=== PATIENT | female | born 1945 | race Caucasian/White ===

== ENCOUNTER → 2019-07-27 | Emergency (ER) | payer OTHER, MEDICAID ==
[~2019-07-27] VITALS: Ht 170.2 cm; Wt 88.0 kg
[2019-07-27 15:57] LABS: Basophils # (auto) 0 10 ^3/uL (0-0.2); Basophils % (auto) 0.4 % (0.0-2.0); Eosinophils # (auto) 0.2 10 ^3/uL (0-0.8); Eosinophils % (auto) 1.9 % (0.0-7.0); Hematocrit 47.3 % (36.0-46.0); Hemoglobin 15.6 g/dL (12.2-16.2); Lymphocytes # (auto) 1.8 10 ^3/uL (0.4-5.4); Lymphocytes % (auto) 19.8 % (10.0-50.0); Mean Corpuscular Hemoglobin 28.9 pg (28.0-32.0); Mean Corpuscular Hgb Conc. 33.1 g/dL (32.0-36.0); Mean Corpuscular Volume 87.3 fL (80.0-100.0); Monocytes # (auto) 0.7 10 ^3/uL (0-1.3); Monocytes % (auto) 7.3 % (0.0-12.0); Neutrophils # (auto) 6.5 10 ^3/uL (1.6-8.6); Neutrophils % (auto) 70.6 % (37.0-80.0); Platelet Count (auto) 250 10^3/uL (140-450); Red Blood Cells 5.42 10^6/uL (4.0-5.20); Red Cell Distribution Width 15.4 % (11.8-14.3); White Blood Cell 9.2 10^3/uL (4.4-10.8)
[2019-07-27 16:10] LABS: Albumin 3.9 g/dL (3.4-5.0); Anion Gap 6 (5-15); Blood Urea Nitrogen 21 mg/dL (7-18); Calcium 9.1 mg/dL (8.5-10.1); Carbon Dioxide 27 mmol/L (21-32); Chloride 109 mmol/L (98-107); Glucose 110 mg/dL (74-106); Sodium 142 mmol/L (136-145)
[2019-07-27 16:16] LABS: Alanine Aminotransferase 41 U/L (13-56); Alkaline Phosphatase 122 U/L (45-117); Aspartate Aminotransferase 30 U/L (15-37); BUN/Creatinine Ratio 23.3; Bilirubin, Total 0.6 mg/dL (0.2-1.0); GFR African American 79 mL/min; GFR Non-African American 65 mL/min; Total Protein 7.5 g/dL (6.4-8.2)
[2019-07-27 16:55] VITALS: BP 151/79
== END | disposition home or self-care (01) ==
LOC: ER 13:19
DX: R06.00 Dyspnea, unspecified (principal); J44.9 Chronic obstructive pulmonary disease, unspecified; I10 Essential (primary) hypertension; Z90.89 Acquired absence of other organs
CPT/HCPCS: 36415; 71045; 80053; 83880; 84484; 85025; 85379; 93005

== ENCOUNTER → 2020-03-01 | Outpatient (CLI) | payer OTHER, MEDICAID | END | disposition home or self-care (01) | LOC: XYW 09:21 | PROVIDERS: ATTEND Internal Medicine | DX: I11.9 Hypertensive heart disease without heart failure (principal) | CPT/HCPCS: 93306 ==

== ENCOUNTER → 2020-08-15 | Outpatient (CLI) | payer OTHER, MEDICAID ==
[~2020-08-15] VITALS: Ht 170.2 cm; Wt 95.3 kg
[~2020-08-15] MED LIST: ADENOSINE 80 MG in GIVE UN-DILUTED 0 ML IV STA
[2020-08-15 10:01] VITALS: BP 167/93
== END | disposition home or self-care (01) ==
LOC: XY 07:57
PROVIDERS: ATTEND Internal Medicine
DX: I10 Essential (primary) hypertension (principal)
CPT/HCPCS: 78452; 93017; A9500; J0153

== ENCOUNTER → 2020-08-16 | Outpatient (CLI) | payer OTHER, MEDICAID | END | disposition home or self-care (01) | LOC: XY 08:39 | PROVIDERS: ATTEND Internal Medicine | DX: I10 Essential (primary) hypertension (principal) | CPT/HCPCS: 93975 ==

== ENCOUNTER 2020-11-08 11:35 | Emergency (ER) | payer OTHER, MEDICAID ==
[~2020-11-08] VITALS: Ht 170.2 cm; Wt 86.2 kg
[~2020-11-08 11:35] MED LIST changes: -ADENOSINE 80 MG in GIVE UN-DILUTED 0 ML IV STA; +ATOR20TA50 PO; +CHOL20007 PO; +IRBE300T79 PO; +LEVO25TA49 PO; +METO-289 PO; +PANT40TA2 PO
[2020-11-08 12:08] LABS: Basophils # (auto) 0.1 10 ^3/uL (0-0.2); Basophils % (auto) 1.5 % (0.0-2.0); Eosinophils # (auto) 0.1 10 ^3/uL (0-0.8); Eosinophils % (auto) 1.4 % (0.0-7.0); Hematocrit 44.9 % (36.0-46.0); Hemoglobin 15.3 g/dL (12.2-16.2); Lymphocytes # (auto) 1.2 10 ^3/uL (0.4-5.4); Lymphocytes % (auto) 18.3 % (10.0-50.0); Mean Corpuscular Hemoglobin 29.7 pg (28.0-32.0); Mean Corpuscular Hgb Conc. 34.1 g/dL (32.0-36.0); Mean Corpuscular Volume 87.2 fL (80.0-100.0); Monocytes # (auto) 0.5 10 ^3/uL (0-1.3); Monocytes % (auto) 7.2 % (0.0-12.0); Neutrophils # (auto) 4.8 10 ^3/uL (1.6-8.6); Neutrophils % (auto) 71.6 % (37.0-80.0); Platelet Count (auto) 208 10^3/uL (140-450); Red Blood Cells 5.16 10^6/uL (4.0-5.20); Red Cell Distribution Width 14.7 % (11.8-14.3); White Blood Cell 6.6 10^3/uL (4.4-10.8)
[2020-11-08 12:27] LABS: Albumin 4.2 g/dL (3.4-5.0); Calcium 9.5 mg/dL (8.5-10.1); Magnesium 1.9 mg/dL (1.6-2.6); Potassium 4.1 mmol/L (3.5-5.1)
[2020-11-08 12:33] LABS: BUN/Creatinine Ratio 14.2; Bilirubin, Total 0.8 mg/dL (0.2-1.0); Total Protein 7.2 g/dL (6.4-8.2)
[2020-11-08] MEDS ORDERED: ONDANSETRON HCL 4 MG/2 ML VIAL IV ONE (13:00)
[2020-11-08] MEDS ORDERED: SODIUM CHLORIDE 0.9% 1,000 ML IVB ONE (13:00)
[2020-11-08 13:28] LABS: Magnesium 1.7 mg/dL (1.6-2.6)
[2020-11-08 14:40] LABS: Urine Bacteria NONE SEEN /hpf (None Seen); Urine Blood Negative /uL (Negative); Urine Hyaline Cast MOD /lpf (0 - 2); Urine Mucus FEW (None Seen); Urine Specific Gravity 1.028 (1.001-1.035); Urine WBC 35 /hpf (0 - 5); Urine WBC Clumps PRESENT /hpf (None Seen)
[2020-11-08] MEDS ORDERED: cefTRIAXone 1GM/50ML D5W 50 ML IV ONE (15:30)
[2020-11-08 16:32] VITALS: BP 126/106
== END 2020-11-08 16:38 | disposition home or self-care (01) ==
LOC: ER 11:35
DX: N39.0 Urinary tract infection, site not specified (principal); R11.0 Nausea; D13.5 Benign neoplasm of extrahepatic bile ducts; J44.9 Chronic obstructive pulmonary disease, unspecified; K21.9 Gastro-esophageal reflux disease without esophagitis; I10 Essential (primary) hypertension; Z90.89 Acquired absence of other organs; Z88.8 Allergy status to other drugs, medicaments and biological substances; Z79.899 Other long term (current) drug therapy
CPT/HCPCS: 36415; 71045; 74176; 76705; 80053; 81001; 82962; 83690; 83735; 84484; 85025; 96361; 96365; 96375; 99285; J0696; J2405; J7030

== ENCOUNTER 2020-11-10 23:24 | Emergency (ER) | payer OTHER, MEDICAID ==
[~2020-11-10] VITALS: Ht 170.2 cm; Wt 85.3 kg
[2020-11-11 01:27] LABS: Urine Bacteria NONE SEEN /hpf (None Seen); Urine Blood Negative /uL (Negative); Urine Mucus FEW (None Seen); Urine Specific Gravity 1.018 (1.001-1.035); Urine WBC 8 /hpf (0 - 5)
[2020-11-11 02:05] LABS: Basophils # (auto) 0 10 ^3/uL (0-0.2); Basophils % (auto) 0.4 % (0.0-2.0); Eosinophils # (auto) 0.1 10 ^3/uL (0-0.8); Eosinophils % (auto) 1.2 % (0.0-7.0); Hematocrit 45.8 % (36.0-46.0); Lymphocytes # (auto) 1.4 10 ^3/uL (0.4-5.4); Lymphocytes % (auto) 15.3 % (10.0-50.0); Mean Corpuscular Hgb Conc. 32.7 g/dL (32.0-36.0); Mean Corpuscular Volume 88.8 fL (80.0-100.0); Monocytes # (auto) 0.6 10 ^3/uL (0-1.3); Monocytes % (auto) 6.6 % (0.0-12.0); Neutrophils # (auto) 6.8 10 ^3/uL (1.6-8.6); Neutrophils % (auto) 76.5 % (37.0-80.0); Nucleated Red Blood Cells % 0.1 %; Platelet Count (auto) 187 10^3/uL (140-450); Red Blood Cells 5.15 10^6/uL (4.0-5.20); Red Cell Distribution Width 14.8 % (11.8-14.3); White Blood Cell 8.9 10^3/uL (4.4-10.8)
[2020-11-11 02:23] LABS: Albumin 3.7 g/dL (3.4-5.0); BUN/Creatinine Ratio 14.5; Calcium 8.7 mg/dL (8.5-10.1); Potassium 3.8 mmol/L (3.5-5.1)
[2020-11-11 02:26] LABS: Bilirubin, Total 1.4 mg/dL (0.2-1.0); Total Protein 6.9 g/dL (6.4-8.2)
[2020-11-11] MEDS ORDERED: cefTRIAXone 1GM/50ML D5W 50 ML IV ONE (11:00)
[2020-11-11 12:21] VITALS: BP 128/68
== END 2020-11-11 12:55 | disposition home or self-care (01) ==
LOC: ER 23:24
DX: E86.0 Dehydration (principal); N39.0 Urinary tract infection, site not specified; C34.11 Malignant neoplasm of upper lobe, right bronchus or lung; J44.9 Chronic obstructive pulmonary disease, unspecified; K21.9 Gastro-esophageal reflux disease without esophagitis; E78.5 Hyperlipidemia, unspecified; I10 Essential (primary) hypertension; Z86.73 Personal history of transient ischemic attack (TIA), and cerebral infarction without residual deficits
CPT/HCPCS: 36415; 71045; 80053; 81001; 85025; 96365; 99284; J0696

== ENCOUNTER 2020-11-17 14:24 | Emergency (ER) | payer OTHER, MEDICAID ==
[~2020-11-17] VITALS: Ht 170.2 cm; Wt 85.3 kg
[2020-11-17 15:22] LABS: Basophils # (auto) 0.1 10 ^3/uL (0-0.2); Basophils % (auto) 1.7 % (0.0-2.0); Eosinophils # (auto) 0.3 10 ^3/uL (0-0.8); Hematocrit 44.5 % (36.0-46.0); Hemoglobin 15.4 g/dL (12.2-16.2); Lymphocytes # (auto) 1.3 10 ^3/uL (0.4-5.4); Lymphocytes % (auto) 20.6 % (10.0-50.0); Mean Corpuscular Hemoglobin 29.5 pg (28.0-32.0); Mean Corpuscular Hgb Conc. 34.6 g/dL (32.0-36.0); Mean Corpuscular Volume 85.5 fL (80.0-100.0); Monocytes # (auto) 0.6 10 ^3/uL (0-1.3); Monocytes % (auto) 8.7 % (0.0-12.0); Neutrophils # (auto) 4.1 10 ^3/uL (1.6-8.6); Nucleated Red Blood Cells % 0.1 %; Red Cell Distribution Width 15.3 % (11.8-14.3); White Blood Cell 6.3 10^3/uL (4.4-10.8)
[2020-11-17 15:38] LABS: Albumin 3.9 g/dL (3.4-5.0); Potassium 3.2 mmol/L (3.5-5.1)
[2020-11-17 15:42] LABS: BUN/Creatinine Ratio 23.1; Bilirubin, Total 0.8 mg/dL (0.2-1.0); Total Protein 7.1 g/dL (6.4-8.2)
[2020-11-17] MEDS ORDERED: POTASSIUM EFFERVESENT TAB 25 MEQ PO ONE (16:30)
[2020-11-17 16:52] LABS: Urine Bacteria NONE SEEN /hpf (None Seen); Urine Blood 1+ /uL (Negative); Urine Hyaline Cast MANY /lpf (0 - 2); Urine Mucus MANY (None Seen); Urine Specific Gravity 1.031 (1.001-1.035); Urine WBC 5 /hpf (0 - 5)
[2020-11-17 18:22] VITALS: BP 142/69
== END 2020-11-17 18:29 | disposition home or self-care (01) ==
LOC: ER 14:24
DX: N39.0 Urinary tract infection, site not specified (principal); I10 Essential (primary) hypertension; J44.9 Chronic obstructive pulmonary disease, unspecified; K21.9 Gastro-esophageal reflux disease without esophagitis; E78.5 Hyperlipidemia, unspecified; Z90.89 Acquired absence of other organs; Z85.118 Personal history of other malignant neoplasm of bronchus and lung; Z86.73 Personal history of transient ischemic attack (TIA), and cerebral infarction without residual deficits; Z88.8 Allergy status to other drugs, medicaments and biological substances; Z79.899 Other long term (current) drug therapy
CPT/HCPCS: 36415; 71045; 74176; 80053; 81001; 85025; 85049

== ENCOUNTER 2020-11-27 16:14 | Emergency (ER) | payer OTHER, MEDICAID ==
[~2020-11-27] VITALS: Ht 170.2 cm; Wt 81.6 kg
[2020-11-27 18:20] LABS: Urine WBC None Seen /hpf (0 - 5)
[2020-11-27 18:28] LABS: Basophils # (auto) 0.1 10 ^3/uL (0-0.2); Basophils % (auto) 1.2 % (0.0-2.0); Eosinophils # (auto) 0.2 10 ^3/uL (0-0.8); Eosinophils % (auto) 2.7 % (0.0-7.0); Hematocrit 43.7 % (36.0-46.0); Hemoglobin 15.2 g/dL (12.2-16.2); Lymphocytes # (auto) 1.6 10 ^3/uL (0.4-5.4); Lymphocytes % (auto) 21.7 % (10.0-50.0); Mean Corpuscular Hgb Conc. 34.8 g/dL (32.0-36.0); Mean Corpuscular Volume 86.2 fL (80.0-100.0); Monocytes # (auto) 0.5 10 ^3/uL (0-1.3); Monocytes % (auto) 7.4 % (0.0-12.0); Neutrophils # (auto) 4.8 10 ^3/uL (1.6-8.6); Nucleated Red Blood Cells % 0.1 %; Platelet Count (auto) 236 10^3/uL (140-450); Red Blood Cells 5.07 10^6/uL (4.0-5.20); Red Cell Distribution Width 15.8 % (11.8-14.3); White Blood Cell 7.1 10^3/uL (4.4-10.8)
[2020-11-27] MEDS ORDERED: ONDANSETRON ODT 4 MG TAB PO ONE (18:30)
[2020-11-27 18:44] LABS: Albumin 4.4 g/dL (3.4-5.0); Calcium 9.2 mg/dL (8.5-10.1); Potassium 3.3 mmol/L (3.5-5.1)
[2020-11-27 18:47] LABS: Bilirubin, Total 0.7 mg/dL (0.2-1.0); Total Protein 7.5 g/dL (6.4-8.2)
[2020-11-27 18:51] LABS: Urine Bacteria NONE SEEN /hpf (None Seen); Urine Blood Negative /uL (Negative); Urine Mucus FEW (None Seen); Urine Specific Gravity 1.017 (1.001-1.035)
[2020-11-27] MEDS ORDERED: SODIUM CHLORIDE 0.9% 500 ML IV ONE (20:15)
[2020-11-27] MEDS ORDERED: ONDANSETRON HCL 4 MG/2 ML VIAL IV ONE (20:15)
[2020-11-27 20:55] VITALS: BP 110/63
== END 2020-11-27 22:00 | disposition home or self-care (01) ==
LOC: ER 16:14
DX: K29.70 Gastritis, unspecified, without bleeding (principal); J44.9 Chronic obstructive pulmonary disease, unspecified; K21.9 Gastro-esophageal reflux disease without esophagitis; E78.5 Hyperlipidemia, unspecified; I10 Essential (primary) hypertension; Z86.73 Personal history of transient ischemic attack (TIA), and cerebral infarction without residual deficits
CPT/HCPCS: 36415; 80053; 81001; 83605; 85025; 85049; 93005; 99284; J7040; Q0162

== ENCOUNTER 2020-12-18 16:27 | Emergency (ER) | payer OTHER, MEDICAID ==
[~2020-12-18] VITALS: Ht 170.2 cm; Wt 79.4 kg
[2020-12-18 19:08] LABS: Urine Bacteria FEW /hpf (None Seen); Urine Blood Negative /uL (Negative); Urine Hyaline Cast FEW /lpf (0 - 2); Urine Mucus FEW (None Seen); Urine Specific Gravity 1.022 (1.001-1.035); Urine WBC 7 /hpf (0 - 5)
[2020-12-18 19:31] LABS: Basophils # (auto) 0 10 ^3/uL (0-0.2); Basophils % (auto) 0.7 % (0.0-2.0); Eosinophils # (auto) 0.2 10 ^3/uL (0-0.8); Eosinophils % (auto) 2.6 % (0.0-7.0); Hematocrit 45.4 % (36.0-46.0); Hemoglobin 15.4 g/dL (12.2-16.2); Lymphocytes # (auto) 1.4 10 ^3/uL (0.4-5.4); Lymphocytes % (auto) 21.8 % (10.0-50.0); Mean Corpuscular Hemoglobin 29.6 pg (28.0-32.0); Mean Corpuscular Hgb Conc. 33.8 g/dL (32.0-36.0); Mean Corpuscular Volume 87.4 fL (80.0-100.0); Monocytes # (auto) 0.5 10 ^3/uL (0-1.3); Monocytes % (auto) 7.5 % (0.0-12.0); Neutrophils # (auto) 4.4 10 ^3/uL (1.6-8.6); Neutrophils % (auto) 67.4 % (37.0-80.0); Red Cell Distribution Width 16.3 % (11.8-14.3); White Blood Cell 6.5 10^3/uL (4.4-10.8)
[2020-12-18 19:44] LABS: Calcium 9.7 mg/dL (8.5-10.1); Potassium 3.4 mmol/L (3.5-5.1)
[2020-12-18 19:50] LABS: Albumin 4.3 g/dL (3.4-5.0); BUN/Creatinine Ratio 21.1; Bilirubin, Total 0.9 mg/dL (0.2-1.0); Magnesium 2.4 mg/dL (1.6-2.6); Total Protein 7.7 g/dL (6.4-8.2)
[2020-12-18 21:10] VITALS: BP 165/81
== END 2020-12-18 21:12 | disposition home or self-care (01) ==
LOC: ER 16:27
DX: N39.0 Urinary tract infection, site not specified (principal); R53.1 Weakness; J44.9 Chronic obstructive pulmonary disease, unspecified; K21.9 Gastro-esophageal reflux disease without esophagitis; E78.5 Hyperlipidemia, unspecified; I10 Essential (primary) hypertension; Z86.73 Personal history of transient ischemic attack (TIA), and cerebral infarction without residual deficits
CPT/HCPCS: 36415; 80053; 81001; 83735; 85025; 93005

== ENCOUNTER 2021-01-11 12:51 | Inpatient (IN) | payer OTHER, MEDICAID ==
[~2021-01-11] VITALS: Ht 170.2 cm; Wt 81.4 kg
[2021-01-11] MEDS ORDERED: SODIUM CHLORIDE 0.9% 1,000 ML IVB ONE (14:45)
[2021-01-11] MEDS ORDERED: ONDANSETRON HCL 4 MG/2 ML VIAL IV ONE (14:45)
[2021-01-11 14:53] LABS: Basophils # (auto) 0 10 ^3/uL (0-0.2); Basophils % (auto) 0.7 % (0.0-2.0); Eosinophils # (auto) 0.1 10 ^3/uL (0-0.8); Hematocrit 43.2 % (36.0-46.0); Hemoglobin 14.3 g/dL (12.2-16.2); Lymphocytes # (auto) 1.5 10 ^3/uL (0.4-5.4); Lymphocytes % (auto) 20.8 % (10.0-50.0); Mean Corpuscular Hemoglobin 29.5 pg (28.0-32.0); Mean Corpuscular Hgb Conc. 33.1 g/dL (32.0-36.0); Mean Corpuscular Volume 89.2 fL (80.0-100.0); Monocytes # (auto) 0.6 10 ^3/uL (0-1.3); Monocytes % (auto) 8.1 % (0.0-12.0); Neutrophils # (auto) 4.8 10 ^3/uL (1.6-8.6); Neutrophils % (auto) 68.4 % (37.0-80.0); Nucleated Red Blood Cells % 0.1 %; Red Blood Cells 4.85 10^6/uL (4.0-5.20); Red Cell Distribution Width 16.5 % (11.8-14.3)
[2021-01-11 15:09] LABS: Albumin 3.8 g/dL (3.4-5.0); Anion Gap 5 (5-15); Blood Urea Nitrogen 16 mg/dL (7-18); Calcium 9.4 mg/dL (8.5-10.1); Carbon Dioxide 28 mmol/L (21-32); Chloride 107 mmol/L (98-107); Glucose 118 mg/dL (74-106); Lipase 61 U/L (73-393); Magnesium 2.3 mg/dL (1.6-2.6); Potassium 3.9 mmol/L (3.5-5.1); Sodium 140 mmol/L (136-145)
[2021-01-11 15:19] LABS: Alanine Aminotransferase 107 U/L (13-56); Alkaline Phosphatase 75 U/L (45-117); Aspartate Aminotransferase 50 U/L (15-37); BUN/Creatinine Ratio 24.2; Bilirubin, Total 0.8 mg/dL (0.2-1.0); GFR African American 112 mL/min; GFR Non-African American 93 mL/min; Total Protein 6.9 g/dL (6.4-8.2)
[2021-01-11 16:09] LABS: Urine Bacteria NONE SEEN /hpf (None Seen); Urine Blood Negative /uL (Negative); Urine Hyaline Cast MOD /lpf (0 - 2); Urine Mucus MODERATE (None Seen); Urine WBC 11 /hpf (0 - 5)
[2021-01-11] MEDS ORDERED: cefTRIAXone 1GM/50ML D5W 50 ML IV ONE (16:30)
[2021-01-11] MEDS ORDERED: ALBUTEROL SULF 2.5 MG/0.5ML(0.5%) NEB SOLN NEB PRN (18:15)
[2021-01-11] MEDS ORDERED: MORPHINE SULFATE INJECTION 2 MG/ML SYRG IV PRN ×2 (18:15)
[2021-01-11] MEDS ORDERED: ACETAMINOPHEN 500 MG TAB PO PRN (18:15)
[2021-01-11] MEDS ORDERED: LORazepam 0.5 MG TAB PO PRN (18:15)
[2021-01-11] MEDS ORDERED: ONDANSETRON HCL 4 MG/2 ML VIAL IV PRN (18:15)
[2021-01-11] MEDS ORDERED: IPRATROPIUM BROM 0.5 MG/2.5ML INH SOL NEB PRN (18:15)
[2021-01-11] MEDS ORDERED: DOCUSATE CALCIUM 240 MG CAP PO PRN (18:15)
[2021-01-11] MEDS ORDERED: NITROGLYCERIN 0.4 MG SL TAB SL PRN (18:15)
[2021-01-12] MEDS: SODIUM CHLORIDE 0.9% 1,000 ML IV SCH ×3 (03:24→21:10)
[2021-01-12 05:06] LABS: Basophils # (auto) 0 10 ^3/uL (0-0.2); Basophils % (auto) 0.6 % (0.0-2.0); Eosinophils # (auto) 0.2 10 ^3/uL (0-0.8); Eosinophils % (auto) 3.6 % (0.0-7.0); Hematocrit 43.9 % (36.0-46.0); Hemoglobin 14.6 g/dL (12.2-16.2); Lymphocytes # (auto) 1.5 10 ^3/uL (0.4-5.4); Lymphocytes % (auto) 26.1 % (10.0-50.0); Mean Corpuscular Hemoglobin 29.8 pg (28.0-32.0); Mean Corpuscular Hgb Conc. 33.2 g/dL (32.0-36.0); Mean Corpuscular Volume 89.6 fL (80.0-100.0); Monocytes # (auto) 0.5 10 ^3/uL (0-1.3); Monocytes % (auto) 8.5 % (0.0-12.0); Neutrophils # (auto) 3.4 10 ^3/uL (1.6-8.6); Neutrophils % (auto) 61.2 % (37.0-80.0); Nucleated Red Blood Cells % 0.3 %; Red Cell Distribution Width 16.2 % (11.8-14.3); White Blood Cell 5.6 10^3/uL (4.4-10.8)
[2021-01-12 05:20] LABS: INR 1.09 (0.9-1.15)
[2021-01-12 05:30] LABS: Potassium 3.5 mmol/L (3.5-5.1)
[2021-01-12 05:33] LABS: Albumin 3.8 g/dL (3.4-5.0); Bilirubin, Total 0.7 mg/dL (0.2-1.0); Calcium 9.1 mg/dL (8.5-10.1); Total Protein 7.1 g/dL (6.4-8.2)
[2021-01-12] MEDS: cefTRIAXone 1GM/50ML D5W 50 ML IV SCH (08:33)
[2021-01-12] MEDS: PANTOPRAZOLE 40 MG TAB PO SCH (08:33)
[2021-01-12] MEDS: ENOXAPARIN SOD 40 MG/0.4 ML SYRINGE SC SCH (08:50)
[2021-01-12 16:00] VITALS: BP 144/77
[2021-01-12 22:00] VITALS: BP 112/59
[2021-01-13] MEDS: SODIUM CHLORIDE 0.9% 1,000 ML IV SCH ×2 (00:46→10:30)
[2021-01-13 05:00] VITALS: BP 122/65
[2021-01-13 09:00] VITALS: BP 135/77
[2021-01-13] MEDS: cefTRIAXone 1GM/50ML D5W 50 ML IV SCH (09:00)
[2021-01-13] MEDS: PANTOPRAZOLE 40 MG TAB PO SCH (10:00)
[2021-01-13] MEDS: ENOXAPARIN SOD 40 MG/0.4 ML SYRINGE SC SCH (10:00)
[2021-01-13 13:00] VITALS: BP 151/81
[2021-01-13 16:50] VITALS: BP 148/97
[2021-01-13] MEDS: SUCRALFATE 1 GM/10 ML ORAL SUSP PO SCH ×2 (17:00→22:15)
[2021-01-13 20:00] VITALS: BP 141/77
[2021-01-13 22:00] VITALS: BP 141/72
[2021-01-14] VITALS (7 sets, daily range): BP systolic 127–166; BP diastolic 46–90
[2021-01-14] MEDS: LABETALOL HCL 5 MG/ML 4ML SYRINGE IV PRN (04:59)
[2021-01-14] MEDS: SUCRALFATE 1 GM/10 ML ORAL SUSP PO SCH ×4 (06:35→21:53)
[2021-01-14] MEDS: cefTRIAXone 1GM/50ML D5W 50 ML IV SCH (09:00)
[2021-01-14] MEDS: PANTOPRAZOLE 40 MG TAB PO SCH (10:00)
[2021-01-14] MEDS: ENOXAPARIN SOD 40 MG/0.4 ML SYRINGE SC SCH (10:00)
[2021-01-14] MEDS ORDERED: LACTULOSE 20Gm/30ML SOLN PO ONE (10:30)
[2021-01-14] MEDS: SODIUM CHLORIDE 0.9% 1,000 ML IV SCH (13:10)
[2021-01-15] MEDS: SODIUM CHLORIDE 0.9% 1,000 ML IV SCH (02:43)
[2021-01-15] MEDS: LABETALOL HCL 5 MG/ML 4ML SYRINGE IV PRN (03:46)
[2021-01-15 05:30] VITALS: BP 158/76
[2021-01-15] MEDS: SUCRALFATE 1 GM/10 ML ORAL SUSP PO SCH ×4 (06:30→22:26)
[2021-01-15 09:00] VITALS: BP_SYST 145; BP_SYST 147; BP_DIAS 77
[2021-01-15] MEDS: ENOXAPARIN SOD 40 MG/0.4 ML SYRINGE SC SCH (09:32)
[2021-01-15] MEDS: PANTOPRAZOLE 40 MG TAB PO SCH (09:32)
[2021-01-15] MEDS: cefTRIAXone 1GM/50ML D5W 50 ML IV SCH (09:33)
[2021-01-15 22:00] VITALS: BP 137/80
[2021-01-15] MEDS: VANCOMYCIN HCL 125MG/5ML ORAL SOL PO SCH ×2 (22:26→22:46)
[2021-01-15] MEDS: metroNIDAZOLE 500MG/100ML 100 ML IV SCH (22:26)
[2021-01-16 05:00] VITALS: BP 130/71
[2021-01-16] MEDS: SODIUM CHLORIDE 0.9% 1,000 ML IV SCH (05:10)
[2021-01-16] MEDS: VANCOMYCIN HCL 125MG/5ML ORAL SOL PO SCH ×3 (05:44→12:00)
[2021-01-16] MEDS: metroNIDAZOLE 500MG/100ML 100 ML IV SCH (05:57)
[2021-01-16] MEDS: SUCRALFATE 1 GM/10 ML ORAL SUSP PO SCH ×2 (05:59→11:30)
[2021-01-16 08:45] VITALS: BP 152/85
[2021-01-16] MEDS: ENOXAPARIN SOD 40 MG/0.4 ML SYRINGE SC SCH (09:00)
[2021-01-16] MEDS: cefTRIAXone 1GM/50ML D5W 50 ML IV SCH (09:00)
[2021-01-16] MEDS: PANTOPRAZOLE 40 MG TAB PO SCH (09:00)
[2021-01-16 12:04] VITALS: BP 138/74
== END 2021-01-16 12:40 | disposition home or self-care (01) | DRG 372 ==
LOC: ER 12:51 → TELE 18:06 → TELE-CENTR 01-12 15:34
PROVIDERS: ADMIT Family Medicine; ATTEND Family Medicine
DX: A04.72 Enterocolitis due to Clostridium difficile, not specified as recurrent (principal); N39.0 Urinary tract infection, site not specified; R64 Cachexia; K80.20 Calculus of gallbladder without cholecystitis without obstruction; Z20.822 Contact with and (suspected) exposure to COVID-19; E86.0 Dehydration; R73.9 Hyperglycemia, unspecified; E03.9 Hypothyroidism, unspecified; I10 Essential (primary) hypertension; I70.8 Atherosclerosis of other arteries; J44.9 Chronic obstructive pulmonary disease, unspecified; K44.9 Diaphragmatic hernia without obstruction or gangrene; K21.9 Gastro-esophageal reflux disease without esophagitis; R13.10 Dysphagia, unspecified; E78.5 Hyperlipidemia, unspecified; Z85.118 Personal history of other malignant neoplasm of bronchus and lung; Z88.8 Allergy status to other drugs, medicaments and biological substances; Z68.26 Body mass index [BMI] 26.0-26.9, adult; Z86.73 Personal history of transient ischemic attack (TIA), and cerebral infarction without residual deficits; Z87.440 Personal history of urinary (tract) infections; Z90.2 Acquired absence of lung [part of]; Z90.89 Acquired absence of other organs; Z87.891 Personal history of nicotine dependence; Z79.899 Other long term (current) drug therapy
CPT/HCPCS: 36415; 70450; 71045; 74176; 76705; 78226; 80053; 81001; 83036; 83690; 83735; 84443; 84484; 85025; 85610; 87086; 87426; 87493; 93005; 96374; G0378; J0696; J2405; J3490

== ENCOUNTER 2021-01-20 15:01 | Emergency (ER) | payer OTHER, MEDICAID ==
[~2021-01-20] VITALS: Ht 170.2 cm; Wt 74.8 kg
[2021-01-20] MEDS ORDERED: SODIUM CHLORIDE 0.9% 1,000 ML IV ONE (16:15)
[2021-01-20 16:56] LABS: Basophils # (auto) 0.1 10 ^3/uL (0-0.2); Basophils % (auto) 1.4 % (0.0-2.0); Eosinophils # (auto) 0.1 10 ^3/uL (0-0.8); Hematocrit 43.6 % (36.0-46.0); Hemoglobin 14.6 g/dL (12.2-16.2); Lymphocytes # (auto) 1.3 10 ^3/uL (0.4-5.4); Lymphocytes % (auto) 21.4 % (10.0-50.0); Mean Corpuscular Hemoglobin 29.9 pg (28.0-32.0); Mean Corpuscular Hgb Conc. 33.4 g/dL (32.0-36.0); Mean Corpuscular Volume 89.6 fL (80.0-100.0); Monocytes # (auto) 0.5 10 ^3/uL (0-1.3); Monocytes % (auto) 9.2 % (0.0-12.0); Neutrophils # (auto) 3.9 10 ^3/uL (1.6-8.6); Nucleated Red Blood Cells % 0.1 %; Red Blood Cells 4.87 10^6/uL (4.0-5.20); Red Cell Distribution Width 16.3 % (11.8-14.3); White Blood Cell 5.9 10^3/uL (4.4-10.8)
[2021-01-20 17:12] LABS: Albumin 3.6 g/dL (3.4-5.0); Anion Gap 8 (5-15); Blood Urea Nitrogen 11 mg/dL (7-18); Calcium 9.4 mg/dL (8.5-10.1); Carbon Dioxide 26 mmol/L (21-32); Chloride 110 mmol/L (98-107); Glucose 94 mg/dL (74-106); Potassium 3.4 mmol/L (3.5-5.1); Sodium 144 mmol/L (136-145)
[2021-01-20 17:21] LABS: Alanine Aminotransferase 181 U/L (13-56); Alkaline Phosphatase 84 U/L (45-117); Aspartate Aminotransferase 119 U/L (15-37); BUN/Creatinine Ratio 15.9; Bilirubin, Total 0.9 mg/dL (0.2-1.0); GFR African American 107 mL/min; GFR Non-African American 88 mL/min; Total Protein 6.4 g/dL (6.4-8.2)
[2021-01-20 18:16] VITALS: BP 141/69
== END 2021-01-20 18:30 | disposition home or self-care (01) ==
LOC: ER 15:01
DX: A04.72 Enterocolitis due to Clostridium difficile, not specified as recurrent (principal); E87.6 Hypokalemia; K80.80 Other cholelithiasis without obstruction; J44.9 Chronic obstructive pulmonary disease, unspecified; E78.5 Hyperlipidemia, unspecified; I10 Essential (primary) hypertension; Z90.89 Acquired absence of other organs; Z88.8 Allergy status to other drugs, medicaments and biological substances; Z86.73 Personal history of transient ischemic attack (TIA), and cerebral infarction without residual deficits
CPT/HCPCS: 36415; 71045; 74176; 80053; 84484; 85025; 96360; 99285; J7030

== ENCOUNTER 2021-01-23 13:35 | Emergency (ER) | payer OTHER, MEDICAID ==
[~2021-01-23] VITALS: Ht 170.2 cm; Wt 72.6 kg
[2021-01-23 13:40] VITALS: BP 133/90
[2021-01-23] MEDS ORDERED: SODIUM CHLORIDE 0.9% 1,000 ML IV ONE ×2 (15:15)
[2021-01-23 16:36] LABS: Basophils # (auto) 0 10 ^3/uL (0-0.2); Basophils % (auto) 0.9 % (0.0-2.0); Eosinophils # (auto) 0.1 10 ^3/uL (0-0.8); Eosinophils % (auto) 2.5 % (0.0-7.0); Hematocrit 42.8 % (36.0-46.0); Hemoglobin 14.5 g/dL (12.2-16.2); Lymphocytes # (auto) 1.5 10 ^3/uL (0.4-5.4); Lymphocytes % (auto) 25.8 % (10.0-50.0); Mean Corpuscular Hemoglobin 30.2 pg (28.0-32.0); Mean Corpuscular Hgb Conc. 33.9 g/dL (32.0-36.0); Mean Corpuscular Volume 89.2 fL (80.0-100.0); Monocytes # (auto) 0.5 10 ^3/uL (0-1.3); Monocytes % (auto) 9.5 % (0.0-12.0); Neutrophils # (auto) 3.4 10 ^3/uL (1.6-8.6); Neutrophils % (auto) 61.3 % (37.0-80.0); Nucleated Red Blood Cells % 0.2 %; Red Cell Distribution Width 15.6 % (11.8-14.3); White Blood Cell 5.6 10^3/uL (4.4-10.8)
[2021-01-23 16:55] LABS: Albumin 3.8 g/dL (3.4-5.0)
[2021-01-23 17:01] LABS: BUN/Creatinine Ratio 6.8; Bilirubin, Total 0.8 mg/dL (0.2-1.0); Total Protein 6.7 g/dL (6.4-8.2)
== END 2021-01-23 19:47 | disposition home or self-care (01) ==
LOC: ER 13:37
DX: R53.1 Weakness (principal); R10.84 Generalized abdominal pain; R11.2 Nausea with vomiting, unspecified; R19.7 Diarrhea, unspecified; J44.9 Chronic obstructive pulmonary disease, unspecified; K21.9 Gastro-esophageal reflux disease without esophagitis; E78.5 Hyperlipidemia, unspecified; I10 Essential (primary) hypertension; Z90.89 Acquired absence of other organs; Z79.899 Other long term (current) drug therapy; Z88.8 Allergy status to other drugs, medicaments and biological substances
CPT/HCPCS: 36415; 80053; 84484; 85025; 93005

== ENCOUNTER 2021-02-06 17:19 | Emergency (ER) | payer OTHER, MEDICAID ==
[~2021-02-06] VITALS: Ht 170.2 cm; Wt 71.7 kg
[2021-02-06] MEDS ORDERED: SODIUM CHLORIDE 0.9% 1,000 ML IV ONE (17:30)
[2021-02-06 19:13] LABS: Basophils # (auto) 0 10 ^3/uL (0-0.2); Basophils % (auto) 0.7 % (0.0-2.0); Eosinophils # (auto) 0.2 10 ^3/uL (0-0.8); Eosinophils % (auto) 2.7 % (0.0-7.0); Hematocrit 44.2 % (36.0-46.0); Hemoglobin 14.8 g/dL (12.2-16.2); Lymphocytes # (auto) 1.5 10 ^3/uL (0.4-5.4); Lymphocytes % (auto) 21.3 % (10.0-50.0); Mean Corpuscular Hgb Conc. 33.6 g/dL (32.0-36.0); Mean Corpuscular Volume 89.4 fL (80.0-100.0); Monocytes # (auto) 0.4 10 ^3/uL (0-1.3); Monocytes % (auto) 6.1 % (0.0-12.0); Neutrophils % (auto) 69.2 % (37.0-80.0); Red Blood Cells 4.94 10^6/uL (4.0-5.20); Red Cell Distribution Width 15.1 % (11.8-14.3); White Blood Cell 7.2 10^3/uL (4.4-10.8)
[2021-02-06 19:27] LABS: INR 1.03 (0.9-1.15); Partial Thromboplastin Time 24.5 sec (23.6-33.0)
[2021-02-06 19:29] LABS: Alanine Aminotransferase 66 U/L (13-56); Anion Gap 8 (5-15); Aspartate Aminotransferase 36 U/L (15-37); BUN/Creatinine Ratio 34.4; Blood Urea Nitrogen 21 mg/dL (7-18); Calcium 9.5 mg/dL (8.5-10.1); Carbon Dioxide 26 mmol/L (21-32); Chloride 109 mmol/L (98-107); GFR African American 123 mL/min; GFR Non-African American 102 mL/min; Glucose 96 mg/dL (74-106); Potassium 3.3 mmol/L (3.5-5.1); Sodium 143 mmol/L (136-145)
[2021-02-06 19:35] LABS: Alkaline Phosphatase 65 U/L (45-117); Bilirubin, Total 0.7 mg/dL (0.2-1.0); Total Protein 7.2 g/dL (6.4-8.2)
[2021-02-07 04:42] VITALS: BP 154/80
== END 2021-02-07 04:52 | disposition home or self-care (01) ==
LOC: ER 17:19
DX: R62.7 Adult failure to thrive (principal); R53.1 Weakness; I10 Essential (primary) hypertension; J44.9 Chronic obstructive pulmonary disease, unspecified; E78.5 Hyperlipidemia, unspecified; Z86.73 Personal history of transient ischemic attack (TIA), and cerebral infarction without residual deficits; Z88.8 Allergy status to other drugs, medicaments and biological substances; Z20.822 Contact with and (suspected) exposure to COVID-19; Z90.89 Acquired absence of other organs; Z85.118 Personal history of other malignant neoplasm of bronchus and lung
CPT/HCPCS: 36415; 71045; 76705; 80053; 83605; 83690; 84484; 85025; 85610; 85730; 87040; 87426; 93005; 96360; 96361; 99285; J7030

== ENCOUNTER 2021-02-07 15:44 | Inpatient (IN) | payer OTHER, MEDICAID ==
[~2021-02-07] VITALS: Ht 30.5 cm; Wt 93.3 kg
[2021-02-07 17:55] VITALS: BP 144/82
[2021-02-07] MEDS ORDERED: HYDROcodone-ACET 5/325MG TAB PO PRN (18:15)
[2021-02-07] MEDS ORDERED: NITROGLYCERIN 0.4 MG SL TAB SL PRN (18:15)
[2021-02-07] MEDS ORDERED: MORPHINE SULFATE INJECTION 2 MG/ML SYRG IV PRN ×2 (18:15)
[2021-02-07] MEDS ORDERED: ALBUTEROL SULF 2.5 MG/0.5ML(0.5%) NEB SOLN NEB PRN (18:15)
[2021-02-07] MEDS ORDERED: ONDANSETRON HCL 4 MG/2 ML VIAL IV PRN (18:15)
[2021-02-07] MEDS ORDERED: SOD CHL 0.9%/ KCL 40MEQ 1,000 ML IV ONE (18:15)
[2021-02-07] MEDS ORDERED: DOCUSATE SOD 100 MG CAP PO PRN (18:15)
[2021-02-07] MEDS ORDERED: ACETAMINOPHEN 500 MG TAB PO PRN (18:15)
[2021-02-07] MEDS ORDERED: IPRATROPIUM BROM 0.5 MG/2.5ML INH SOL NEB PRN (18:15)
[2021-02-07] MEDS: ATORVASTATIN 20 MG TAB PO SCH (21:07)
[2021-02-07 22:00] VITALS: BP 129/74
[2021-02-08 00:21] LABS: Urine Bacteria NONE SEEN /hpf (None Seen); Urine Blood Negative /uL (Negative); Urine Hyaline Cast FEW /lpf (0 - 2); Urine Mucus FEW (None Seen); Urine WBC 6 /hpf (0 - 5)
[2021-02-08 05:00] VITALS: BP 139/85
[2021-02-08] MEDS: LEVOTHYROXINE SODIUM 50 MCG TAB PO SCH (06:41)
[2021-02-08 09:00] VITALS: BP 108/44
[2021-02-08] MEDS: PANTOPRAZOLE 40 MG TAB PO SCH (10:20)
[2021-02-08] MEDS: METOPROLOL SUCCINATE XL 50 MG TAB PO SCH (10:21)
[2021-02-08 13:00] VITALS: BP 148/75
[2021-02-08 13:31] LABS: Basophils # (auto) 0 10 ^3/uL (0-0.2); Basophils % (auto) 0.6 % (0.0-2.0); Eosinophils # (auto) 0.4 10 ^3/uL (0-0.8); Eosinophils % (auto) 6.6 % (0.0-7.0); Hematocrit 40.1 % (36.0-46.0); Hemoglobin 13.7 g/dL (12.2-16.2); Lymphocytes # (auto) 1.4 10 ^3/uL (0.4-5.4); Lymphocytes % (auto) 20.9 % (10.0-50.0); Mean Corpuscular Hemoglobin 30.5 pg (28.0-32.0); Mean Corpuscular Hgb Conc. 34.3 g/dL (32.0-36.0); Monocytes # (auto) 0.5 10 ^3/uL (0-1.3); Monocytes % (auto) 7.5 % (0.0-12.0); Neutrophils # (auto) 4.2 10 ^3/uL (1.6-8.6); Neutrophils % (auto) 64.4 % (37.0-80.0); Nucleated Red Blood Cells % 0.1 %; Red Blood Cells 4.51 10^6/uL (4.0-5.20); Red Cell Distribution Width 15.1 % (11.8-14.3); White Blood Cell 6.5 10^3/uL (4.4-10.8)
[2021-02-08 13:52] LABS: Albumin 3.4 g/dL (3.4-5.0); BUN/Creatinine Ratio 16.1; Magnesium 1.9 mg/dL (1.6-2.6); Potassium 3.6 mmol/L (3.5-5.1)
[2021-02-08 13:55] LABS: Bilirubin, Total 0.8 mg/dL (0.2-1.0); Phosphorus 3.6 mg/dL (2.5-4.90); Total Protein 6.3 g/dL (6.4-8.2)
[2021-02-08] MEDS ORDERED: OMNIPAQUE ORAL SOLN 500ml 12mg/ml PO ONE (14:54)
[2021-02-08] MEDS ORDERED: IOHEXOL 300 MG/ML 100ML BOTTLE IJ ONE (16:20)
[2021-02-08] MEDS ORDERED: IOHEXOL 350 MG/ML 100ML IJ ONE (16:44)
[2021-02-08 16:58] VITALS: BP 154/81
[2021-02-08] MEDS: ATORVASTATIN 20 MG TAB PO SCH (21:05)
[2021-02-08 22:00] VITALS: BP 119/78
[2021-02-08] MEDS: AMPICILLIN SOD 2GM INJ 2 GM in SODIUM CHL 0.9% 100 ML IV SCH ×2 (22:54→22:55)
[2021-02-09 05:00] VITALS: BP 137/74
[2021-02-09] MEDS: AMPICILLIN SOD 2GM INJ 2 GM in SODIUM CHL 0.9% 100 ML IV SCH ×2 (05:02→12:58)
[2021-02-09] MEDS: LEVOTHYROXINE SODIUM 50 MCG TAB PO SCH (05:43)
[2021-02-09 06:01] LABS: BUN/Creatinine Ratio 15.4; Calcium 8.8 mg/dL (8.5-10.1); Magnesium 1.6 mg/dL (1.6-2.6); Potassium 3.1 mmol/L (3.5-5.1)
[2021-02-09] MEDS ORDERED: POTASSIUM CHL 20 Meq TABLET PO ONE (08:45)
[2021-02-09] MEDS ORDERED: MAGNESIUM OXIDE 400 MG TAB PO ONE (08:45)
[2021-02-09 09:00] VITALS: BP 112/58
[2021-02-09] MEDS: PANTOPRAZOLE 40 MG TAB PO SCH (10:49)
[2021-02-09] MEDS: METOPROLOL SUCCINATE XL 50 MG TAB PO SCH (10:50)
[2021-02-09 13:00] VITALS: BP 125/70
== END 2021-02-09 18:56 | disposition home or self-care (01) | DRG 690 ==
LOC: WEST WING 15:59 → TELE-WESTW 19:37
PROVIDERS: ADMIT Internal Medicine; ATTEND Internal Medicine
PROC: 05HA33Z Insertion of Infusion Device into Left Brachial Vein, Percutaneous Approach (ICD-10-PCS; principal; 2021-02-08)
PROC: B54NZZA Ultrasonography of Left Upper Extremity Veins, Guidance (ICD-10-PCS; 2021-02-08)
DX: N39.0 Urinary tract infection, site not specified (principal); E87.6 Hypokalemia; I10 Essential (primary) hypertension; E03.9 Hypothyroidism, unspecified; B95.2 Enterococcus as the cause of diseases classified elsewhere; Z85.118 Personal history of other malignant neoplasm of bronchus and lung; Z79.899 Other long term (current) drug therapy
CPT/HCPCS: 36415; 71260; 74177; 80048; 80053; 81001; 82306; 82378; 83735; 84100; 84443; 85025; 86300; 86301; 86304; 87081; 87086; 93971; G0378

== ENCOUNTER 2021-02-25 20:52 | Emergency (ER) | payer OTHER, MEDICAID ==
[~2021-02-25] VITALS: Ht 154.9 cm; Wt 72.6 kg
[2021-02-26] MEDS ORDERED: LIDOCAINE 1% HCL (LOCAL ANESTH.) INJ 20ML MDV ID ONE (02:30)
[2021-02-26 03:20] VITALS: BP 153/90
== END 2021-02-26 03:22 | disposition home or self-care (01) ==
LOC: EDBD 20:52 → ER 20:55
DX: S01.01XA Laceration without foreign body of scalp, initial encounter (principal); J44.9 Chronic obstructive pulmonary disease, unspecified; K21.9 Gastro-esophageal reflux disease without esophagitis; I10 Essential (primary) hypertension; E78.5 Hyperlipidemia, unspecified; E03.9 Hypothyroidism, unspecified; Z86.73 Personal history of transient ischemic attack (TIA), and cerebral infarction without residual deficits; Z90.89 Acquired absence of other organs; Z79.899 Other long term (current) drug therapy; Z88.8 Allergy status to other drugs, medicaments and biological substances; W01.198A Fall on same level from slipping, tripping and stumbling with subsequent striking against other object, initial encounter; Y93.89 Activity, other specified; Y92.89 Other specified places as the place of occurrence of the external cause; Y99.8 Other external cause status
CPT/HCPCS: 12002; 70450; 72125; 72192; 99285; J2001

== ENCOUNTER → 2021-11-22 | Emergency (ER) | payer OTHER, MEDICAID ==
[~2021-11-22] VITALS: Ht 170.2 cm; Wt 77.1 kg
[2021-11-22 00:51] VITALS: BP 163/98
== END | disposition left against medical advice (07) ==
LOC: ER 00:51
DX: R06.02 Shortness of breath (principal); I10 Essential (primary) hypertension
CPT/HCPCS: 93005

== ENCOUNTER → 2022-07-22 | Outpatient (CLI) | payer OTHER, MEDICAID ==
[2022-07-22 10:42] LABS: Potassium 4.1 mmol/L (3.5-5.1)
[2022-07-22 10:45] LABS: BUN/Creatinine Ratio 20.5
== END | disposition home or self-care (01) ==
LOC: LAB 09:07
PROVIDERS: ATTEND Internal Medicine
DX: I10 Essential (primary) hypertension (principal); E03.9 Hypothyroidism, unspecified; E78.5 Hyperlipidemia, unspecified; Z79.899 Other long term (current) drug therapy
CPT/HCPCS: 36415; 80048; 80061; 82306; 83036; 84439; 84443

== ENCOUNTER 2022-08-10 08:02 | Emergency (ER) | payer OTHER, MEDICAID ==
[~2022-08-10] VITALS: Ht 170.2 cm; Wt 91.0 kg
[2022-08-10 09:33] VITALS: BP 150/86
[2022-08-10] MEDS ORDERED: ACET-1080 PO (09:59)
[2022-08-10] MEDS ORDERED: METH500T22 PO (09:59)
[2022-08-10] MEDS ORDERED: ACETAMINOPHEN 500 MG TAB PO ONE (10:00)
== END 2022-08-10 10:23 | disposition home or self-care (01) ==
LOC: ER 08:02
DX: S76.011A Strain of muscle, fascia and tendon of right hip, initial encounter (principal); J44.9 Chronic obstructive pulmonary disease, unspecified; K21.9 Gastro-esophageal reflux disease without esophagitis; E78.5 Hyperlipidemia, unspecified; I10 Essential (primary) hypertension; Z88.6 Allergy status to analgesic agent; Z86.73 Personal history of transient ischemic attack (TIA), and cerebral infarction without residual deficits; X58.XXXA Exposure to other specified factors, initial encounter; Y93.89 Activity, other specified; Y92.89 Other specified places as the place of occurrence of the external cause; Y99.8 Other external cause status
CPT/HCPCS: 73502; 93005; 93971

== ENCOUNTER → 2022-08-22 | Outpatient (CLI) | payer OTHER, MEDICAID ==
[~2022-08-22] MED LIST changes: +ACET-1080 PO; +METH500T22 PO
== END | disposition home or self-care (01) ==
LOC: LAB 09:09
PROVIDERS: ATTEND Internal Medicine
DX: I10 Essential (primary) hypertension (principal); E03.9 Hypothyroidism, unspecified; E78.5 Hyperlipidemia, unspecified; E55.9 Vitamin D deficiency, unspecified
CPT/HCPCS: 82274

== ENCOUNTER → 2023-04-08 | Outpatient (CLI) | payer OTHER, MEDICAID ==
[~2023-04-08] MED LIST changes: +METH-1181 PO; -METH500T22 PO; +TRAM50TA2 PO
== END | disposition home or self-care (01) ==
LOC: XYW 07:56
PROVIDERS: ATTEND Internal Medicine
DX: I51.7 Cardiomegaly (principal); I49.9 Cardiac arrhythmia, unspecified
CPT/HCPCS: 93306

== ENCOUNTER → 2023-05-02 | Day surgery (SDC) | payer OTHER, MEDICAID ==
[2023-04-30 11:03] LABS: Basophils # (auto) 0.1 10 ^3/uL (0-0.2); Basophils % (auto) 0.9 % (0.0-2.0); Eosinophils # (auto) 0.2 10 ^3/uL (0-0.8); Eosinophils % (auto) 3.2 % (0.0-7.0); Hematocrit 45.7 % (36.0-46.0); Lymphocytes # (auto) 2.2 10 ^3/uL (0.4-5.4); Lymphocytes % (auto) 31.4 % (10.0-50.0); Mean Corpuscular Hemoglobin 28.8 pg (28.0-32.0); Mean Corpuscular Hgb Conc. 32.9 g/dL (32.0-36.0); Mean Corpuscular Volume 87.7 fL (80.0-100.0); Monocytes # (auto) 0.5 10 ^3/uL (0-1.3); Monocytes % (auto) 7.7 % (0.0-12.0); Neutrophils % (auto) 56.8 % (37.0-80.0); Nucleated Red Blood Cells % 0.1 %; Red Blood Cells 5.22 10^6/uL (4.0-5.20); Red Cell Distribution Width 14.9 % (11.8-14.3); White Blood Cell 7.1 10^3/uL (4.4-10.8)
[2023-04-30 11:22] LABS: INR 0.98 (0.9-1.15); Partial Thromboplastin Time 25.8 SEC (24.5-34.5); Prothrombin Time 10.3 sec (9.3-11.8)
[2023-04-30 12:15] LABS: Alanine Aminotransferase 19 U/L (7-40); Albumin 4.7 g/dL (3.2-4.8); Alkaline Phosphatase 128 U/L (46-116); Anion Gap 6 (5-15); Aspartate Aminotransferase 18 U/L (13-40); BUN/Creatinine Ratio 11.5 (10.0-20.0); Blood Urea Nitrogen 9 mg/dL (9-23); Calcium 9.3 mg/dL (8.7-10.4); Carbon Dioxide 27 mmol/L (20-30); Chloride 107 mmol/L (98-107); Glucose 103 mg/dL (74-106); Potassium 4.4 mmol/L (3.5-5.1); Sodium 140 mmol/L (136-145)
[2023-04-30 12:16] LABS: Bilirubin, Total 0.6 mg/dL (0.2-1.0)
[~2023-05-02] VITALS: Ht 170.2 cm; Wt 85.3 kg
[~2023-05-02] MED LIST changes: +AML5T PO; +ASPI81CH59 PO; -ATOR20TA50 PO; +ATOR40TA52 PO; +BENA-30 PO; -IRBE300T79 PO; -METO-289 PO; +SODIUM CHLORIDE LOCK 10 ML ONE
[2023-05-02 15:28] VITALS: PULSE 90; RESP 14; O2SAT 99
[2023-05-02] MEDS: MIDAZOLAM HCL 5 MG/ML-1ML VIAL ONE ×2 (15:47→15:53)
[2023-05-02] MEDS: fentaNYL CITRATE 100 MCG/2 ML VL ONE ×3 (15:48→15:56)
[2023-05-02] MEDS: diphenhdrAMINE HCL 50 MG/1 ML VL ONE ×2 (15:49→15:51)
[2023-05-02 16:09] VITALS: PULSE 83; RESP 16; TEMP 98.1
[2023-05-02 16:15] VITALS: PULSE 78; RESP 15
[2023-05-02 16:20] VITALS: PULSE 79; RESP 15
[2023-05-02 16:25] VITALS: BP 122/70; PULSE 72; PULSE 78; RESP 16; O2SAT 96
== END | disposition home or self-care (01) ==
LOC: GI 13:05
PROVIDERS: ATTEND Internal Medicine Gastroenterology
DX: R19.5 Other fecal abnormalities (principal); K63.89 Other specified diseases of intestine; K62.1 Rectal polyp; K64.8 Other hemorrhoids; J44.9 Chronic obstructive pulmonary disease, unspecified; I49.9 Cardiac arrhythmia, unspecified; I10 Essential (primary) hypertension; E03.9 Hypothyroidism, unspecified; E78.5 Hyperlipidemia, unspecified; F41.9 Anxiety disorder, unspecified; Z88.8 Allergy status to other drugs, medicaments and biological substances; Z80.9 Family history of malignant neoplasm, unspecified; Z85.118 Personal history of other malignant neoplasm of bronchus and lung; Z87.891 Personal history of nicotine dependence; Z79.82 Long term (current) use of aspirin; Z98.890 Other specified postprocedural states; Z79.899 Other long term (current) drug therapy; Z79.890 Hormone replacement therapy
CPT/HCPCS: 36415; 45380; 80053; 85025; 85610; 85730; 88305; J1200; J2250; J3010; J7030; 99152

== ENCOUNTER → 2023-09-04 | Outpatient (CLI) | payer OTHER, MEDICAID ==
[~2023-09-04] MED LIST changes: +LEVO25TA2 PO; -LEVO25TA49 PO; -SODIUM CHLORIDE LOCK 10 ML ONE
[2023-09-04 09:22] LABS: Urine Bacteria None Seen /hpf (None Seen)
[2023-09-04 09:37] LABS: Basophils # (auto) 0 10 ^3/uL (0-0.2); Basophils % (auto) 0.1 % (0.0-2.0); Eosinophils # (auto) 0 10 ^3/uL (0-0.8); Hematocrit 44.2 % (36.0-46.0); Hemoglobin 14.9 g/dL (12.2-16.2); Lymphocytes # (auto) 1.2 10 ^3/uL (0.4-5.4); Lymphocytes % (auto) 9.7 % (10.0-50.0); Mean Corpuscular Hemoglobin 29.2 pg (28.0-32.0); Mean Corpuscular Hgb Conc. 33.7 g/dL (32.0-36.0); Mean Corpuscular Volume 86.8 fL (80.0-100.0); Monocytes # (auto) 0.4 10 ^3/uL (0-1.3); Monocytes % (auto) 2.8 % (0.0-12.0); Neutrophils % (auto) 87.4 % (37.0-80.0); Red Blood Cells 5.09 10^6/uL (4.0-5.20); Red Cell Distribution Width 14.4 % (11.8-14.3); White Blood Cell 12.6 10^3/uL (4.4-10.8)
[2023-09-04 10:29] LABS: Alanine Aminotransferase 27 U/L (7-40); Albumin 4.7 g/dL (3.2-4.8); Alkaline Phosphatase 102 U/L (46-116); Anion Gap 11 (5-15); Aspartate Aminotransferase 23 U/L (13-40); BUN/Creatinine Ratio 17.6 (10.0-20.0); Bilirubin, Total 0.7 mg/dL (0.2-1.0); Blood Urea Nitrogen 13 mg/dL (9-23); Carbon Dioxide 23 mmol/L (20-30); Chloride 107 mmol/L (98-107); Glucose 132 mg/dL (74-106); Potassium 3.9 mmol/L (3.5-5.1); Sodium 141 mmol/L (136-145); Total Protein 6.8 g/dL (5.7-8.2)
[2023-09-04 15:12] LABS: Urine Amorphous Crystal FEW /hpf (None Seen); Urine Blood Negative /uL (Negative); Urine Clarity Turbid (Clear); Urine Color Yellow (Yellow); Urine Mucus FEW (None Seen); Urine Protein, UAD 1+ (Negative); Urine Specific Gravity 1.024 (1.001-1.035); Urine Urobilinogen Normal (Negative); Urine WBC 2 /hpf (0 - 5); Urine pH 5.5 (5.0-9.0)
== END | disposition home or self-care (01) ==
LOC: LAB 09:11
PROVIDERS: ATTEND Internal Medicine
DX: I10 Essential (primary) hypertension (principal); E03.9 Hypothyroidism, unspecified; Z79.899 Other long term (current) drug therapy
CPT/HCPCS: 36415; 80053; 81001; 82306; 85025

== ENCOUNTER 2023-09-19 19:30 | Emergency (ER) | payer OTHER, MEDICAID | END 2023-09-19 21:17 | disposition left against medical advice (07) | LOC: ER 19:30 | DX: R68.89 Other general symptoms and signs (principal); Z53.21 Procedure and treatment not carried out due to patient leaving prior to being seen by health care provider ==

== ENCOUNTER 2023-09-21 08:48 | Inpatient (IN) | payer OTHER, MEDICAID ==
[~2023-09-21] VITALS: Ht 170.2 cm; Wt 88.9 kg
[2023-09-21 09:50] LABS: Basophils # (auto) 0 10 ^3/uL (0-0.2); Basophils % (auto) 0.5 % (0.0-2.0); Eosinophils # (auto) 0.2 10 ^3/uL (0-0.8); Eosinophils % (auto) 4.9 % (0.0-7.0); Hematocrit 44.4 % (36.0-46.0); Hemoglobin 14.9 g/dL (12.2-16.2); Lymphocytes # (auto) 1.9 10 ^3/uL (0.4-5.4); Lymphocytes % (auto) 37.4 % (10.0-50.0); Mean Corpuscular Hemoglobin 29.3 pg (28.0-32.0); Mean Corpuscular Hgb Conc. 33.6 g/dL (32.0-36.0); Mean Corpuscular Volume 87.3 fL (80.0-100.0); Monocytes # (auto) 0.5 10 ^3/uL (0-1.3); Monocytes % (auto) 9.9 % (0.0-12.0); Neutrophils # (auto) 2.3 10 ^3/uL (1.6-8.6); Neutrophils % (auto) 47.3 % (37.0-80.0); Nucleated Red Blood Cells % 0.1 %; Red Blood Cells 5.09 10^6/uL (4.0-5.20)
[2023-09-21 10:01] LABS: Alanine Aminotransferase 27 U/L (7-40); Albumin 4.5 g/dL (3.2-4.8); Alkaline Phosphatase 105 U/L (46-116); Anion Gap 8 (5-15); Aspartate Aminotransferase 29 U/L (13-40); BUN/Creatinine Ratio 11.7 (10.0-20.0); Bilirubin, Total 1.2 mg/dL (0.2-1.0); Blood Urea Nitrogen 9 mg/dL (9-23); Calcium 9.4 mg/dL (8.5-10.1); Carbon Dioxide 25 mmol/L (20-30); Chloride 108 mmol/L (98-107); Glucose 105 mg/dL (74-106); Potassium 3.8 mmol/L (3.5-5.1); Sodium 141 mmol/L (136-145); Total Protein 6.9 g/dL (5.7-8.2)
[2023-09-21] MEDS ORDERED: HYDROcodone-ACET 5/325MG TAB PO PRN (12:15)
[2023-09-21] MEDS ORDERED: NITROGLYCERIN 0.4 MG SL TAB SL PRN (12:15)
[2023-09-21] MEDS ORDERED: ACETAMINOPHEN 325 MG TAB PO PRN (12:15)
[2023-09-21] MEDS ORDERED: MORPHINE SULFATE INJ 2 MG/ml SYRG IV PRN ×2 (12:15)
[2023-09-21] MEDS ORDERED: ONDANSETRON HCL 4 MG/2 ML VIAL IV PRN (12:15)
[2023-09-21] MEDS ORDERED: DOCUSATE SOD 100 MG CAP PO PRN (12:15)
[2023-09-21 13:26] VITALS: BP 150/62; PULSE 100; RESP 16; TEMP 98.3; O2SAT 96
[2023-09-21] MEDS ORDERED: PANT40T PO (13:59)
[2023-09-21] MEDS ORDERED: BENZ100C97 PO (13:59)
[2023-09-21] MEDS ORDERED: AMLO1TAB22 PO (13:59)
[2023-09-21] MEDS ORDERED: BENA-36 PO (13:59)
[2023-09-21] MEDS ORDERED: DOXY100C4 PO (13:59)
[2023-09-21] MEDS ORDERED: POTA-211 PO (13:59)
[2023-09-21] MEDS ORDERED: LEVO50TA7 PO (13:59)
[2023-09-21] MEDS ORDERED: Benzonatate 100 MG CAPSULES PO PRN (14:00)
[2023-09-21] MEDS: ALBUTEROL SULF 2.5 MG/0.5ML(0.5%) NEB SOLN NEB SCH (19:27)
[2023-09-21 19:28] VITALS: PULSE 98; RESP 18; O2SAT 96
[2023-09-21] MEDS: IPRATROPIUM BROM 0.5 MG/2.5ML INH SOL NEB SCH (19:28)
[2023-09-21 19:38] VITALS: PULSE 97; RESP 18; O2SAT 100
[2023-09-21 22:29] VITALS: PULSE 83; RESP 18; O2SAT 97
[2023-09-21] MEDS: ATORVASTATIN 20 MG TAB PO SCH (23:09)
[2023-09-21] MEDS: POTASSIUM CHL 10 Meq TABLET PO SCH (23:09)
[2023-09-22] VITALS (20 sets, daily range): BP systolic 106–144; BP diastolic 54–80; PULSE 53–100; RESP 16–20; TEMP 97.4–98.8; O2SAT 94–100
[2023-09-22 05:02] LABS: Basophils # (auto) 0 10 ^3/uL (0-0.2); Basophils % (auto) 0.7 % (0.0-2.0); Eosinophils # (auto) 0.3 10 ^3/uL (0-0.8); Eosinophils % (auto) 5.5 % (0.0-7.0); Hematocrit 41.3 % (36.0-46.0); Hemoglobin 13.5 g/dL (12.2-16.2); Lymphocytes # (auto) 2.2 10 ^3/uL (0.4-5.4); Lymphocytes % (auto) 35.6 % (10.0-50.0); Mean Corpuscular Hemoglobin 28.8 pg (28.0-32.0); Mean Corpuscular Hgb Conc. 32.7 g/dL (32.0-36.0); Mean Corpuscular Volume 88.2 fL (80.0-100.0); Monocytes # (auto) 0.6 10 ^3/uL (0-1.3); Monocytes % (auto) 10.7 % (0.0-12.0); Neutrophils # (auto) 2.9 10 ^3/uL (1.6-8.6); Neutrophils % (auto) 47.5 % (37.0-80.0); Nucleated Red Blood Cells % 0.3 %; Red Blood Cells 4.68 10^6/uL (4.0-5.20); Red Cell Distribution Width 14.8 % (11.8-14.3); White Blood Cell 6.1 10^3/uL (4.4-10.8)
[2023-09-22 05:15] LABS: Alanine Aminotransferase 25 U/L (7-40); Albumin 3.7 g/dL (3.2-4.8); Alkaline Phosphatase 86 U/L (46-116); Anion Gap 8 (5-15); Aspartate Aminotransferase 23 U/L (13-40); BUN/Creatinine Ratio 11.5 (10.0-20.0); Bilirubin, Total 1.1 mg/dL (0.2-1.0); Blood Urea Nitrogen 7 mg/dL (9-23); Calcium 9.1 mg/dL (8.7-10.4); Carbon Dioxide 22 mmol/L (20-30); Chloride 110 mmol/L (98-107); Glucose 95 mg/dL (74-106); Potassium 3.6 mmol/L (3.5-5.1); Sodium 140 mmol/L (136-145); Total Protein 5.8 g/dL (5.7-8.2)
[2023-09-22] MEDS: LEVOTHYROXINE SODIUM 50 MCG TAB PO SCH (06:48)
[2023-09-22] MEDS: AZITHROMYCIN 500MG/ 250ML 250 ML IV SCH (09:54)
[2023-09-22] MEDS: BENAZEPRIL HCL 10 MG TAB PO SCH (09:55)
[2023-09-22] MEDS: cefTRIAXone 1GM/50ML D5W 50 ML IV SCH (09:55)
[2023-09-22] MEDS: PANTOPRAZOLE 40 MG TAB PO SCH (09:55)
[2023-09-22] MEDS: amLODIPine BESYLATE 5 MG TAB PO SCH ×2 (09:56→21:36)
[2023-09-22 10:51] LABS: Urine Bacteria None Seen /hpf (None Seen)
[2023-09-22 11:17] LABS: Amphetamine Screen, Urine Neg (NEGATIVE); Barbiturate Scree,Urine Neg (NEGATIVE)
[2023-09-22 11:18] LABS: Benzodiazephine Screen, Urine Neg (NEGATIVE); Cannabinoid Screen, Urine Neg (NEGATIVE); Cocaine Screen, Urine Neg (NEGATIVE); Opiate Scree,Urine Neg (NEGATIVE); Phencyclidine Screen, Urine Neg (NEGATIVE)
[2023-09-22 12:39] LABS: Urine Blood Negative /uL (Negative); Urine Clarity Turbid (Clear); Urine Color Yellow (Yellow); Urine Hyaline Cast FEW /lpf (0 - 2); Urine Mucus FEW (None Seen); Urine Protein, UAD TRACE (Negative); Urine Specific Gravity 1.022 (1.001-1.035); Urine Urobilinogen Normal (Negative); Urine WBC 2 /hpf (0 - 5)
[2023-09-22 13:23] LABS: Rapid Influenza A Negative (Negative); Rapid Influenza B Negative (Negative)
[2023-09-22 13:24] LABS: COVID19 ANTIGEN SOFIA FIA NEGATIVE (NEGATIVE)
[2023-09-22 14:59] LABS: LDL Cholesterol 75 mg/dL (< 100); Triglycerides 129 mg/dL (< 150)
[2023-09-22 15:01] LABS: Cholesterol 141 mg/dL (< 200); HDL Cholesterol 43 mg/dL (40-59)
[2023-09-22] MEDS: methylPREDNISolone SOD SUCC 40 MG/ML VL IV SCH (21:35)
[2023-09-23] VITALS (17 sets, daily range): BP systolic 103–140; BP diastolic 50–74; PULSE 46–126; RESP 15–20; TEMP 97.6–98.7; O2SAT 93–100
[2023-09-23 08:18] LABS: Basophils # (auto) 0 10 ^3/uL (0-0.2); Basophils % (auto) 0.2 % (0.0-2.0); Eosinophils # (auto) 0 10 ^3/uL (0-0.8); Eosinophils % (auto) 0.1 % (0.0-7.0); Hematocrit 44.7 % (36.0-46.0); Hemoglobin 14.9 g/dL (12.2-16.2); Lymphocytes % (auto) 15.6 % (10.0-50.0); Mean Corpuscular Hemoglobin 29.1 pg (28.0-32.0); Mean Corpuscular Hgb Conc. 33.4 g/dL (32.0-36.0); Mean Corpuscular Volume 87.3 fL (80.0-100.0); Monocytes # (auto) 0.1 10 ^3/uL (0-1.3); Monocytes % (auto) 1.2 % (0.0-12.0); Neutrophils # (auto) 5.3 10 ^3/uL (1.6-8.6); Neutrophils % (auto) 82.9 % (37.0-80.0); Red Blood Cells 5.12 10^6/uL (4.0-5.20); Red Cell Distribution Width 15.1 % (11.8-14.3); White Blood Cell 6.4 10^3/uL (4.4-10.8)
[2023-09-23 08:45] LABS: Alanine Aminotransferase 26 U/L (7-40); Albumin 4.6 g/dL (3.2-4.8); Alkaline Phosphatase 106 U/L (46-116); Anion Gap 12 (5-15); Aspartate Aminotransferase 24 U/L (13-40); BUN/Creatinine Ratio 13.6 (10.0-20.0); Blood Urea Nitrogen 12 mg/dL (9-23); Calcium 9.9 mg/dL (8.5-10.1); Carbon Dioxide 21 mmol/L (20-30); Chloride 107 mmol/L (98-107); Glucose 192 mg/dL (74-106); Potassium 4.2 mmol/L (3.5-5.1); Sodium 140 mmol/L (136-145)
[2023-09-23 08:46] LABS: Bilirubin, Total 0.8 mg/dL (0.2-1.0); Total Protein 7.1 g/dL (5.7-8.2)
[2023-09-23] MEDS: AZITHROMYCIN 250 MG TAB PO SCH (12:15)
[2023-09-23] MEDS: ASPirin 81 mg TAB PO SCH (12:16)
[2023-09-23] MEDS: METOPROLOL TARTRATE 25 MG TAB PO ONE (15:43)
[2023-09-23] MEDS: MAGNESIUM OXIDE 400 MG TAB PO ONE (17:12)
[2023-09-23] MEDS ORDERED: METOPROLOL TARTRATE 25 MG TAB PO SCH (22:00)
[2023-09-24] VITALS (11 sets, daily range): BP systolic 100–128; BP diastolic 39–59; PULSE 67–110; RESP 15–20; TEMP 98.1–98.6; O2SAT 94–100
[2023-09-24 06:56] LABS: Chloride 108 mmol/L (98-107); Potassium 4.6 mmol/L (3.5-5.1); Sodium 138 mmol/L (136-145)
[2023-09-24 06:57] LABS: Anion Gap 8 (5-15); Calcium 9.6 mg/dL (8.7-10.4); Carbon Dioxide 22 mmol/L (20-30)
[2023-09-24 07:02] LABS: BUN/Creatinine Ratio 21.8 (10.0-20.0); Blood Urea Nitrogen 17 mg/dL (9-23); Glucose 151 mg/dL (74-106); Magnesium 1.8 mg/dL (1.6-2.6)
[2023-09-24 07:25] LABS: Basophils # (auto) 0 10 ^3/uL (0-0.2); Eosinophils # (auto) 0 10 ^3/uL (0-0.8); Hematocrit 40.3 % (36.0-46.0); Hemoglobin 13.3 g/dL (12.2-16.2); Lymphocytes # (auto) 1.1 10 ^3/uL (0.4-5.4); Lymphocytes % (auto) 7.5 % (10.0-50.0); Mean Corpuscular Hemoglobin 28.8 pg (28.0-32.0); Mean Corpuscular Hgb Conc. 32.9 g/dL (32.0-36.0); Mean Corpuscular Volume 87.6 fL (80.0-100.0); Monocytes # (auto) 0.3 10 ^3/uL (0-1.3); Monocytes % (auto) 1.8 % (0.0-12.0); Neutrophils # (auto) 13.4 10 ^3/uL (1.6-8.6); Neutrophils % (auto) 90.7 % (37.0-80.0); Nucleated Red Blood Cells % 0.1 %; Red Blood Cells 4.61 10^6/uL (4.0-5.20); Red Cell Distribution Width 14.8 % (11.8-14.3); White Blood Cell 14.8 10^3/uL (4.4-10.8)
[2023-09-24] MEDS ORDERED: METO25TA5 PO (08:53)
[2023-09-24] MEDS ORDERED: PRED20TA2 PO (08:53)
[2023-09-24] MEDS: METOPROLOL TARTRATE 25 MG TAB PO SCH (09:49)
== END 2023-09-24 13:30 | disposition home or self-care (01) | DRG 192 ==
LOC: ER 08:48 → TELE 12:07 → TELE-WESTW 22:25
PROVIDERS: ADMIT Internal Medicine; ATTEND Internal Medicine
DX: J44.1 Chronic obstructive pulmonary disease with (acute) exacerbation (principal); I10 Essential (primary) hypertension; E78.5 Hyperlipidemia, unspecified; Z20.822 Contact with and (suspected) exposure to COVID-19; I89.0 Lymphedema, not elsewhere classified; K21.9 Gastro-esophageal reflux disease without esophagitis; E03.9 Hypothyroidism, unspecified; I49.3 Ventricular premature depolarization; Z86.73 Personal history of transient ischemic attack (TIA), and cerebral infarction without residual deficits; Z88.8 Allergy status to other drugs, medicaments and biological substances; Z85.118 Personal history of other malignant neoplasm of bronchus and lung
CPT/HCPCS: 36415; 71045; 71250; 80048; 80053; 80061; 80307; 81001; 83735; 83880; 84439; 84443; 84484; 85025; 87070; 87077; 87086; 87205; 87426; 87804; 93005; 93971; 94640; G0378

== ENCOUNTER → 2024-01-29 | Outpatient (CLI) | payer OTHER, MEDICAID ==
[~2024-01-29] MED LIST changes: -ACET-1080 PO; -AML5T PO; +AMLO1TAB22 PO; -ASPI81CH59 PO; -BENA-30 PO; +BENA-36 PO; -CHOL20007 PO; -LEVO25TA2 PO; +LEVO50TA7 PO; -METH-1181 PO; +METO25TA5 PO; +PANT40T PO; -PANT40TA2 PO; +POTA-211 PO; +PRED20TA2 PO; -TRAM50TA2 PO
[2024-01-29 07:59] LABS: Basophils # (auto) 0.1 10 ^3/uL (0-0.2); Basophils % (auto) 1.2 % (0.0-2.0); Eosinophils # (auto) 0.6 10 ^3/uL (0-0.8); Eosinophils % (auto) 9.6 % (0.0-7.0); Hematocrit 42.6 % (36.0-46.0); Hemoglobin 14.6 g/dL (12.2-16.2); Lymphocytes # (auto) 1.9 10 ^3/uL (0.4-5.4); Lymphocytes % (auto) 28.5 % (10.0-50.0); Mean Corpuscular Hemoglobin 30.2 pg (28.0-32.0); Mean Corpuscular Hgb Conc. 34.2 g/dL (32.0-36.0); Mean Corpuscular Volume 88.4 fL (80.0-100.0); Monocytes # (auto) 0.6 10 ^3/uL (0-1.3); Monocytes % (auto) 9.5 % (0.0-12.0); Neutrophils # (auto) 3.4 10 ^3/uL (1.6-8.6); Neutrophils % (auto) 51.2 % (37.0-80.0); Nucleated Red Blood Cells % 0.1 %; Platelet Count (auto) 201 10^3/uL (140-450); Red Blood Cells 4.82 10^6/uL (4.0-5.20); Red Cell Distribution Width 13.7 % (11.8-14.3); White Blood Cell 6.6 10^3/uL (4.4-10.8)
[2024-01-29 09:00] LABS: Chloride 110 mmol/L (98-107); Potassium 4.1 mmol/L (3.5-5.1); Sodium 142 mmol/L (136-145)
[2024-01-29 09:01] LABS: Anion Gap 6 (5-15); Calcium 9.5 mg/dL (8.7-10.4); Carbon Dioxide 26 mmol/L (20-30)
[2024-01-29 09:07] LABS: BUN/Creatinine Ratio 13.9 (10.0-20.0); Blood Urea Nitrogen 11 mg/dL (9-23); Glucose 98 mg/dL (74-106)
== END | disposition home or self-care (01) ==
LOC: LAB 07:48
PROVIDERS: ATTEND Internal Medicine
DX: I10 Essential (primary) hypertension (principal); R06.02 Shortness of breath
CPT/HCPCS: 36415; 80048; 83880; 85025

== ENCOUNTER → 2024-02-24 | Outpatient (CLI) | payer OTHER, MEDICAID | END | disposition home or self-care (01) | LOC: XYW 12:51 | PROVIDERS: ATTEND Internal Medicine | DX: I51.89 Other ill-defined heart diseases (principal); R06.02 Shortness of breath; R06.09 Other forms of dyspnea | CPT/HCPCS: 93306 ==

== ENCOUNTER → 2024-04-20 | Outpatient (CLI) | payer OTHER, MEDICAID ==
[2024-04-20 10:07] LABS: Basophils # (auto) 0.1 10 ^3/uL (0-0.2); Basophils % (auto) 0.9 % (0.0-2.0); Eosinophils # (auto) 0.4 10 ^3/uL (0-0.8); Eosinophils % (auto) 5.6 % (0.0-7.0); Hemoglobin 15.7 g/dL (12.2-16.2); Lymphocytes # (auto) 1.6 10 ^3/uL (0.4-5.4); Lymphocytes % (auto) 24.9 % (10.0-50.0); Mean Corpuscular Hemoglobin 29.5 pg (28.0-32.0); Mean Corpuscular Hgb Conc. 33.5 g/dL (32.0-36.0); Mean Corpuscular Volume 88.2 fL (80.0-100.0); Monocytes # (auto) 0.5 10 ^3/uL (0-1.3); Monocytes % (auto) 6.9 % (0.0-12.0); Neutrophils # (auto) 4.1 10 ^3/uL (1.6-8.6); Neutrophils % (auto) 61.7 % (37.0-80.0); Nucleated Red Blood Cells % 0.2 %; Platelet Count (auto) 216 10^3/uL (140-450); Red Blood Cells 5.33 10^6/uL (4.0-5.20); Red Cell Distribution Width 14.9 % (11.8-14.3); White Blood Cell 6.6 10^3/uL (4.4-10.8)
[2024-04-20 11:11] LABS: Alanine Aminotransferase 20 U/L (7-40); Albumin 4.2 g/dL (3.2-4.8); Alkaline Phosphatase 117 U/L (46-116); Anion Gap 7 (5-15); Aspartate Aminotransferase 19 U/L (13-40); BUN/Creatinine Ratio 9.2 (10.0-20.0); Blood Urea Nitrogen 7 mg/dL (9-23); Carbon Dioxide 27 mmol/L (20-31); Chloride 109 mmol/L (98-107); Glucose 94 mg/dL (74-106); Potassium 4.4 mmol/L (3.5-5.1); Sodium 143 mmol/L (136-145)
[2024-04-20 11:12] LABS: Bilirubin, Total 0.8 mg/dL (0.2-1.0); Total Protein 6.3 g/dL (5.7-8.2)
== END | disposition home or self-care (01) ==
LOC: LAB 09:25
DX: C34.91 Malignant neoplasm of unspecified part of right bronchus or lung (principal)
CPT/HCPCS: 36415; 80053; 85025

== ENCOUNTER → 2024-07-05 | Outpatient (CLI) | payer MEDICAID ==
[2024-07-05 07:40] LABS: Basophils # (auto) 0.1 10 ^3/uL (0-0.2); Basophils % (auto) 0.9 % (0.0-2.0); Eosinophils # (auto) 0.4 10 ^3/uL (0-0.8); Eosinophils % (auto) 5.4 % (0.0-7.0); Hematocrit 47.2 % (36.0-46.0); Lymphocytes # (auto) 1.5 10 ^3/uL (0.4-5.4); Mean Corpuscular Hemoglobin 29.4 pg (28.0-32.0); Mean Corpuscular Hgb Conc. 33.9 g/dL (32.0-36.0); Mean Corpuscular Volume 86.6 fL (80.0-100.0); Monocytes # (auto) 0.5 10 ^3/uL (0-1.3); Monocytes % (auto) 7.5 % (0.0-12.0); Neutrophils # (auto) 4.3 10 ^3/uL (1.6-8.6); Neutrophils % (auto) 64.2 % (37.0-80.0); Platelet Count (auto) 223 10^3/uL (140-450); Red Blood Cells 5.45 10^6/uL (4.0-5.20); Red Cell Distribution Width 15.1 % (11.8-14.3); White Blood Cell 6.7 10^3/uL (4.4-10.8)
[2024-07-05 07:41] LABS: Alanine Aminotransferase 19 U/L (7-40); Albumin 4.5 g/dL (3.2-4.8); Anion Gap 8 (5-15); Aspartate Aminotransferase 17 U/L (13-40); BUN/Creatinine Ratio 12.4 (10.0-20.0); Blood Urea Nitrogen 11 mg/dL (9-23); Carbon Dioxide 29 mmol/L (20-31); Chloride 104 mmol/L (98-107); Cholesterol 195 mg/dL (< 200); HDL Cholesterol 57 mg/dL (40-59); Potassium 4.2 mmol/L (3.5-5.1); Sodium 141 mmol/L (136-145)
[2024-07-05 07:42] LABS: Alkaline Phosphatase 120 U/L (46-116); Bilirubin, Total 0.8 mg/dL (0.2-1.0); Glucose 128 mg/dL (74-106); LDL Cholesterol 120 mg/dL (< 100); Total Protein 6.5 g/dL (5.7-8.2); Triglycerides 156 mg/dL (< 150)
[2024-07-05 13:12] LABS: Urine Bacteria FEW /hpf (None Seen); Urine Blood Negative /uL (Negative); Urine Mucus FEW (None Seen); Urine Protein, UAD Negative (Negative); Urine Specific Gravity 1.017 (1.001-1.035); Urine Squamous Epithelial Cell MOD /hpf (<5); Urine Urobilinogen Normal (Negative); Urine WBC 13 /HPF (0-5)
[2024-07-05 13:13] LABS: Urine Clarity Hazy (Clear); Urine Color Yellow (Yellow)
== END | disposition home or self-care (01) ==
LOC: LAB 06:47
PROVIDERS: ATTEND Internal Medicine
DX: I10 Essential (primary) hypertension (principal)
CPT/HCPCS: 36415; 80053; 80061; 81001; 83036; 84443; 85025

== ENCOUNTER → 2024-07-19 | Outpatient (CLI) | payer MEDICAID ==
[2024-07-19 13:18] LABS: Anion Gap 8 (5-15); Carbon Dioxide 28 mmol/L (20-31); Chloride 105 mmol/L (98-107); Sodium 141 mmol/L (136-145)
[2024-07-19 13:20] LABS: Calcium 9.8 mg/dL (8.7-10.4)
[2024-07-19 13:24] LABS: BUN/Creatinine Ratio 12.8 (10.0-20.0); Blood Urea Nitrogen 11 mg/dL (9-23); Glucose 96 mg/dL (74-106)
== END | disposition home or self-care (01) ==
LOC: LAB 12:33
PROVIDERS: ATTEND Internal Medicine
DX: I10 Essential (primary) hypertension (principal)
CPT/HCPCS: 36415; 80048

== ENCOUNTER 2024-08-08 15:45 | Emergency (ER) | payer MEDICARE, MEDICAID ==
[~2024-08-08] VITALS: Ht 170.2 cm; Wt 94.8 kg
[2024-08-08 16:55] LABS: Basophils # (auto) 0.1 10 ^3/uL (0-0.2); Eosinophils # (auto) 0.4 10 ^3/uL (0-0.8); Eosinophils % (auto) 6.2 % (0.0-7.0); Hematocrit 45.5 % (36.0-46.0); Hemoglobin 15.3 g/dL (12.2-16.2); Lymphocytes # (auto) 1.6 10 ^3/uL (0.4-5.4); Mean Corpuscular Hemoglobin 29.3 pg (28.0-32.0); Mean Corpuscular Hgb Conc. 33.6 g/dL (32.0-36.0); Mean Corpuscular Volume 87.2 fL (80.0-100.0); Monocytes # (auto) 0.5 10 ^3/uL (0-1.3); Monocytes % (auto) 7.6 % (0.0-12.0); Neutrophils # (auto) 4.6 10 ^3/uL (1.6-8.6); Neutrophils % (auto) 63.2 % (37.0-80.0); Nucleated Red Blood Cells % 0.1 %; Platelet Count (auto) 223 10^3/uL (140-450); Red Blood Cells 5.22 10^6/uL (4.0-5.20); Red Cell Distribution Width 15.4 % (11.8-14.3); White Blood Cell 7.2 10^3/uL (4.4-10.8)
[2024-08-08] MEDS: ALBUTEROL SULF 2.5 MG/0.5ML(0.5%) NEB SOLN NEB ONE (17:00)
[2024-08-08 17:05] LABS: Sodium 144 mmol/L (136-145)
[2024-08-08] MEDS: ALBUTEROL SULF 2.5 MG/0.5ML(0.5%) NEB SOLN ONE (17:05)
[2024-08-08] MEDS: IPRATROPIUM BROM 0.5 MG/2.5ML INH SOL ONE (17:05)
[2024-08-08 17:06] LABS: Anion Gap 8 (5-15); Carbon Dioxide 27 mmol/L (20-31)
[2024-08-08 17:07] LABS: Calcium 10.1 mg/dL (8.7-10.4)
[2024-08-08 17:11] LABS: BUN/Creatinine Ratio 17.7 (10.0-20.0); Blood Urea Nitrogen 14 mg/dL (9-23)
[2024-08-08 17:49] LABS: Chloride 109 mmol/L (98-107); Glucose 113 mg/dL (74-106)
[2024-08-08 18:10] LABS: COVID19 ANTIGEN SOFIA FIA NEGATIVE (NEGATIVE)
[2024-08-08] MEDS: methylPREDNISolone SOD SUCC 125 MG/2 ML VL IV ONE (18:32)
[2024-08-08] MEDS: FUROSEMIDE 40 MG/4 ML VIAL IV ONE (18:32)
--- NOTE | 2024-08-08 18:34 | DVH ---
EXAM: CT CHEST WITHOUT CONTRAST History: PNA Comparison Study: CT CHEST WITHOUT CONTRAST on DOS: 09/22/23 TECHNIQUE: Multidetector CT of the chest was performed. Imaging was performed without IV contrast. Ax ial, coronal, and sagittal multiplanar reformats were obtained from the axial data set by the technol gustavo. Radiation Dose : CTDI vol 11.54 mGy, DLP 437.16 mGy*cm. Findings: Lungs: The lungs are clear. Pleura: Small right pleural effusion. Heart/Great vessels: No cardiomegaly or pericardial effusion. Moderate to severe coronary atheroscler osis. Mediastinum: Unremarkable Soft tissues/Bones: Mild multilevel degenerative changes of the thoracic spine. Cholelithiasis. The partially visualized upper abdomen is within normal limits. Impression: 1. Small right pleural effusion.
[2024-08-08 18:59] VITALS: PULSE 78; RESP 26; O2SAT 95; O2SAT 98
[2024-08-08 19:23] VITALS: BP 158/90; PULSE 90; RESP 12; TEMP 98.6; O2SAT 94
[2024-08-08 20:48] VITALS: PULSE 88
--- NOTE | 2024-08-08 20:48 | ED.PDOC ---
History of Present Illness HPI Comments This is a 79-year-old female who comes in with chief complaint of shortness for breath for the past two weeks. The patient denies any cough or fever. She ended up going to the urgent care and had an oxygen saturation of 95%. The patient has been somewhat dizzy with episodes of sweating. She denies any chest pain, nausea or vomiting. Upon arrival to the emergency department's, the patient does not seem to be in any significant distress. Chief Complaint: Shortness of Breath Time Seen by MD: 15:55 Primary Care Provider: j carlos Reviewed Notes: Nurses Notes, Medications, Allergies (Allergies to gemfibrozil) Allergies: Coded Allergies: Gemfibrozil (Verified Allergy, Unknown, diarrhea/wt loss, 11/27/20) Home Meds Active Scripts Prednisone (Prednisone) 20 Mg Tab, 40 MG PO DAILY for 5 Days, MG Prov:SAKSHI DELGADILLO RESIDENT 09/24/23 Metoprolol Tartrate (Metoprolol Tartrate) 25 Mg Tab, 1 TAB PO BID for 30 Days, #60 TAB 1 Refill Prov:SAKSHI DELGADILLO RESIDENT 09/24/23 Reported Medications Benazepril Hcl (Benazepril Hcl) 20 Mg Tab, 1 TAB PO DAILY 09/21/23 Potassium Chloride (Klor-Con 10) 10 Meq Tab, 1 TAB PO BID 09/21/23 Amlodipine Besylate (Amlodipine Besylate) 5 Mg Tab, 1 TAB PO DAILY 09/21/23 Levothyroxine Sodium (Levothyroxine Sodium) 50 Mcg Tab, 1 TAB PO DAILY 09/21/23 Pantoprazole Sodium Sesquihydr (Pantoprazole Sodium) 40 Mg Tab, 1 TAB PO DAILY 09/21/23 Atorvastatin Calcium (ATORVASTATIN CALCIUM) 40 Mg Tab, 40 MG PO DAILY, TAB 04/30/23 Information Source: Patient Mode of Arrival: Wheelchair Severity: Moderate Timing: Weeks Duration: Since onset Prehospital treatment: None Associated signs and symptoms Associated dizziness with sweating Past Medical History PAST MEDICAL HISTORY: Cancer (History of lung cancer), COPD, CVA, Gallstones, GERD, High Lipids, HTN, Thyroid, UTI'S Surgical History: Tonsillectomy Surgical History (Other): Lung surgery procedure PROTECTION ANALYST History: No Pertinent PROTECTION ANALYST History Family History Family History: Family hx of Cancer, Family hx of heart jordin Social History Smoker: Cigarettes Alcohol: Denies ETOH Use Drugs: Denies Drug Use Lives In: Home Physical Exam General Appearance: Moderate Distress HEENT: Normal ENT Inspection, Pharynx Normal, TMs Normal Neck: Full Range of Motion, Non-Tender, Normal, Normal Inspection Respiratory: Chest Non-Tender, Decreased Breath Sounds, No Accessory Muscle Use, Rales Cardiovascular: No Edema, No JVD, No Murmur, No Gallop, Normal Peripheral Pulses, Regular Rate/Rhythm Breast Exam: Deferred Gastrointestinal: No Organomegaly, Non Tender, No Pulsatile Mass, Normal Bowel Sounds, Soft Genitalia: Deferred Pelvic: Deferred Rectal: Deferred Extremities: No calf tenderness, Normal capillary refill, No pedal edema Musculoskeletal : Apperance: Normal Neurologic: Alert, director of radio services II-XII nml as Tested, No Motor Deficits, Normal Affect, Normal Mood, No Sensory Deficits Cerebellar Function: Normal Reflexes: Normal Skin: Dry, Normal Color, Warm Lymphatic: No Adenopathy Was a procedure done? Was a procedure done?: No EKG EKG : Pulse Rate (adult): 88 [place]: Normal Cardiac Rhythm: NSR Block: None ST: Nonsp Differential Dx Considerations may include: COPD, CHF, pneumonia, PE X-Ray, Labs, Meds, VS Vital Signs Date Time Temp Pulse Resp B/P (MAP) Pulse Ox O2 Delivery O2 Flow Rate FiO2 08/08/24 20:48 88 08/08/24 19:23 90 12 94 Room Air* 0 21 08/08/24 19:23 98.6 90 12 158/90 (112) 94 98.6 08/08/24 18:59 78 26 98 Room Air* 0 08/08/24 18:32 171/81 08/08/24 18:06 79 08/08/24 18:00 98.0 78 26 171/87 (115) 95 98.0 08/08/24 17:06 18 95 Room Air* 0 21 08/08/24 16:05 18 94 Room Air* 0 21 08/08/24 16:02 99.3 91 18 180/84 (116) 95 99.3 08/08/24 15:58 88 Lab Test 08/08/24 17:41 08/08/24 16:41 08/08/24 16:33 Range/Units Troponin I High Sensitivity 75 *H 5 </=34 ng/L SARS-CoV-2 Antigen (Rapid) Negative NEGATIVE White Blood Count 7.2 4.4-10.8 10^3/uL Red Blood Count 5.22 H 4.0-5.20 10^6/uL Hemoglobin 15.3 12.2-16.2 g/dL Hematocrit 45.5 36.0-46.0 % Mean Corpuscular Volume 87.2 80.0-100.0 fL Mean Corpuscular Hemoglobin 29.3 28.0-32.0 pg Mean Corpuscular Hemoglobin Concent 33.6 32.0-36.0 g/dL Red Cell Distribution Width 15.4 H 11.8-14.3 % Platelet Count 223 140-450 10^3/uL Mean Platelet Volume 8.4 6.9-10.8 fL Neutrophils (%) (Auto) 63.2 37.0-80.0 % Lymphocytes (%) (Auto) 22.0 10.0-50.0 % Monocytes (%) (Auto) 7.6 0.0-12.0 % Eosinophils (%) (Auto) 6.2 0.0-7.0 % Basophils (%) (Auto) 1.0 0.0-2.0 % Neutrophils # (Auto) 4.6 1.6-8.6 10 ^3/uL Lymphocytes # (Auto) 1.6 0.4-5.4 10 ^3/uL Monocytes # (Auto) 0.5 0-1.3 10 ^3/uL Eosinophils # (Auto) 0.4 0-0.8 10 ^3/uL Basophils # (Auto) 0.1 0-0.2 10 ^3/uL Nucleated Red Blood Cells 0.1 % Sodium Level 144 136-145 mmol/L Potassium Level 4.0 3.5-5.1 mmol/L Chloride Level 109 H 98-107 mmol/L Carbon Dioxide Level 27 20-31 mmol/L Anion Gap 8 5-15 Blood Urea Nitrogen 14 9-23 mg/dL Creatinine 0.79 0.550-1.02 mg/dL Glomerular Filtration Rate Calc 76 >90 mL/min BUN/Creatinine Ratio 17.7 10.0-20.0 Serum Glucose 113 H 74-106 mg/dL Calcium Level 10.1 8.7-10.4 mg/dL B-Type Natriuretic Peptide 67.61 0-100 pg/mL Current Medications Medications (Trade) Dose Ordered Sig/Jordan Route Start Time Stop Time Status Last Admin Methylprednisolone Sodium Succinate (Solu Medrol) 125 mg ONCE ONCE IV 08/08/24 17:00 08/08/24 18:04 DC 08/08/24 18:32 Furosemide (Lasix Injection) 40 mg ONCE ONCE IV 08/08/24 17:00 08/08/24 18:04 DC 08/08/24 18:32 The patient's CBC is within normal limits The chemistry panel is within normal limits. The BNP is within normal limits The patient was given Solu-Medrol 125 mg IV push The patient was also given furosemide 40 mg IV push The 1st troponin level came back elevated at 75 The COVID test is negative The chest x-ray shows a small pleural effusion Impression: 1. Small right pleural effusion. Patient was being admitted to the hospitalist at this time Images Reviewed?: Images reviewed and evaluated by me Time of 1ST Reevaluation: 20:47 Reevaluation 1ST: Unchanged Patient Education/Counseling: Diagnosis, Treatment, Prognosis Family Education/Counseling: No Family Present Departure 1 Departure Time of Disposition: 20:59 Impression: Primary Impression: COPD exacerbation Additional Impression: Elevated troponin Disposition: ADMITTED INPATIENT Admit to: [facility] Condition: Fair Critical Care Note Critical Care Time?: No Stability Stability form required: Yes Unstable for transfer: Telemetry monitoring (Telemetry monitoring required), ED Physician Assesment (Clinical assesment) Heart Score Heart Score: Heart Score Response (Comments) Value History Moderate Suspicious 1 EKG Repolarization Disturb 1 Age >65 2 Risk Factors >3 or Hx ASHD 2 Troponin 1-2 x's Normal limit 1 Total 7 GLO SOOD MD Aug 08, 2024 20:48
[2024-08-08] MEDS: IPRATROPIUM BROM 0.5 MG/2.5ML INH SOL NEB ONE (22:21)
--- NOTE | 2024-08-09 08:33 | ECG ---
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
== END 2024-08-08 20:46 | disposition left against medical advice (07) ==
LOC: ER 15:45
DX: J44.1 Chronic obstructive pulmonary disease with (acute) exacerbation (principal); R79.89 Other specified abnormal findings of blood chemistry; I10 Essential (primary) hypertension; K21.9 Gastro-esophageal reflux disease without esophagitis; E78.5 Hyperlipidemia, unspecified; E03.9 Hypothyroidism, unspecified; F17.210 Nicotine dependence, cigarettes, uncomplicated; Z86.73 Personal history of transient ischemic attack (TIA), and cerebral infarction without residual deficits; Z90.89 Acquired absence of other organs; Z85.118 Personal history of other malignant neoplasm of bronchus and lung; Z79.899 Other long term (current) drug therapy; Z79.890 Hormone replacement therapy; Z79.52 Long term (current) use of systemic steroids; Z88.8 Allergy status to other drugs, medicaments and biological substances; Z20.822 Contact with and (suspected) exposure to COVID-19
CPT/HCPCS: 36415; 71250; 80048; 83880; 84484; 85025; 87426; 93005; 94640; 96374; 96375; 99285; J1940; J2919

== ENCOUNTER → 2024-09-15 | Outpatient (CLI) | payer OTHER, MEDICAID ==
[2024-09-15 07:27] LABS: Basophils # (auto) 0.1 10 ^3/uL (0-0.2); Eosinophils # (auto) 0.4 10 ^3/uL (0-0.8); Eosinophils % (auto) 6.5 % (0.0-7.0); Hematocrit 45.1 % (36.0-46.0); Hemoglobin 15.4 g/dL (12.2-16.2); Lymphocytes # (auto) 1.4 10 ^3/uL (0.4-5.4); Lymphocytes % (auto) 22.8 % (10.0-50.0); Mean Corpuscular Hemoglobin 29.7 pg (28.0-32.0); Mean Corpuscular Hgb Conc. 34.1 g/dL (32.0-36.0); Mean Corpuscular Volume 87.2 fL (80.0-100.0); Monocytes # (auto) 0.5 10 ^3/uL (0-1.3); Monocytes % (auto) 8.2 % (0.0-12.0); Neutrophils # (auto) 3.8 10 ^3/uL (1.6-8.6); Neutrophils % (auto) 61.5 % (37.0-80.0); Nucleated Red Blood Cells % 0.1 %; Platelet Count (auto) 198 10^3/uL (140-450); Red Blood Cells 5.17 10^6/uL (4.0-5.20); White Blood Cell 6.2 10^3/uL (4.4-10.8)
[2024-09-15 07:43] LABS: Alanine Aminotransferase 16 U/L (7-40); Albumin 4.4 g/dL (3.2-4.8); Anion Gap 8 (5-15); Aspartate Aminotransferase 15 U/L (13-40); BUN/Creatinine Ratio 12.4 (10.0-20.0); Bilirubin, Total 0.7 mg/dL (0.2-1.0); Blood Urea Nitrogen 11 mg/dL (9-23); Carbon Dioxide 28 mmol/L (20-31); Cholesterol 165 mg/dL (< 200); HDL Cholesterol 53 mg/dL (40-59); LDL Cholesterol 84 mg/dL (< 100); Magnesium 1.6 mg/dL (1.6-2.6); Sodium 143 mmol/L (136-145); Total Protein 6.4 g/dL (5.7-8.2)
[2024-09-15 07:48] LABS: Alkaline Phosphatase 118 U/L (46-116); Chloride 107 mmol/L (98-107); Glucose 108 mg/dL (74-106); Triglycerides 171 mg/dL (< 150)
[2024-09-15 07:56] LABS: Free T4 (Free Thyroxine) 1.25 ng/dL (0.89-1.76)
[2024-09-15 07:57] LABS: Folate (Folic Acid) 10.52 ng/mL (>5.38)
[2024-09-16 10:26] LABS: Urine Bacteria FEW /hpf (None Seen); Urine Blood Negative /uL (Negative); Urine Clarity Turbid (Clear); Urine Color Yellow (Yellow); Urine Mucus FEW (None Seen); Urine Protein, UAD Negative (Negative); Urine Specific Gravity 1.019 (1.001-1.035); Urine Squamous Epithelial Cell MOD /hpf (<5); Urine Urobilinogen Normal (Negative); Urine WBC 13 /HPF (0-5)
== END | disposition home or self-care (01) ==
LOC: LAB 06:27
PROVIDERS: ATTEND Internal Medicine
DX: Z12.11 Encounter for screening for malignant neoplasm of colon (principal); I10 Essential (primary) hypertension; E55.9 Vitamin D deficiency, unspecified; J44.1 Chronic obstructive pulmonary disease with (acute) exacerbation; R73.09 Other abnormal glucose
CPT/HCPCS: 36415; 80053; 80061; 81001; 82270; 82306; 82607; 82746; 83036; 83735; 83880; 84439; 84443; 85025

== ENCOUNTER 2024-12-15 15:22 | Outpatient (CLI) | payer OTHER, MEDICAID ==
[2024-12-15 16:03] LABS: Alanine Aminotransferase 18 U/L (7-40); Albumin 4.7 g/dL (3.2-4.8); Anion Gap 11 (5-15); BUN/Creatinine Ratio 13.6 (10.0-20.0); Blood Urea Nitrogen 12 mg/dL (9-23); Calcium 9.6 mg/dL (8.7-10.4); Carbon Dioxide 26 mmol/L (20-31); Chloride 107 mmol/L (98-107); Potassium 3.6 mmol/L (3.5-5.1); Sodium 144 mmol/L (136-145); Total Protein 6.7 g/dL (5.7-8.2)
[2024-12-15 16:04] LABS: Bilirubin, Total 0.6 mg/dL (0.2-1.0)
[2024-12-15 16:07] LABS: Alkaline Phosphatase 118 U/L (46-116); Glucose 116 mg/dL (74-106)
== END 2024-12-15 17:00 | disposition home or self-care (01) ==
LOC: LAB 15:22
PROVIDERS: ATTEND Internal Medicine
DX: I10 Essential (primary) hypertension (principal)
CPT/HCPCS: 36415; 80053; 84439; 84443; 84484

== ENCOUNTER 2025-01-09 00:21 | Inpatient (IN) | payer OTHER, MEDICAID ==
[~2025-01-09] VITALS: Ht 170.2 cm; Wt 84.0 kg
[2025-01-09 01:08] LABS: Hematocrit 47.9 % (36.0-46.0); Hemoglobin 16.3 g/dL (12.2-16.2); Mean Corpuscular Hemoglobin 29.6 pg (28.0-32.0); Mean Corpuscular Volume 87.1 fL (80.0-100.0); Nucleated Red Blood Cells % 0.0 %
[2025-01-09 01:17] LABS: Chloride 105 mmol/L (98-107); Sodium 141 mmol/L (136-145)
[2025-01-09 01:18] LABS: Anion Gap 11 (5-15); Carbon Dioxide 25 mmol/L (20-31); Potassium 3.3 mmol/L (3.5-5.1)
[2025-01-09 01:19] LABS: Calcium 9.0 mg/dL (8.7-10.4)
[2025-01-09 01:24] LABS: BUN/Creatinine Ratio 10.8 (10.0-20.0)
[2025-01-09 01:25] LABS: Blood Urea Nitrogen 8 mg/dL (9-23); Glucose 111 mg/dL (74-106)
--- NOTE | 2025-01-09 01:59 | ED.PDOC ---
History of Present Illness HPI Comments This patient is a 79-year-old female who was brought to the ED via EMS today due to complaints of hypertension concerns that in turn or causing dizziness events. Patient states that she took her blood pressure reading at home and it was in the 190s. EMS states that arrival, patient maintained a high blood pressure. At time of arrival to our facility, blood pressure was 185/125. Patient does have a history of hypertension and states that she usually takes her medication as directed. Patient denies any fever nausea or vomiting. Patient does confirmed dizziness. Chief Complaint: Dizziness Time Seen by MD: 00:26 Primary Care Provider: j carlos Reviewed Notes: Nurses Notes, [place] Notes Allergies: Coded Allergies: Gemfibrozil (Verified Allergy, Unknown, diarrhea/wt loss, 11/27/20) Home Meds Active Scripts Prednisone (Prednisone) 20 Mg Tab, 40 MG PO DAILY for 5 Days, MG Prov:SAKSHI DELGADILLO RESIDENT 09/24/23 Metoprolol Tartrate (Metoprolol Tartrate) 25 Mg Tab, 1 TAB PO BID for 30 Days, #60 TAB 1 Refill Prov:SAKSHI DELGADILLO RESIDENT 09/24/23 Reported Medications Benazepril Hcl (Benazepril Hcl) 20 Mg Tab, 1 TAB PO DAILY 09/21/23 Potassium Chloride (Klor-Con 10) 10 Meq Tab, 1 TAB PO BID 09/21/23 Amlodipine Besylate (Amlodipine Besylate) 5 Mg Tab, 1 TAB PO DAILY 09/21/23 Levothyroxine Sodium (Levothyroxine Sodium) 50 Mcg Tab, 1 TAB PO DAILY 09/21/23 Pantoprazole Sodium Sesquihydr (Pantoprazole Sodium) 40 Mg Tab, 1 TAB PO DAILY 09/21/23 Atorvastatin Calcium (ATORVASTATIN CALCIUM) 40 Mg Tab, 40 MG PO DAILY, TAB 04/30/23 Information Source: Patient, Emergency Med Personnel Mode of Arrival: EMS Severity: Moderate Timing: Hours Duration: Since onset Prehospital treatment: Cocktail Waitress Past Medical History PAST MEDICAL HISTORY: Cancer, COPD, CVA, Gallstones, GERD, High Lipids, HTN, Thyroid, UTI'S Surgical History: Tonsillectomy HEALTHCARE ASSOCIATE History: No Pertinent HEALTHCARE ASSOCIATE History Family History Family History: Family hx of Cancer, Family hx of heart jordin Social History Smoker: Cigarettes Alcohol: Denies ETOH Use Drugs: Denies Drug Use Lives In: Home Constitutional: denies: chills, diaphoresis, fatigue, fever, malaise, sweats, weakness, others EENTM: denies: blurred vision, double vision, ear bleeding, ear discharge, ear drainage, ear pain, ear ringing, eye pain, eye redness, hearing loss, mouth pain, mouth swelling, nasal discharge, nose bleeding, nose congestion, nose pain, photophobia, tearing, throat pain, throat swelling, voice changes, others Respiratory: denies: cough, hemoptysis, orthopnea, SOB at rest, shortness of breath, SOB with excertion, stridor, wheezing, others Cardiovascular: denies: chest pain, dizzy spells, diaphoresis, Dyspnea on exertion, edema, irregular heart beat, left arm pain, lightheadedness, palpitations, PND, syncope, others Gastrointestinal: denies: abdomen distended, abdominal pain, blood streaked bowels, constipated, diarrhea, dysphagia, difficulty swallowing, hematemesis, melena, nausea, poor appetite, poor fluid intake, rectal bleeding, rectal pain, vomiting, others Genitourinary: denies: abnormal vagina bleeding, burning, dyspareunia, dysuria, flank pain, frequency, hematuria, incontinence, pain, , vagina discharge, urgency, others Neurological: reports: dizziness; denies: fainting, headache, left sided numbness, left sided weakness, numbness, paresthesia, pre-existing deficit, right sided numbness, right sided weakness, seizure, speech problems, tingling, tremors, weakness, others Musculoskeletal: denies: back pain, gout, joint pain, joint swelling, muscle pain, muscle stiffness, neck pain, others Integumetry: denies: bruises, change in color, change in hair/nails, dryness, laceration, lesions, lumps, rash, wounds, others Allergic/Immunocompromised: denies: Difficulty Healing, Frequent Infections, Hives, Itching, others Hematologic/Lymphatic: denies: anemia, blood clots, easy bleeding, easy b ruising, swollen glands, others Endocrine: denies: excessive hunger, excessive sweating, excessive thirst, excessive urination, flushing, intolerance to cold, intolerance to heat, unexplained weight gain, unexplained weight loss, others Psychiatric: denies: anxiety, bipolar disorder, depression, hopeless, panic disorder, schizophrenia, sleepless, suicidal, others Physical Exam General Appearance: Moderate Distress (Patient moderate distress due to dizziness concerns. Patient appeared slow in response at time of evaluation.), Normal HEENT: Head (Unremarkable cranial evaluation. No signs of trauma. No skull depression or deformity.), Normal ENT Inspection, Pharynx Normal, TMs Normal Neck: Full Range of Motion, Non-Tender, Normal, Normal Inspection Respiratory: Chest Non-Tender, Lungs Clear, No Accessory Muscle Use, No Respiratory Distress, Normal Breath Sounds Cardiovascular: No Edema, No JVD, No Murmur, No Gallop, Normal Peripheral Pulses, Regular Rate/Rhythm Breast Exam: Deferred Gastrointestinal: No Organomegaly, Non Tender, No Pulsatile Mass, Normal Bowel Sounds, Soft Genitalia: Deferred Pelvic: Deferred Rectal: Deferred Extremities: Normal capillary refill, No pedal edema Neurologic: Alert Cerebellar Function: NOT DONE Reflexes: NOT DONE Skin: Dry, Normal Color, Warm Lymphatic: No Adenopathy Was a procedure done? Was a procedure done?: No Differential Dx Considerations may include: Hypertensive urgency, urinary tract infection, sepsis, electrolyte abnormality X-Ray, Labs, Meds, VS Vital Signs Date Time Temp Pulse Resp B/P (MAP) Pulse Ox O2 Delivery O2 Flow Rate FiO2 01/09/25 00:57 164/92 01/09/25 00:41 98.1 100 22 164/92 (116) 92 98.1 01/09/25 00:31 98.1 106 17 185/125 96 98.1 Lab Test 01/09/25 00:40 Range/Units White Blood Count 6.4 4.4-10.8 10^3/uL Red Blood Count 5.50 H 4.0-5.20 10^6/uL Hemoglobin 16.3 H 12.2-16.2 g/dL Hematocrit 47.9 H 36.0-46.0 % Mean Corpuscular Volume 87.1 80.0-100.0 fL Mean Corpuscular Hemoglobin 29.6 28.0-32.0 pg Mean Corpuscular Hemoglobin Concent 34.0 32.0-36.0 g/dL Red Cell Distribution Width 15.0 H 11.8-14.3 % Platelet Count 226 140-450 10^3/uL Mean Platelet Volume 8.5 6.9-10.8 fL Neutrophils (%) (Auto) 54.4 37.0-80.0 % Lymphocytes (%) (Auto) 31.5 10.0-50.0 % Monocytes (%) (Auto) 8.9 0.0-12.0 % Eosinophils (%) (Auto) 4.5 0.0-7.0 % Basophils (%) (Auto) 0.7 0.0-2.0 % Neutrophils # (Auto) 3.5 1.6-8.6 10 ^3/uL Lymphocytes # (Auto) 2.0 0.4-5.4 10 ^3/uL Monocytes # (Auto) 0.6 0-1.3 10 ^3/uL Eosinophils # (Auto) 0.3 0-0.8 10 ^3/uL Basophils # (Auto) 0 0-0.2 10 ^3/uL Nucleated Red Blood Cells 0.0 % Sodium Level 141 136-145 mmol/L Potassium Level 3.3 L 3.5-5.1 mmol/L Chloride Level 105 98-107 mmol/L Carbon Dioxide Level 25 20-31 mmol/L Anion Gap 11 5-15 Blood Urea Nitrogen 8 L 9-23 mg/dL Creatinine 0.74 0.550-1.02 mg/dL Glomerular Filtration Rate Calc 82 >90 mL/min BUN/Creatinine Ratio 10.8 10.0-20.0 Serum Glucose 111 H 74-106 mg/dL Calcium Level 9.0 8.7-10.4 mg/dL Troponin I High Sensitivity < 3 L </=34 ng/L B-Type Natriuretic Peptide 56.72 0-100 pg/mL Current Medications Medications (Trade) Dose Ordered Sig/Jordan Route Start Time Stop Time Status Last Admin Clonidine HCl (Catapres Tablet) 0.2 mg ONCE ONCE PO 01/09/25 00:30 01/09/25 00:31 DC 01/09/25 00:57 X-Ray, Labs, Meds, VS Comment Urine was pending at time of this note. Laboratories were unremarkable for any systemic concerns. Patient responded well to medication dispensed. As the patient arrived late via ambulance, patient will be admitted for evaluation of urinalysis and EKG results. Patient may require further intervention. Patient currently has no means to returned to her home. Time of 1ST Reevaluation: 01:57 Reevaluation 1ST: Improved Consultation: PCP Patient Education/Counseling: Diagnosis, Treatment Family Education/Counseling: Diagnosis, Treatment SEPSIS Sepsis Screen Date sepsis recognized/suspect: Jan 09, 2025 Time Sepsis recognized/suspect: 0034 Recent Procedure: No On Antibiotic Therapy: No Respiratory Rate >20: No Heart Rate >90: No Temp<36 C (96.8 F) or >38.3 C: No SBP <90 or MAP <65 mmHG: No New Acute Mental Status Change: No Is the patient on CPAP, BIPAP,: No Physician Orders Urinalysis (01/09/25 00:30) Troponin-I Hs (01/09/25 01:30) Troponin-I Hs (01/09/25 03:30) Electrocardigram (01/09/25 00:30) Vital Signs Date Time Temp Pulse Resp B/P (MAP) Pulse Ox O2 Delivery O2 Flow Rate FiO2 01/09/25 00:57 164/92 01/09/25 00:41 98.1 100 22 164/92 (116) 92 98.1 01/09/25 00:31 98.1 106 17 185/125 96 98.1 Laboratory Tests Test 01/09/25 00:40 White Blood Count 6.4 10^3/uL (4.4-10.8) Medications Medications Dose Ordered Sig/Jordan Route Start Time Stop Time Status Last Admin Dose Admin Clonidine HCl 0.2 mg ONCE ONCE PO 01/09/25 00:30 01/09/25 00:31 DC 01/09/25 00:57 Departure 1 Departure Time of Disposition: 01:58 Impression: Primary Impression: Hypertensive urgency Disposition: 09 ADMITTED INPATIENT Condition: Fair Discharged With: Self Critical Care Note Critical Care Time?: No Stability Stability form required: No Heart Score Heart Score: Heart Score Response (Comments) Value History N/A 0 EKG N/A 0 Age N/A 0 Risk Factors N/A 0 Troponin N/A 0 Total 0 TERE GARCIA Jan 09, 2025 01:59
[2025-01-09] MEDS ORDERED: ACETAMINOPHEN 325 MG TAB PO PRN (03:00)
[2025-01-09] MEDS ORDERED: ONDANSETRON HCL 4 MG/2 ML VIAL IV PRN (03:00)
[2025-01-09] MEDS ORDERED: DOCUSATE SOD 100 MG CAP PO PRN (03:00)
[2025-01-09] MEDS ORDERED: HYDROcodone-ACET 5/325MG TAB PO PRN (03:00)
[2025-01-09] MEDS ORDERED: MORPHINE SULFATE INJ 2 MG/ml SYRG IV PRN (04:45)
[2025-01-09] MEDS ORDERED: NITROGLYCERIN 0.4 MG SL TAB SL PRN (04:45)
--- NOTE | 2025-01-09 04:46 | DVHHP2 ---
History of Present Illness Reason for Visit: Dizziness and giddiness History of Present Illness The patient is a 79-year-old female with multiple past medical history including COPD, CVA, lung cancer, thyroid disease, and hypertension who presented to [facility] ED with complaint of dizziness. Patient reports she has been experiencing dizziness for the past 2 months, described as spinning sensation, associated with high blood pressure, reporting systolic blood pressure in the 190s at home, getting worse that prompted this visit. Patient was seen and evaluated in the ED, laboratory data shows WBC 6.4, platelets 226, sodium 141, potassium 3.3, BUN 8, creatinine 0.74, glucose 111, calcium 9.8, BNP 56.72, troponin < 3, blood pressure 185/125 trending down to 150/91, heart rate 85, temperature 98.1 F, O2 saturation 94% on room air. Head CT results pending, please see medication orders section in the computer. On my assessment, patient denied chest pain, no headache, no diaphoresis, no shortness of breaths, no nausea, no vomiting, no fever, no chills. Patient was admitted for further evaluation and medical management. Past Medical History Lung cancer, COPD, CVA, Gallstones, GERD, High Lipids, HTN, Thyroid, UTI'S Past Surgical History Tonsillectomy, lobectomy 3rd of the lungs removed 2019 Family History Reviewed, noncontributory to the management of this case. Past Social History The patient lives at home, denies smoking, alcohol or illicit drugs abuse. Review of Systems Constitutional: Yes: Weakness; No: Fever, Chills, Sweats, Malaise, Other Eyes: No: Pain, Vision change, Conjunctivae inflammation, Eyelid inflammation, Other, Redness ENT: No: Ear pain, Ear discharge, Nose pain, Nose discharge, Nose congestion, Mouth pain, Mouth swelling, Throat pain, Throat swelling, Other Respiratory: No: Cough, Dry, Shortness of breath, SOB with excertion, Wheezing, Hemoptysis, Pleuritic Pain, Sputum, Wheezing, Other Cardiovascular: No: Chest Pain, Palpitations, Orthopnea, Paroxysmal Noc. Dyspn ea, Edema, Lt Headedness, Other Gastrointestinal: No: Nausea, Vomiting, Abdominal Pain, Diarrhea, Constipation, Melena, Hematochezia, Other Genitourinary: No Dysuria, No Frequency, No Incontinence, No Hematuria, No Retention, No Other Musculoskeletal: No: other, neck pain, shoulder pain, arm pain, back pain, hand pain, leg pain, foot pain Skin: No: Rash, Lesions, Jaundice, Bruising, Other Neurological: Other (Dizziness); No: Weakness, Numbness, Incoordination, Change in speech, Confusion, Seizures Allergies: Coded Allergies: Gemfibrozil (Verified Allergy, Unknown, diarrhea/wt loss, 11/27/20) Medications Current Medications Medications Dose Ordered Sig/Jordan Route Start Time Stop Time Status Last Admin Dose Admin Amlodipine Besylate 5 mg DAILY PO 01/09/25 10:00 Clonidine HCl 0.1 mg Q4HP PRN PO 01/09/25 03:00 Benazepril HCl 20 mg DAILY PO 01/09/25 10:00 Atorvastatin Calcium 20 mg HS PO 01/09/25 22:00 Levothyroxine Sodium 50 mcg QAM@0600 PO 01/09/25 06:00 Pantoprazole Sodium 40 mg DAILY IV 01/09/25 10:00 Sodium Chloride 10 ml Q8HR IV 01/09/25 06:00 Acetaminophen/ Hydrocodone Bitart 1 tab Q4HP PRN PO 01/09/25 03:00 Ondansetron HCl 4 mg Q4HP PRN IV 01/09/25 03:00 Docusate Sodium 100 mg BIDPRN PRN PO 01/09/25 03:00 Acetaminophen 650 mg Q6HP PRN PO 01/09/25 03:00 Exam Vital Signs Vital Signs Date Time Temp Pulse Resp B/P (MAP) Pulse Ox O2 Delivery O2 Flow Rate FiO2 01/09/25 02:16 78 01/09/25 01:54 16 150/91 (110) 93 01/09/25 00:41 98.1 98.1 General Appearance: Alert, Oriented X3, Cooperative, No acute distress HEENT: Atraumatic, PERRLA, EOMI, Mucous membr. moist/pink Respiratory: Normal air movement Cardiovascular: Regular rate, Normal S1, Normal S2, No murmurs Abdominal: Normal bowel sounds, Soft, No tenderness, No hepatospenomegaly, No masses Extremities: No clubbing, No cyanosis, No edema, Normal pulses, No tenderness/swelling Skin: No rashes, No breakdown, No significant lesion Neuro: Normal speech, Normal tone, Sensation intact, Cranial nerves 3-12 NL, Reflexes 2+, Other (Generalized weakness) Psych/Mental Status: Mental status NL, Mood NL Labs/Xrays Labs Test 01/09/25 04:27 01/09/25 01:47 01/09/25 00:40 Range/Units Troponin I High Sensitivity 6 </=34 ng/L Eosinophils (%) (Auto) 4.5 0.0-7.0 % Eosinophils # (Auto) 0.3 0-0.8 10 ^3/uL Basophils # (Auto) 0 0-0.2 10 ^3/uL Nucleated Red Blood Cells 0.0 % B-Type Natriuretic Peptide 56.72 0-100 pg/mL SEPSIS Sepsis Screen Date sepsis recognized/suspect: Jan 09, 2025 Time Sepsis recognized/suspect: 33 Recent Procedure: No On Antibiotic Therapy: No Respiratory Rate >20: No Heart Rate >90: No Temp<36 C (96.8 F) or >38.3 C: No SBP <90 or MAP <65 mmHG: No New Acute Mental Status Change: No Is the patient on CPAP, BIPAP,: No Physician Orders Urinalysis (01/09/25 00:30) Electrocardigram (01/09/25 00:30) Complete Blood Count (01/09/25 02:49) Comprehensive Metabolic Panel (01/09/25 02:49) Amlodipine Tablet (Norvasc Tablet) (01/09/25 10:00) Clonidine Hcl Tablet (Catapres Tablet) (01/09/25 03:00) Benazepril Hcl Tablet (Lotensin Tablet) (01/09/25 10:00) Atorvastatin (Lipitor) (01/09/25 22:00) Levothyroxine Tablet (Synthroid Tablet) (01/09/25 06:00) Thyroid Stimulating Hormone (01/09/25 02:49) Pantoprazole (Protonix) (01/09/25 10:00) Allergies (01/09/25 02:49) Code Status (01/09/25 02:49) Sodium Chloride Lock (Saline Lock Ns) (01/09/25 06:00) Oxygen Per Hour (01/09/25 02:49) Hydrocodone-Acet 5/325mg Tab ([place] 5/32 (01/09/25 03:00) Ondansetron Hcl (Zofran) (01/09/25 03:00) Docusate Sodium Capsule (Colace Capsule) (01/09/25 03:00) Fall Risk Precautions In Place QSHIFT (01/09/25 02:49) Complete Blood Count (01/10/25 04:00) Comprehensive Metabolic Panel (01/10/25 04:00) Cardiac Diet-2gna,Lofat,Lochol (01/09/25 Breakfast) Condition: Serious (01/09/25 02:49) Acetaminophen Tablet (Tylenol Tablet) (01/09/25 03:00) Maintain Bed Rest (01/09/25 02:49) Sequential Compression Device (01/09/25 ) Vital Signs Date Time Temp Pulse Resp B/P (MAP) Pulse Ox O2 Delivery O2 Flow Rate FiO2 01/09/25 02:16 78 01/09/25 01:54 85 16 150/91 (110) 93 01/09/25 01:53 150/91 01/09/25 00:57 164/92 01/09/25 00:41 98.1 100 22 164/92 (116) 92 98.1 01/09/25 00:31 98.1 106 17 185/125 96 98.1 Laboratory Tests Test 01/09/25 00:40 01/09/25 04:27 White Blood Count 6.4 10^3/uL (4.4-10.8) Pending Medications Medications Dose Ordered Sig/Jordan Route Start Time Stop Time Status Last Admin Dose Admin Clonidine HCl 0.2 mg ONCE ONCE PO 01/09/25 00:30 01/09/25 00:31 DC 01/09/25 00:57 0.2 MG Assessment/Plan Assessment/Plan Dizziness and giddiness Hypokalemia Hypertensive urgency Generalized weakness Plan 1. Admit to telemetry unit 2. Breathing treatment 3. Pain control management 4. Management of fluids and electrolytes 5. Consultation for Neurology/hospitalist 6. Diagnostic tests head CT 7. DVT prophylaxis-on SCDs 8. Repeat labs CBC, CMP in a.m. 9. Continue with current medical management 10. Treatment plan discussed with patient and RN. Patient verbalized understanding. Plan discussed with: Patient, Other (RN) My Orders Orders - DANIELA SHAVER DNP Procedure Category Date Status Time Complete Blood Count LAB 01/09/25 In Process 02:49 Comprehensive LAB 01/09/25 In Process Metabolic Panel 02:49 Amlodipine Tablet PHA 01/09/25 In Process (Norvasc Tablet) 10:00 Clonidine Hcl Tablet PHA 01/09/25 In Process (Catapres Tablet) 03:00 Benazepril Hcl Tablet PHA 01/09/25 In Process (Lotensin Tablet) 10:00 Atorvastatin (Lipitor) PHA 01/09/25 In Process 22:00 Levothyroxine Tablet PHA 01/09/25 In Process (Synthroid Tablet) 06:00 Thyroid Stimulating LAB 01/09/25 In Process Hormone 02:49 Pantoprazole PHA 01/09/25 In Process (Protonix) 10:00 Allergies TYRONE 01/09/25 In Process 02:49 Code Status CODE 01/09/25 Transmitted 02:49 Sodium Chloride Lock PHA 01/09/25 In Process (Saline Lock Ns) 06:00 Oxygen Per Hour RT 01/09/25 Transmitted 02:49 Hydrocodone-Acet PHA 01/09/25 In Process 5/325mg Tab ([place] 03:00 Ondansetron Hcl PHA 01/09/25 In Process (Zofran) 03:00 Docusate Sodium PHA 01/09/25 In Process Capsule (Colace 03:00 Fall Risk Precautions TYRONE 01/09/[address] 02:49 Complete Blood Count LAB 01/10/25 Verified 04:00 Comprehensive LAB 01/10/25 Verified Metabolic Panel 04:00 Cardiac DIET 01/09/25 Transmitted Diet-2gna,Lofat,Lochol Breakfast Condition: Serious TYRONE 01/09/25 In Process 02:49 Acetaminophen Tablet PHA 01/09/25 In Process (Tylenol Tablet) 03:00 Maintain Bed Rest TYRONE 01/09/25 In Process 02:49 Sequential TYRONE 01/09/25 In Process Compression Device Problem List: (1) Dizziness and giddiness (2) Hypokalemia (3) Hypertensive urgency (4) Generalized weakness Date of Service: Jan 09, 2025 Billing Provider: DANIELA SHAVER DNP Common Visit Codes: [id number] INP/OBS CARE (HIGH) DANIELA SHAVER DNP Jan 09, 2025 04:46
[2025-01-09] MEDS: POTASSIUM CHL 20 Meq TABLET PO ONE (04:49)
[2025-01-09 04:51] LABS: Hematocrit 45.3 % (36.0-46.0); Hemoglobin 15.4 g/dL (12.2-16.2); Mean Corpuscular Hemoglobin 29.5 pg (28.0-32.0); Mean Corpuscular Volume 86.6 fL (80.0-100.0); Nucleated Red Blood Cells % 0.1 %
[2025-01-09 04:55] LABS: Alanine Aminotransferase 18 U/L (7-40); Albumin 4.3 g/dL (3.2-4.8); Anion Gap 9 (5-15); BUN/Creatinine Ratio 11.8 (10.0-20.0); Bilirubin, Total 0.6 mg/dL (0.2-1.0); Blood Urea Nitrogen 10 mg/dL (9-23); Calcium 9.4 mg/dL (8.7-10.4); Carbon Dioxide 29 mmol/L (20-31); Chloride 104 mmol/L (98-107); Potassium 4.0 mmol/L (3.5-5.1); Sodium 142 mmol/L (136-145); Total Protein 6.2 g/dL (5.7-8.2)
[2025-01-09] MEDS ORDERED: MECLIZINE HCL 25 MG TAB PO PRN ×2 (05:00→15:15)
[2025-01-09 05:15] LABS: Alkaline Phosphatase 116 U/L (46-116); Glucose 121 mg/dL (74-106)
[2025-01-09] MEDS: SODIUM CHLOR 0.9% PF (SALINE LOCK) 10ML VIAL/SYR IV SCH (05:18)
[2025-01-09] MEDS: LEVOTHYROXINE SODIUM 50 MCG TAB PO SCH (05:23)
--- NOTE | 2025-01-09 05:59 | DVH ---
EXAM: CT HEAD WITHOUT CONTRAST INDICATION: Dizziness TECHNIQUE: CT of the head without intravenous contrast. Radiation Dose : 1. Head: CT Dose: CTDI volume is 53.46 mGy. Dose-length product is 1053.68 mGy*cm The dose indicators for CT are the volume Computed Tomography (CT) Dose Index (CTDIvol) and the Dose Length Product (DLP), and are measured in units of mGy and mGy-cm, respectively. These indicators are not patient dose, but values generated from the CT scanner acquisition factors. The report includes radiation exposure data for exposures received during this examination. COMPARISON: HEAD WITHOUT CONTRAST on DOS: 02/25/21, CERVICAL WITHOUT CONTRAST on DOS: 02/25/21 FINDINGS: There is no evidence of acute intracranial hemorrhage, extra-axial collection, mass effect, midline s hift, herniation or hydrocephalus. Moderate right frontotemporal and external capsule encephalomalacia consistent with sequelae of remot e insult. Increased prominence of the ventricles, sulci and cisterns is consistent with the sequelae of atrophi c cortical volume loss. The lucas-white differentiation is intact. Moderate diffuse confluent periventricular and subcortical white matter hypoattenuation is nonspecifi c but may be related to small vessel ischemic disease. The visualized paranasal sinuses and mastoid air cells are clear. The surrounding soft tissues and osseous structures are unremarkable. IMPRESSION: 1. No acute intracranial abnormality. 2. Right frontotemporal and external capsule encephalomalacia consistent with sequelae of remote insu lt. 3. Chronic sequelae of microvascular disease and atrophic cortical volume loss. Radiation optimization: All CT scans at this facility use at least one of these dose optimization latoya hniques: automated exposure control mA and/or kV adjustment per patient size (includes targeted exam s where dose is matched to clinical indication) or iterative reconstruction.
[2025-01-09 08:00] VITALS: BP 169/98; PULSE 67; RESP 17; TEMP 96.8; O2SAT 96
[2025-01-09] MEDS ORDERED: ASPI-378 PO (08:33)
[2025-01-09] MEDS: BENAZEPRIL HCL 10 MG TAB PO SCH (09:04)
[2025-01-09] MEDS: PANTOPRAZOLE 40 MG/10 ML VIAL INJ IV SCH (09:10)
[2025-01-09 09:30] VITALS: PULSE 57; RESP 12; O2SAT 95
--- NOTE | 2025-01-09 15:07 | DVHPN2 ---
Subjective Patient continues to report having dizziness Reviewed: Care Plan, H&P, Labs, Medications Changes from previous H/P or p: No Changes General: Per HPI Eyes: No Pain, No Vision change, No Conjunctivae inflammation, No Eyelid inflammation, No Other, No Redness ENT: No Ear pain, No Ear discharge, No Nose pain, No Nose discharge, No Nose congestion, No Mouth pain, No Mouth swelling, No Throat pain, No Throat swelling, No Other Cardiovascular: No Chest Pain, No Palpitations, No Orthopnea, No Paroxysmal Noc. Dyspnea, No Edema, No Lt Headedness, No Other Respiratory: No Cough, No Dry, No Shortness of breath, No SOB with excertion, No Wheezing, No Hemoptysis, No Pleuritic Pain, No Sputum, No Other Gastrointestinal: No Nausea, No Vomiting, No Abdominal Pain, No Diarrhea, No Constipation, No Melena, No Hematochezia, No Other Genitourinary: No Dysuria, No Frequency, No Incontinence, No Hematuria, No Retention, No Other Musculoskeletal: No other, No neck pain, No shoulder pain, No arm pain, No back pain, No hand pain, No leg pain, No foot pain Skin: No Rash, No Lesions, No Jaundice, No Bruising, No Other Objective Vitals Vital Signs Date Time Temp Pulse Resp B/P (MAP) Pulse Ox O2 Delivery O2 Flow Rate FiO2 01/09/25 13:00 Room Air* 0 21 01/09/25 11:30 51 19 133/58 (83) 93 01/09/25 08:00 96.8 96.8 General Appearance: Alert, Oriented X3, Cooperative, No acute distress HEENT: Atraumatic, PERRLA Cardiovascular: Normal S1, Normal S2 Abdomen: Normal bowel sounds, Soft, No tenderness, No hepatospenomegaly, No masses Musculoskeletal: Normal sensory function, Normal motor function Skin: Dry, Intact Psych/Mental Status: Mental status NL, Mood NL Medications Current Medications Medications Dose Ordered Sig/Jordan Route Start Time Stop Time Status Last Admin Dose Admin Amlodipine Besylate 5 mg DAILY PO 01/09/25 10:00 01/09/25 09:04 5 MG Clonidine HCl 0.1 mg Q4HP PRN PO 01/09/25 03:00 01/09/25 05:16 0.1 MG Benazepril HCl 20 mg DAILY PO 01/09/25 10:00 01/09/25 09:04 20 MG Atorvastatin Calcium 20 mg HS PO 01/09/25 22:00 Levothyroxine Sodium 50 mcg QAM@0600 PO 01/09/25 06:00 01/09/25 05:23 50 MCG Pantoprazole Sodium 40 mg DAILY IV 01/09/25 10:00 01/09/25 09:10 40 MG Sodium Chloride 10 ml Q8HR IV 01/09/25 06:00 01/09/25 14:06 10 ML Acetaminophen/ Hydrocodone Bitart 1 tab Q4HP PRN PO 01/09/25 03:00 Ondansetron HCl 4 mg Q4HP PRN IV 01/09/25 03:00 Docusate Sodium 100 mg BIDPRN PRN PO 01/09/25 03:00 Acetaminophen 650 mg Q6HP PRN PO 01/09/25 03:00 Nitroglycerin 0.4 mg Q5MINP PRN SL 01/09/25 04:45 Morphine Sulfate 2 mg Q30M PRN IV 01/09/25 04:45 Meclizine HCl 25 mg Q8HPRN PRN PO 01/09/25 05:00 Laboratory Results Laboratory Tests 01/09/25 04:27 Chemistry Test 01/09/25 00:40 01/09/25 04:27 Calcium Level 9.0 mg/dL (8.7-10.4) 9.4 mg/dL (8.7-10.4) Albumin 4.3 g/dL (3.2-4.8) Total Protein 6.2 g/dL (5.7-8.2) Cardiac Markers Test 01/09/25 00:40 B-Type Natriuretic Peptide 56.72 pg/mL (0-100) LFT Test 01/09/25 04:27 Alanine Aminotransferase (ALT) 18 U/L (7-40) Alkaline Phosphatase 116 U/L (46-116) Aspartate Amino Transferase (AST) 18 U/L (13-40) Total Bilirubin 0.6 mg/dL (0.2-1.0) HgA1c, TSH Test 01/09/25 04:27 Thyroid Stimulating Hormone (TSH) 2.74 uIU/mL (0.55-4.78) Labs and/or images reviewed: Labs reviewed by me, Image(s) reviewed by me Assessment/Plan Assessment/Plan Impression: -rule out CVA -history of CVA -accelerated hypertension -history of lung CA with lobectomy -COPD -GERD Plan: -neurology consultation -recommended MRI, patient refusing due to anxiety -carotid Doppler study -antihypertensives -trial of Antivert -further course of treatment per Neurology recommendations Total time spent with patient discussing and formulating plan of care: 35 minutes. This medical document was created using an electronic medical record system with [employer] dictation system. Although this document has been carefully reviewed, there may still be some phonetic and typographical errors. These areas are purely typographical due to imperfections of the software programs, and do not reflect any compromise in the patient's medical care. Plan discussed with: Patient, Other (RN) My Orders Orders - PANCHITO BARRERA NP Procedure Category Date Status Time * Neurology Consult CONS 01/09/25 Transmitted 14:41 Carotid Duplx W Color US 01/09/25 Logged DOP 15:03 Meclizine Tablet PHA 01/09/25 Verified (Antivert Tablet) 15:15 Date of Service: Jan 09, 2025 Billing Provider: PANCHITO BARRERA NP Common Visit Codes: [id number] INP/OBS CARE(HIGH) PANCHITO BARRERA NP Jan 09, 2025 15:07
[2025-01-09 17:00] VITALS: BP 146/82; PULSE 65; RESP 17; TEMP 97.3; O2SAT 95
--- NOTE | 2025-01-09 17:21 | DVH ---
ULTRASOUND CAROTID DUPLEX BILATERAL REASON FOR EXAM: CVA COMPARISON: None TECHNIQUE: Using real-time freeze-frame technique with a high-frequency small parts transducer, mult iple longitudinal and transverse sections were obtained. Simultaneous color flow Doppler imaging was performed. FINDINGS: There is severe calcified plaque identified in both carotid bulbs and internal carotid art eries. Waveforms are normal. Flow is laminar throughout. Peak systolic velocities as well as ICA/CCA ratios are normal. Flow through the vertebral and external carotid arteries is antegrade bilaterall y. PEAK SYSTOLIC VELOCITIES (cm/sec): RIGHT: CCA 72 Proximal ICA 44 Mid ICA 44 Distal ICA 40 ECA 57 ICA/CCA ratio 0.6 LEFT: CCA 58 Proximal ICA 63 Mid ICA 55 Distal ICA 66 ECA 57 ICA/CCA ratio 1.1 IMPRESSION: Severe atherosclerotic disease with no hemodynamically significant stenosis. Any narrowing is less t irving 50%. Measurement of carotid stenosis is based on velocity parameters that correlate the residual internal carotid diameter with that of the more distal vessel in accordance with the [place] Symptom[place] Carotid Endarterectomy Trial (NASCET).
[2025-01-09 18:26] VITALS: PULSE 53
[2025-01-09 20:00] VITALS: PULSE 51; PULSE 55; RESP 20; O2SAT 95
[2025-01-09 21:00] VITALS: BP 105/57; PULSE 55; RESP 20; TEMP 97.4; O2SAT 95
--- NOTE | 2025-01-09 21:09 | DVHINCON2 ---
Date of service: Jan 09, 2025 Referring Physician Tyron Reason for Consultation Dizziness History of Present Illness Mr. Alexandre is a 79 years old right-handed female with a history of hypertension, dyslipidemia, hypothyroidism, stroke, GERD, gallstone, she was admitted to the [facility] on 01/09/25 with a chief company of dizziness. At that time, she is alert and fully oriented, she provided the following history Since 10/2024 or earlier, she has had infrequent spells of dizziness when she is sitting quietly or standing, in that she had lightheadedness, a feeling of "all the energy being sucked out". She does not think there is associated spinning sensation, and she never had similar problems previously. She was reports mild foggy feeling/confusion during this event. This happens once 1-2 weeks, lasts for about 5 minutes In 2021, when she was sitting on the carpet at home, she developed left-sided weakness in that she was not able to reach her cell phone, she was air transported from her apartment to the [facility] where she was said to have a blood clot in the right-handed, she had the blood clot removed with a device approaching her it from the groin area. At home, she takes baby aspirin and 40 mg Lipitor on daily basis She has a history of seizure disorder CBC, 01/09/2025: Unremarkable CMP, 01/09/2025: Unremarkable TG/HDL/LDL/HDL, 09/15/2024: 171/165/84/53 Vitamin B12, 09/15/2024: 266 Folic acid, 09/15/2024: 10.52 TSH, 01/09/2025: 2.74 Carotid Doppler, 01/09/2025: Severe atherosclerotic disease with no hemodynamically significant stenosis. Any narrowing is less than 50%. CT head, 01/09/2025: 1. No acute intracranial abnormality. 2. Right frontotemporal and external capsule encephalomalacia consistent with sequelae of remote insult. 3. Chronic sequelae of microvascular disease and atrophic cortical volume loss Past Medical History Hypertension, dyslipidemia, hypothyroidism, stroke, GERD, gallstone Past Surgical History Tonsillectomy, lung cancer resection Family History: FH: cancer G8 MOTHER G8 FATHER FH: heart attack 19 CHILD FH: heart disease G8 MOTHER G8 FATHER Family History Hypertension, stroke, cancer. A strong family history of coronary artery disease/heart attack Social History She was tobacco smoke, she denies a history of drug, alcohol abuse Allergies: Coded Allergies: Gemfibrozil (Verified Allergy, Unknown, diarrhea/wt loss, 11/27/20) Home Meds Reported Medications Aspirin (HAYLIE ASPIRIN EC LOW DOSE) 81 Mg Tab, 1 TAB PO DAILY, #30 TAB 3 Refills 01/09/25 Potassium Chloride (Klor-Con 10) 10 Meq Tab, 1 TAB PO BID 09/21/23 Amlodipine Besylate (Amlodipine Besylate) 5 Mg Tab, 1 TAB PO DAILY 09/21/23 Levothyroxine Sodium (Levothyroxine Sodium) 50 Mcg Tab, 1 TAB PO DAILY 09/21/23 Pantoprazole Sodium Sesquihydr (Pantoprazole Sodium) 40 Mg Tab, 1 TAB PO DAILY 09/21/23 Atorvastatin Calcium (ATORVASTATIN CALCIUM) 40 Mg Tab, 40 MG PO DAILY, TAB 04/30/23 Discontinued Reported Medications Benazepril Hcl (Benazepril Hcl) 20 Mg Tab, 1 TAB PO DAILY 09/21/23 Current Medications Current Medications Medications (Trade) Dose Ordered Sig/Jordan Route PRN Reason Start Time Stop Time Status Last Admin Amlodipine Besylate (Norvasc Tablet) 5 mg DAILY PO 01/09/25 10:00 01/09/25 09:04 Clonidine HCl (Catapres Tablet) 0.1 mg Q4HP PRN PO SBP>150 01/09/25 03:00 01/09/25 05:16 Benazepril HCl (Lotensin Tablet) 20 mg DAILY PO 01/09/25 10:00 01/09/25 09:04 Atorvastatin Calcium (Lipitor) 20 mg HS PO 01/09/25 22:00 Levothyroxine Sodium (Synthroid Tablet) 50 mcg QAM@0600 PO 01/09/25 06:00 01/09/25 05:23 Pantoprazole Sodium (Protonix) 40 mg DAILY IV 01/09/25 10:00 01/09/25 09:10 Sodium Chloride (Saline Lock Ns) 10 ml Q8HR IV 01/09/25 06:00 01/09/25 14:06 Acetaminophen/ Hydrocodone Bitart (Waddy 5/325MG Tab) 1 tab Q4HP PRN PO MODERATE PAIN (4-6 PAIN SCALE) 01/09/25 03:00 Ondansetron HCl (Zofran) 4 mg Q4HP PRN IV NAUSEA / VOMITING 01/09/25 03:00 Docusate Sodium (Colace Capsule) 100 mg BIDPRN PRN PO FOR CONSTIPATION 01/09/25 03:00 Acetaminophen (Tylenol Tablet) 650 mg Q6HP PRN PO PAIN SCALE 1-3 OR TEMP>100.4 01/09/25 03:00 Nitroglycerin (Ntrostat Sublingual) 0.4 mg Q5MINP PRN SL FOR CHEST PAIN 01/09/25 04:45 Morphine Sulfate 2 mg Q30M PRN IV FOR CHEST PAIN 01/09/25 04:45 Meclizine HCl (Antivert Tablet) 25 mg Q8HPRN PRN PO DIZZINESS 01/09/25 05:00 Cancel Meclizine HCl (Antivert Tablet) 25 mg Q8HPRN PRN PO DIZZINESS 01/09/25 15:15 Review of Systems As above, the other systems are negative Vital Signs Vital Signs Date Time Temp Pulse Resp B/P (MAP) Pulse Ox O2 Delivery O2 Flow Rate FiO2 01/09/25 18:26 53 01/09/25 17:00 97.3 17 146/82 (103) 95 97.3 01/09/25 13:00 Room Air* 0 21 Physical Exam GENERAL EXAM: General: the patient is well developed and nourished. No acute distress. HEENT: Normocephalic, neck is supple, no carotid bruits. No mass. RESPIRATORY: Normal respiratory effort with symmetrical lung expansion. Lungs clear to auscultation. CARDIOVASCULAR: Regular rate and rhythm with no murmurs. S1, S2. ABDOMEN: Soft, nontender, normal bowel sound NEUROLOGICAL: MENTAL STATUS: Awake and alert. Oriented to person, place, time and general circumstances. Poorly organized historian SPEECH, LANGUAGE, HIGHER CORTICAL FUNCTION: no aphasia or dysathria. CRANIAL NERVES: #2: Intact visual chavez to confrontation. The optic discs were sharp. #3,4,6: Pupils are equal, round and reactive. EOMs full and conjugate. #5: Facial sensation intact in all three divisions bilaterally. Mandibular st rength intact. #7: Facial muscles symmetrical and strength intact. #8: Hearing grossly normal to voice. #9,10: Uvula and soft palate rise in the midline. Swallow and voice are normal. #11: Trapezius and sternomastoid strength intact bilaterally. #12: Tongue midline. No fasciculations or atrophy. SENSATION: Sensation to touch and pinprick is normal. MOTOR: Normal tone in the upper and lower extremity. Normal muscle bulk. No fasciculations. No abnormal movements or posturing. Muscle strength of the major groups in the extremities is 5/5 with left leg drift. REFLEXES: Deep tendon reflexes are symmetrical. No pathological reflexes. CEREBELLAR/COORDINATION: Finger to nose and heel to balderas are normal bilaterally. GAIT/STATION: deferred. Labs/Diagnostic Data Labs Test 01/09/25 04:27 01/09/25 01:47 01/09/25 00:40 Range/Units White Blood Count 7.0 4.4-10.8 10^3/uL Red Blood Count 5.23 H 4.0-5.20 10^6/uL Hemoglobin 15.4 12.2-16.2 g/dL Hematocrit 45.3 36.0-46.0 % Mean Corpuscular Volume 86.6 80.0-100.0 fL Mean Corpuscular Hemoglobin 29.5 28.0-32.0 pg Mean Corpuscular Hemoglobin Concent 34.1 32.0-36.0 g/dL Red Cell Distribution Width 14.7 H 11.8-14.3 % Platelet Count 243 140-450 10^3/uL Mean Platelet Volume 8.5 6.9-10.8 fL Neutrophils (%) (Auto) 69.1 37.0-80.0 % Lymphocytes (%) (Auto) 22.1 10.0-50.0 % Monocytes (%) (Auto) 6.2 0.0-12.0 % Eosinophils (%) (Auto) 1.8 0.0-7.0 % Basophils (%) (Auto) 0.8 0.0-2.0 % Neutrophils # (Auto) 4.8 1.6-8.6 10 ^3/uL Lymphocytes # (Auto) 1.5 0.4-5.4 10 ^3/uL Monocytes # (Auto) 0.4 0-1.3 10 ^3/uL Eosinophils # (Auto) 0.1 0-0.8 10 ^3/uL Basophils # (Auto) 0.1 0-0.2 10 ^3/uL Nucleated Red Blood Cells 0.1 % Sodium Level 142 136-145 mmol/L Potassium Level 4.0 3.5-5.1 mmol/L Chloride Level 104 98-107 mmol/L Carbon Dioxide Level 29 20-31 mmol/L Anion Gap 9 5-15 Blood Urea Nitrogen 10 9-23 mg/dL Creatinine 0.85 0.550-1.02 mg/dL Glomerular Filtration Rate Calc 70 >90 mL/min BUN/Creatinine Ratio 11.8 10.0-20.0 Serum Glucose 121 H 74-106 mg/dL Calcium Level 9.4 8.7-10.4 mg/dL Total Bilirubin 0.6 0.2-1.0 mg/dL Aspartate Amino Transferase (AST) 18 13-40 U/L Alanine Aminotransferase (ALT) 18 7-40 U/L Alkaline Phosphatase 116 46-116 U/L Total Protein 6.2 5.7-8.2 g/dL Albumin 4.3 3.2-4.8 g/dL Thyroid Stimulating Hormone (TSH) 2.74 0.55-4.78 uIU/mL Troponin I High Sensitivity 6 </=34 ng/L B-Type Natriuretic Peptide 56.72 0-100 pg/mL Assessment Episodic event with lightheadedness, fatigue, and mild confusion ? Partial complex seizure ? TIA Clonic stroke with minimal left leg weakness Multiple independent cardiovascular risk factors Plan/Recommendation Hypertension, dyslipidemia, hypothyroidism, stroke, GERD, gallstone, Monitoring Supportive treatment Telemetry EEG MR brain scan Aspirin 81 mg daily Lipitor 40 mg daily GI prophylaxis More recommendation per clinical course She is a poor historian, long time spent with her Prognosis: Poor This medical document was created using an electronic medical record system with [employer] dictation system. Although this document has been carefully reviewed, there may still be some phonetic and typographical errors. These areas are purely typographical due to imperfections of the software programs, and do not reflect any compromise in the patient's medical care. Plan discussed with: Patient, Other RAJNI BROWN MD Jan 09, 2025 21:09
[2025-01-09] MEDS: ATORVASTATIN 20 MG TAB PO SCH (21:26)
[2025-01-10] VITALS (9 sets, daily range): BP systolic 126–158; BP diastolic 65–94; PULSE 53–103; RESP 15–20; TEMP 96.7–97.8; O2SAT 91–95
[2025-01-10 01:57] LABS: Urine Protein, UAD Negative (Negative); Urine WBC Clumps PRESENT /hpf (None Seen)
[2025-01-10 07:30] LABS: Hematocrit 41.8 % (36.0-46.0); Hemoglobin 14.3 g/dL (12.2-16.2); Mean Corpuscular Hemoglobin 29.9 pg (28.0-32.0); Mean Corpuscular Volume 87.4 fL (80.0-100.0); Nucleated Red Blood Cells % 0.1 %
[2025-01-10 07:34] LABS: Alanine Aminotransferase 15 U/L (7-40); Albumin 3.7 g/dL (3.2-4.8); Alkaline Phosphatase 94 U/L (46-116); Anion Gap 9 (5-15); BUN/Creatinine Ratio 10.6 (10.0-20.0); Bilirubin, Total 1.0 mg/dL (0.2-1.0); Calcium 8.9 mg/dL (8.7-10.4); Carbon Dioxide 27 mmol/L (20-31); Glucose 91 mg/dL (74-106); Potassium 3.8 mmol/L (3.5-5.1); Sodium 144 mmol/L (136-145)
[2025-01-10 07:39] LABS: Blood Urea Nitrogen 7 mg/dL (9-23); Chloride 108 mmol/L (98-107); Total Protein 5.4 g/dL (5.7-8.2)
[2025-01-10] MEDS: LORazepam 2MG/ML-1ML VIAL IV PRN (09:31)
--- NOTE | 2025-01-10 10:20 | ECG ---
[facility] Test Date: 2025-01-09 Test Time: 02:16:44 Pat Name: SILVA MARTINEZ Department: ED Room: [facility]1T B Gender: F Instrument Checker: DYANA : 1945 Requested By: TERE GARCIA Order Number: [id number] Reading MD: Singh Perez Measurements Intervals [place] Rate: 78 P: 48 [place]: 142 QRS: 28 QRSD: 83 T: 34 QT: 392 QTc: 447 Interpretive Statements Sinus rhythm Probable left atrial enlargement Abnormal R-wave progression, early transition Electronically Signed On 01-10-2025 22:59:26 PDT by Singh Perez Please click the below link to view image of tracing.
--- NOTE | 2025-01-10 10:23 | DVH ---
EXAM: MRI BRAIN HEAD WO CONTRAST HISTORY: CVA, ALOC COMPARISON: CT HEAD WITHOUT CONTRAST on DOS: 01/09/25, HEAD WITHOUT CONTRAST on DOS: 02/25/21 TECHNIQUE: MRI was performed utilizing multiple appropriate imaging planes and pulse sequences. FINDINGS: SUPRATENTORIAL REGION: No evidence for acute ischemia or intracranial hemorrhage. Sequela of old hem orrhagic infarct of the right lentiform nucleus noted. Scattered ill-defined FLAIR hyperintensities a re noted within the bilateral periventricular region, larkin radiata and subcortical white matter. POSTERIOR FOSSA: Unremarkable. BRAINSTEM: Unremarkable. SELLAR/SUPRASELLAR REGION: Unremarkable. VENTRICLES, CISTERNS, SULCI: Mildly prominent reflecting global volume loss. ORBITS: Unremarkable. PARANASAL SINUSES: Unremarkable. MASTOID AIR CELLS: Unremarkable. VASCULATURE: Unremarkable. BONES/ SOFT TISSUES: Unremarkable. OTHER: None. IMPRESSION: 1. No acute intracranial process identified. 2. Sequela of old hemorrhagic infarct in the right basal ganglia. 3. Mild global cortical atrophy and moderate chronic microvascular ischemic changes.
--- NOTE | 2025-01-10 11:59 | DVHPN2 ---
Subjective Dizziness improving Reviewed: Care Plan, H&P, Labs, Medications Changes from previous H/P or p: Changes General: Per HPI Eyes: No Pain, No Vision change, No Conjunctivae inflammation, No Eyelid inflammation, No Other, No Redness ENT: No Ear pain, No Ear discharge, No Nose pain, No Nose discharge, No Nose congestion, No Mouth pain, No Mouth swelling, No Throat pain, No Throat swelling, No Other Cardiovascular: No Chest Pain, No Palpitations, No Orthopnea, No Paroxysmal Noc. Dyspnea, No Edema, No Lt Headedness, No Other Respiratory: No Cough, No Dry, No Shortness of breath, No SOB with excertion, No Wheezing, No Hemoptysis, No Pleuritic Pain, No Sputum, No Other Gastrointestinal: No Nausea, No Vomiting, No Abdominal Pain, No Diarrhea, No Constipation, No Melena, No Hematochezia, No Other Genitourinary: No Dysuria, No Frequency, No Incontinence, No Hematuria, No Retention, No Other Musculoskeletal: No other, No neck pain, No shoulder pain, No arm pain, No back pain, No hand pain, No leg pain, No foot pain Skin: No Rash, No Lesions, No Jaundice, No Bruising, No Other Objective Vitals Vital Signs Date Time Temp Pulse Resp B/P (MAP) Pulse Ox O2 Delivery O2 Flow Rate FiO2 01/10/25 09:32 144/80 01/10/25 08:30 97.8 53 18 91 97.8 01/10/25 08:05 Room Air* 0 21 Intake/Output Intake and Output 01/10/25 07:00 Intake Total 320 ml Balance 320 ml Intake Oral 320 ml # Voids 3 General Appearance: Alert, Oriented X3, Cooperative, No acute distress HEENT: Atraumatic, PERRLA Cardiovascular: Normal S1, Normal S2 Abdomen: Normal bowel sounds, Soft, No tenderness, No hepatospenomegaly, No masses Musculoskeletal: Normal sensory function, Normal motor function Skin: Dry, Intact Psych/Mental Status: Mental status NL, Mood NL Medications Current Medications Medications Dose Ordered Sig/Jordan Route Start Time Stop Time Status Last Admin Dose Admin Amlodipine Besylate 5 mg DAILY PO 01/09/25 10:00 01/10/25 09:32 5 MG Clonidine HCl 0.1 mg Q4HP PRN PO 01/09/25 03:00 01/09/25 05:16 0.1 MG Benazepril HCl 20 mg DAILY PO 01/09/25 10:00 01/10/25 09:31 20 MG Atorvastatin Calcium 20 mg HS PO 01/09/25 22:00 01/09/25 21:26 20 MG Levothyroxine Sodium 50 mcg QAM@0600 PO 01/09/25 06:00 01/10/25 05:29 50 MCG Pantoprazole Sodium 40 mg DAILY IV 01/09/25 10:00 01/10/25 09:31 40 MG Sodium Chloride 10 ml Q8HR IV 01/09/25 06:00 01/10/25 05:29 10 ML Acetaminophen/ Hydrocodone Bitart 1 tab Q4HP PRN PO 01/09/25 03:00 Ondansetron HCl 4 mg Q4HP PRN IV 01/09/25 03:00 Docusate Sodium 100 mg BIDPRN PRN PO 01/09/25 03:00 Acetaminophen 650 mg Q6HP PRN PO 01/09/25 03:00 Nitroglycerin 0.4 mg Q5MINP PRN SL 01/09/25 04:45 Morphine Sulfate 2 mg Q30M PRN IV 01/09/25 04:45 Meclizine HCl 25 mg Q8HPRN PRN PO 01/09/25 05:00 Cancel Meclizine HCl 25 mg Q8HPRN PRN PO 01/09/25 15:15 Lorazepam 1 mg ONCE PRN IV 01/09/25 22:30 01/10/25 09:31 1 MG Aspirin 81 mg DAILY PO 01/10/25 10:00 01/10/25 09:37 81 MG Laboratory Results Laboratory Tests 01/10/25 06:15 Chemistry Test 01/10/25 06:15 Albumin 3.7 g/dL (3.2-4.8) Calcium Level 8.9 mg/dL (8.7-10.4) Total Protein 5.4 g/dL (5.7-8.2) L LFT Test 01/10/25 06:15 Alanine Aminotransferase (ALT) 15 U/L (7-40) Alkaline Phosphatase 94 U/L (46-116) Aspartate Amino Transferase (AST) 19 U/L (13-40) Total Bilirubin 1.0 mg/dL (0.2-1.0) Urinalysis Test 01/10/25 01:40 Urine Color Dark yellow (Yellow) Urine Clarity Turbid (Clear) H Urine pH 5.5 (5.0-9.0) Urine Specific [place] 1.014 (1.001-1.035) Urine Protein Negative (Negative) Urine Ketones Negative (Negative) Urine Blood Trace /uL (Negative) H Urine Nitrite 2+ (Negative) H Urine Bilirubin Negative (Negative) Urine Urobilinogen Normal mg/dL (Negative) Urine Leukocyte Esterase 3+ /uL (Negative) Urine RBC 8 /hpf (0 - 4) Urine WBC Clumps Present /hpf (None Seen) Urine Microscopic WBC 254 /HPF (0-5) H Urine Squamous Epithelial Cells Few /hpf (<5) Urine Bacteria None seen /hpf (None Seen) Urine Mucus Few (None Seen) Urine Glucose Normal mg/dL (Normal) Labs and/or images reviewed: Labs reviewed by me, Image(s) reviewed by me Assessment/Plan Assessment/Plan Impression: -rule out CVA -history of CVA -accelerated hypertension -history of lung CA with lobectomy -COPD -GERD -complicated cystitis Plan: -neurology consultation : Recommendations reviewed -MRI negative for acute CVA -carotid Doppler study : No carotid obstruction noted -antihypertensives -trial of Antivert -start IV antibiotic: Rocephin 1 g daily Total time spent with patient discussing and formulating plan of care: 35 minutes. This medical document was created using an electronic medical record system with [employer] dictation system. Although this document has been carefully reviewed, there may still be some phonetic and typographical errors. These areas are purely typographical due to imperfections of the software programs, and do not reflect any compromise in the patient's medical care. Plan discussed with: Patient, Other (RN) My Orders Orders - PANCHITO BARRERA NP Procedure Category Date Status Time * Neurology Consult CONS 01/09/25 Transmitted 14:41 Carotid Duplx W Color US 01/09/25 Resulted DOP 15:03 Meclizine Tablet PHA 01/09/25 In Process (Antivert Tablet) 15:15 Ceftriaxone 1gm/50ml PHA 01/10/25 Logged D5w (Rocephin) 12:00 Date of Service: Jan 10, 2025 Billing Provider: PANCHITO BARRERA NP Common Visit Codes: [id number] INP/OBS CARE(HIGH) PANCHITO BARRERA PROTECTION SPECIALIST Jan 10, 2025 11:59
[2025-01-10] MEDS: cefTRIAXone 1GM/50ML D5W 50 ML IV SCH (12:00)
--- NOTE | 2025-01-10 21:38 | DVHPN2 ---
Progress Note - Dictate Date Seen: Jan 10, 2025 Medical Necessity Reason Pt with a Central, PICC or Fol: No Subjective Mr. Alexandre is a 79 years old right-handed female with a history of hypertension, dyslipidemia, hypothyroidism, stroke, GERD, gallstone, she was admitted to the [facility] on 01/09/25 with a chief company of dizziness. I have seen and examined the patient, I have discussed with her nurse, she reports doing fine, she has walked around with no dizziness, no headache CBC, 01/09/2025: Unremarkable CMP, 01/09/2025: Unremarkable TG/HDL/LDL/HDL, 09/15/2024: 171/165/84/53 Vitamin B12, 09/15/2024: 266 Folic acid, 09/15/2024: 10.52 TSH, 01/09/2025: 2.74 Carotid Doppler, 01/09/2025: Severe atherosclerotic disease with no hemodynamically significant stenosis. Any narrowing is less than 50%. CT head, 01/09/2025: 1. No acute intracranial abnormality. 2. Right frontotemporal and external capsule encephalomalacia consistent with sequelae of remote insult. 3. Chronic sequelae of microvascular disease and atrophic cortical volume loss MRI head, 01/10/2025: 1. No acute intracranial process identified. 2. Sequela of old hemorrhagic infarct in the right basal ganglia. 3. Mild global cortical atrophy and moderate chronic microvascular ischemic changes. vital signs Vital Sign Date Time Temp Pulse Resp B/P (MAP) Pulse Ox O2 Delivery O2 Flow Rate FiO2 01/10/25 21:00 97.8 68 18 130/80 (97) 93 97.8 01/10/25 08:05 Room Air* 0 21 Total Intake and Output 01/09/25 01/09/25 01/10/25 15:00 23:00 07:00 Intake Total 220 ml 100 ml Balance 220 ml 100 ml medications Current Medications Medications Dose Ordered Sig/Jordan Route Start Time Stop Time Status Last Admin Dose Admin Amlodipine Besylate 5 mg DAILY PO 01/09/25 10:00 01/10/25 09:32 5 MG Clonidine HCl 0.1 mg Q4HP PRN PO 01/09/25 03:00 01/09/25 05:16 0.1 MG Benazepril HCl 20 mg DAILY PO 01/09/25 10:00 01/10/25 09:31 20 MG Atorvastatin Calcium 20 mg HS PO 01/09/25 22:00 01/09/25 21:26 20 MG Levothyroxine Sodium 50 mcg QAM@0600 PO 01/09/25 06:00 01/10/25 05:29 50 MCG Pantoprazole Sodium 40 mg DAILY IV 01/09/25 10:00 01/10/25 09:31 40 MG Sodium Chloride 10 ml Q8HR IV 01/09/25 06:00 01/10/25 14:13 10 ML Acetaminophen/ Hydrocodone Bitart 1 tab Q4HP PRN PO 01/09/25 03:00 Ondansetron HCl 4 mg Q4HP PRN IV 01/09/25 03:00 Docusate Sodium 100 mg BIDPRN PRN PO 01/09/25 03:00 Acetaminophen 650 mg Q6HP PRN PO 01/09/25 03:00 Nitroglycerin 0.4 mg Q5MINP PRN SL 01/09/25 04:45 Morphine Sulfate 2 mg Q30M PRN IV 01/09/25 04:45 Meclizine HCl 25 mg Q8HPRN PRN PO 01/09/25 05:00 Cancel Meclizine HCl 25 mg Q8HPRN PRN PO 01/09/25 15:15 Lorazepam 1 mg ONCE PRN IV 01/09/25 22:30 01/10/25 09:31 1 MG Aspirin 81 mg DAILY PO 01/10/25 10:00 01/10/25 09:37 81 MG Ceftriaxone Sodium 50 ml @ 100 mls/hr DAILY@09 IV 01/10/25 12:00 01/10/25 12:00 100 MLS/HR objective General: the patient is well developed and nourished. No acute distress. MENTAL STATUS: Awake and alert. Oriented to person, place, time and general circumstances. Poorly organized historian SPEECH, LANGUAGE, HIGHER CORTICAL FUNCTION: no aphasia or dysathria. CRANIAL NERVES: Pupils are equal, round and reactive. EOMs full and conjugate. Facial sensation intact in all three divisions bilaterally. Mandibular strength intact. Facial muscles symmetrical and strength intact. Tongue midline. No fasciculations or atrophy. SENSATION: Sensation to touch and pinprick is normal. MOTOR: Normal tone in the upper and lower extremity. Normal muscle bulk. No fasciculations. No abnormal movements or posturing. Muscle strength of the major groups in the extremities is 5/5 with left leg drift. REFLEXES: Deep tendon reflexes are symmetrical. No pathological reflexes. CEREBELLAR/COORDINATION: Finger to nose and heel to balderas are normal bilaterally. GAIT/STATION: deferred. laboratory and microbiology Laboratory Tests 01/10/25 06:15 Test 01/10/25 06:15 Range/Units Serum Glucose 91 74-106 mg/dL Problem List Episodic event with lightheadedness, fatigue, and mild confusion ? Partial complex seizure ? TIA Clonic stroke with minimal left leg weakness Multiple independent cardiovascular risk factors Assessment/Plan Monitoring Supportive treatment Telemetry EEG Aspirin 81 mg daily Lipitor 40 mg daily GI prophylaxis More recommendation per clinical course This medical document was created using an electronic medical record system with [employer] dictation system. Although this document has been carefully reviewed, there may still be some phonetic and typographical errors. These areas are purely typographical due to imperfections of the software programs, and do not reflect any compromise in the patient's medical care. Prognosis poor Plan discussed with: Patient, Other RAJNI BROWN MD Jan 10, 2025 21:38
[2025-01-11] VITALS (11 sets, daily range): BP systolic 111–226; BP diastolic 71–133; PULSE 51–85; RESP 16–20; TEMP 97.4–98.7; O2SAT 94–96
[2025-01-11] MEDS ORDERED: CIPR500T4 PO (09:23)
--- NOTE | 2025-01-11 09:59 | DVHPN2 ---
Subjective Patient denies any symptoms. More alert and oriented. Reviewed: Care Plan, H&P, Labs, Medications Changes from previous H/P or p: No Changes General: Per HPI Eyes: No Pain, No Vision change, No Conjunctivae inflammation, No Eyelid inflammation, No Other, No Redness ENT: No Ear pain, No Ear discharge, No Nose pain, No Nose discharge, No Nose congestion, No Mouth pain, No Mouth swelling, No Throat pain, No Throat swelling, No Other Cardiovascular: No Chest Pain, No Palpitations, No Orthopnea, No Paroxysmal Noc. Dyspnea, No Edema, No Lt Headedness, No Other Respiratory: No Cough, No Dry, No Shortness of breath, No SOB with excertion, No Wheezing, No Hemoptysis, No Pleuritic Pain, No Sputum, No Other Gastrointestinal: No Nausea, No Vomiting, No Abdominal Pain, No Diarrhea, No Constipation, No Melena, No Hematochezia, No Other Genitourinary: No Dysuria, No Frequency, No Incontinence, No Hematuria, No Retention, No Other Musculoskeletal: No other, No neck pain, No shoulder pain, No arm pain, No back pain, No hand pain, No leg pain, No foot pain Skin: No Rash, No Lesions, No Jaundice, No Bruising, No Other Objective Vitals Vital Signs Date Time Temp Pulse Resp B/P (MAP) Pulse Ox O2 Delivery O2 Flow Rate FiO2 01/11/25 08:59 142/71 01/11/25 05:47 81 18 95 01/11/25 05:00 97.6 97.6 01/10/25 20:00 Room Air* 0 21 Intake/Output Intake and Output 01/11/25 07:00 Intake Total 1575 ml Balance 1575 ml Intake Oral 1575 ml # Voids 7 General Appearance: Alert, Oriented X3, Cooperative, No acute distress HEENT: Atraumatic, PERRLA Cardiovascular: Normal S1, Normal S2 Abdomen: Normal bowel sounds, Soft, No tenderness, No hepatospenomegaly, No masses Musculoskeletal: Normal sensory function, Normal motor function Skin: Dry, Intact Psych/Mental Status: Mental status NL, Mood NL Medications Current Medications Medications Dose Ordered Sig/Jordan Route Start Time Stop Time Status Last Admin Dose Admin Amlodipine Besylate 5 mg DAILY PO 01/09/25 10:00 01/11/25 08:59 5 MG Clonidine HCl 0.1 mg Q4HP PRN PO 01/09/25 03:00 01/11/25 05:58 0.1 MG Benazepril HCl 20 mg DAILY PO 01/09/25 10:00 01/11/25 08:59 20 MG Atorvastatin Calcium 20 mg HS PO 01/09/25 22:00 01/10/25 21:53 20 MG Levothyroxine Sodium 50 mcg QAM@0600 PO 01/09/25 06:00 01/11/25 05:57 50 MCG Pantoprazole Sodium 40 mg DAILY IV 01/09/25 10:00 01/11/25 08:57 40 MG Sodium Chloride 10 ml Q8HR IV 01/09/25 06:00 01/11/25 05:58 10 ML Acetaminophen/ Hydrocodone Bitart 1 tab Q4HP PRN PO 01/09/25 03:00 Ondansetron HCl 4 mg Q4HP PRN IV 01/09/25 03:00 Docusate Sodium 100 mg BIDPRN PRN PO 01/09/25 03:00 Acetaminophen 650 mg Q6HP PRN PO 01/09/25 03:00 Nitroglycerin 0.4 mg Q5MINP PRN SL 01/09/25 04:45 Morphine Sulfate 2 mg Q30M PRN IV 01/09/25 04:45 Meclizine HCl 25 mg Q8HPRN PRN PO 01/09/25 05:00 Cancel Meclizine HCl 25 mg Q8HPRN PRN PO 01/09/25 15:15 Lorazepam 1 mg ONCE PRN IV 01/09/25 22:30 01/10/25 09:31 1 MG Aspirin 81 mg DAILY PO 01/10/25 10:00 01/11/25 08:58 81 MG Ceftriaxone Sodium 50 ml @ 100 mls/hr DAILY@09 IV 01/10/25 12:00 01/11/25 08:57 100 MLS/HR Laboratory Results Laboratory Tests 01/10/25 06:15 Urinalysis Test 01/10/25 01:40 Urine Color Dark yellow (Yellow) Urine Clarity Turbid (Clear) H Urine pH 5.5 (5.0-9.0) Urine Specific [place] 1.014 (1.001-1.035) Urine Protein Negative (Negative) Urine Ketones Negative (Negative) Urine Blood Trace /uL (Negative) H Urine Nitrite 2+ (Negative) H Urine Bilirubin Negative (Negative) Urine Urobilinogen Normal mg/dL (Negative) Urine Leukocyte Esterase 3+ /uL (Negative) Urine RBC 8 /hpf (0 - 4) Urine WBC Clumps Present /hpf (None Seen) Urine Microscopic WBC 254 /HPF (0-5) H Urine Squamous Epithelial Cells Few /hpf (<5) Urine Bacteria None seen /hpf (None Seen) Urine Mucus Few (None Seen) Urine Glucose Normal mg/dL (Normal) Labs and/or images reviewed: Labs reviewed by me, Image(s) reviewed by me Assessment/Plan Assessment/Plan Impression: -rule out CVA -history of CVA -accelerated hypertension -metabolic encephalopathy -history of lung CA with lobectomy -COPD -GERD -complicated cystitis -paroxysmal atrial fibrillation with periods of bradycardia. Noted R on T Plan: Events: Patient now more alert, able to follow commands. Now that patient is less encephalopathic, she reports that she has been feeling palpitations, heart rate racing during the evening, as well as having approximately two months of generalized weakness. Reviewing previous 24 hour telemetry reveals periods of paroxysmal atrial fibrillation, sinus bradycardia, and R on T episodes -cardiology consultation -CHADS-VASc score 6. We will discuss with both Cardiology and Neurology with the need for anticoagulation at discharge. Echocardiogram currently pending -MRI negative for acute CVA -carotid Doppler study : No carotid obstruction noted -antihypertensives -trial of Antivert -start IV antibiotic: Rocephin 1 g daily Total time spent with patient discussing and formulating plan of care: 35 minutes. This medical document was created using an electronic medical record system with [employer] dictation system. Although this document has been carefully reviewed, there may still be some phonetic and typographical errors. These areas are purely typographical due to imperfections of the software programs, and do not reflect any compromise in the patient's medical care. Plan discussed with: Patient, Other (RN) My Orders Orders - PANCHITO BARRERA GROUT PUMP OPERATOR Procedure Category Date Status Time Ceftriaxone 1gm/50ml PHA 01/10/25 In Process D5w (Rocephin) 12:00 Echo 2d Mode Cardiac US 01/11/25 Logged DOP 09:42 * Cardiology Consult CONS 01/11/25 Transmitted 09:43 Orthostatic Vital ORDERS 01/11/25 Verified Signs 09:55 Date of Service: Jan 11, 2025 Billing Provider: PANCHITO BARRERA NP Common Visit Codes: [id number] INP/OBS CARE(HIGH) PANCHITO BARRERA NP Jan 11, 2025 09:59
--- NOTE | 2025-01-11 10:56 | DVHSR ---
APPROVED REPORT EXAM: Two-dimensional and M-mode echocardiogram with Doppler and color Doppler. Blood Pressure: 147/71 mmHg INDICATION near syncope, new onset afib RISK FACTORS Height: 5'7, Weight: 192 DIMENSIONS LVDd4.8 (3.8-5.7cm)LA (2D)3.7 (1.9-4.0cm)Aortic Root3.3 (2.0-3.7cm) LVDs3.5 (2.5-4.0cm)LA (MM) (1.9-4.0cm)Aortic Cusp Exc1.8 (1.5-2.0cm) EF (%) 55.0 (55-70%)Rt. Atrium3.8 (1.9-4.0cm)Asc. Aorta cm IVSd1.0 (0.7-1.1cm)RV (D)4.3 (1.8-2.4cm) PWd0.9 (0.7-1.1cm) Mitral Valve MitralMitral Stenosis E wave0.54m/sMV Mean GR.mmHg A wave0.79m/sMV Peak GR.mmHg E/A ratio0.72D MVAcm2 DECEL [id number] 1/2 Timems Aortic Valve Aortic ValveAortic Stenosis V10.76m/Trista Mean GR.3mmHg V21.13m/Trista Peak GR.5mmHg LVOT Diameter2.3 (1.8-2.4cm)Doppler AVA2.79cm2 Pulmonic Valve V20.71m/s Other Information Technically limited study due to patient position. Conclusion lvef 55% sigmoid septum RV enlarged mild no severe valve abnormalities noted pericardial fat pad present
--- NOTE | 2025-01-11 16:38 | DVHINCON2 ---
Date of service: Jan 11, 2025 History of Present Illness 79 yo F with hx of lung cancer s/p surgery , CVA 2020, hx of ?arrhythmia but pt doesnt see cards regularly admittedf for AMS and UTI. pt is doing much better now. her brain MRI was - for acute path but she had an old bleed. she is SR on tele but had short runs of atrial tach. Past Medical History reviewed Family History: FH: cancer G8 MOTHER G8 FATHER FH: heart attack 19 CHILD FH: heart disease G8 MOTHER G8 FATHER Allergies: Coded Allergies: Gemfibrozil (Verified Allergy, Unknown, diarrhea/wt loss, 11/27/20) Home Meds Active Scripts Ciprofloxacin Hcl (Ciprofloxacin Hcl) 500 Mg Tab, 1 TAB PO BID for 5 Days, #10 TAB Prov:PANCHITO BARRERA BENCH MANAGER 01/11/25 Reported Medications Aspirin (HAYLIE ASPIRIN EC LOW DOSE) 81 Mg Tab, 1 TAB PO DAILY, #30 TAB 3 Refills 01/09/25 Potassium Chloride (Klor-Con 10) 10 Meq Tab, 1 TAB PO BID 09/21/23 Amlodipine Besylate (Amlodipine Besylate) 5 Mg Tab, 1 TAB PO DAILY 09/21/23 Levothyroxine Sodium (Levothyroxine Sodium) 50 Mcg Tab, 1 TAB PO DAILY 09/21/23 Pantoprazole Sodium Sesquihydr (Pantoprazole Sodium) 40 Mg Tab, 1 TAB PO DAILY 09/21/23 Atorvastatin Calcium (ATORVASTATIN CALCIUM) 40 Mg Tab, 40 MG PO DAILY, TAB 04/30/23 Discontinued Reported Medications Benazepril Hcl (Benazepril Hcl) 20 Mg Tab, 1 TAB PO DAILY 09/21/23 Review of Systems 10 pt ros otherwise negative Vital Signs Vital Signs Date Time Temp Pulse Resp B/P (MAP) Pulse Ox O2 Delivery O2 Flow Rate FiO2 01/11/25 14:34 142/78 01/11/25 13:00 97.4 85 19 96 97.4 01/11/25 08:05 Room Air* 0 21 Physical Exam nad s1 s2 rrr ctab soft nt/nd Labs/Diagnostic Data Labs Test 01/10/25 06:15 01/10/25 01:40 01/09/25 04:27 01/09/25 01:47 Range/Units White Blood Count 5.3 4.4-10.8 10^3/uL Red Blood Count 4.79 4.0-5.20 10^6/uL Hemoglobin 14.3 12.2-16.2 g/dL Hematocrit 41.8 36.0-46.0 % Mean Corpuscular Volume 87.4 80.0-100.0 fL Mean Corpuscular Hemoglobin 29.9 28.0-32.0 pg Mean Corpuscular Hemoglobin Concent 34.3 32.0-36.0 g/dL Red Cell Distribution Width 14.4 H 11.8-14.3 % Platelet Count 189 140-450 10^3/uL Mean Platelet Volume 8.6 6.9-10.8 fL Neutrophils (%) (Auto) 58.0 37.0-80.0 % Lymphocytes (%) (Auto) 24.8 10.0-50.0 % Monocytes (%) (Auto) 10.8 0.0-12.0 % Eosinophils (%) (Auto) 5.7 0.0-7.0 % Basophils (%) (Auto) 0.7 0.0-2.0 % Neutrophils # (Auto) 3.0 1.6-8.6 10 ^3/uL Lymphocytes # (Auto) 1.3 0.4-5.4 10 ^3/uL Monocytes # (Auto) 0.6 0-1.3 10 ^3/uL Eosinophils # (Auto) 0.3 0-0.8 10 ^3/uL Basophils # (Auto) 0 0-0.2 10 ^3/uL Nucleated Red Blood Cells 0.1 % Sodium Level 144 136-145 mmol/L Potassium Level 3.8 3.5-5.1 mmol/L Chloride Level 108 H 98-107 mmol/L Carbon Dioxide Level 27 20-31 mmol/L Anion Gap 9 5-15 Blood Urea Nitrogen 7 L 9-23 mg/dL Creatinine 0.66 0.550-1.02 mg/dL Glomerular Filtration Rate Calc 89 >90 mL/min BUN/Creatinine Ratio 10.6 10.0-20.0 Serum Glucose 91 74-106 mg/dL Calcium Level 8.9 8.7-10.4 mg/dL Total Bilirubin 1.0 0.2-1.0 mg/dL Aspartate Amino Transferase (AST) 19 13-40 U/L Alanine Aminotransferase (ALT) 15 7-40 U/L Alkaline Phosphatase 94 46-116 U/L Total Protein 5.4 L 5.7-8.2 g/dL Albumin 3.7 3.2-4.8 g/dL Urine Color Dark yellow Yellow Urine Clarity Turbid H Clear Urine pH 5.5 5.0-9.0 Urine Specific [place] 1.014 1.001-1.035 Urine Protein Negative Negative Urine Ketones Negative Negative Urine Blood Trace H Negative /uL Urine Nitrite 2+ H Negative Urine Bilirubin Negative Negative Urine Urobilinogen Normal Negative mg/dL Urine Leukocyte Esterase 3+ Negative /uL Urine RBC 8 0 - 4 /hpf Urine WBC Clumps Present None Seen /hpf Urine Microscopic WBC 254 H 0-5 /HPF Urine Squamous Epithelial Cells Few <5 /hpf Urine Bacteria None seen None Seen /hpf Urine Mucus Few None Seen Urine Glucose Normal Normal mg/dL Thyroid Stimulating Hormone (TSH) 2.74 0.55-4.78 uIU/mL Troponin I High Sensitivity 6 </=34 ng/L Test 01/09/25 00:40 Range/Units B-Type Natriuretic Peptide 56.72 0-100 pg/mL Assessment atherosclerosis hx of old CVA vs ?old ICH paroxysmal atrial tach not specified short runs PVCs obesity UTI Plan/Recommendation i would recommend asa/ statin consider outpt ILR vs holter for suspected arrhythmia no long episodes of afib noted on tele (if there is , then consider starting DOAC ) severe atherosclerosis noted in coronary on chest CT likely needs LDL <70 closer to 50 in future, high risk for future cva Plan discussed with: Patient SAIGE PACE MD Jan 11, 2025 16:38
--- NOTE | 2025-01-11 21:38 | DVHPN2 ---
Progress Note - Dictate Date Seen: Jan 11, 2025 Medical Necessity Reason Pt with a Central, PICC or Fol: No Subjective Mr. Alexandre is a 79 years old right-handed female with a history of hypertension, dyslipidemia, hypothyroidism, stroke, GERD, gallstone, she was admitted to the [facility] on 01/09/25 with a chief company of dizziness. I have seen and examined the patient, I have discussed with her nurse, she reports doing fine, she has walked around with no dizziness, no headache Earlier today, his blood pressure was extremely high during orthostatic vitals, I suspect equipment malfunction The orthostatic vitals in the evening looks fine AFib, sinus pauses captured on the telemetry CBC, 01/09/2025: Unremarkable CMP, 01/09/2025: Unremarkable TG/HDL/LDL/HDL, 09/15/2024: 171/165/84/53 Vitamin B12, 09/15/2024: 266 Folic acid, 09/15/2024: 10.52 TSH, 01/09/2025: 2.74 EEG, 01/10/2025: Normal Carotid Doppler, 01/09/2025: Severe atherosclerotic disease with no hemodynamically significant stenosis. Any narrowing is less than 50%. CT head, 01/09/2025: 1. No acute intracranial abnormality. 2. Right frontotemporal and external capsule encephalomalacia consistent with sequelae of remote insult. 3. Chronic sequelae of microvascular disease and atrophic cortical volume loss MRI head, 01/10/2025: 1. No acute intracranial process identified. 2. Sequela of old hemorrhagic infarct in the right basal ganglia. 3. Mild global cortical atrophy and moderate chronic microvascular ischemic changes. vital signs Vital Sign Date Time Temp Pulse Resp B/P (MAP) Pulse Ox O2 Delivery O2 Flow Rate FiO2 01/11/25 21:00 121/71 (88) 01/11/25 21:00 98.7 68 16 95 98.7 01/11/25 08:05 Room Air* 0 21 Total Intake and Output 01/10/25 01/10/25 01/11/25 15:00 23:00 07:00 Intake Total 775 ml 800 ml Balance 775 ml 800 ml medications Current Medications Medications Dose Ordered Sig/Jordan Route Start Time Stop Time Status Last Admin Dose Admin Amlodipine Besylate 5 mg DAILY PO 01/09/25 10:00 01/11/25 08:59 5 MG Clonidine HCl 0.1 mg Q4HP PRN PO 01/09/25 03:00 01/11/25 13:34 0.1 MG Benazepril HCl 20 mg DAILY PO 01/09/25 10:00 01/11/25 08:59 20 MG Atorvastatin Calcium 20 mg HS PO 01/09/25 22:00 01/10/25 21:53 20 MG Levothyroxine Sodium 50 mcg QAM@0600 PO 01/09/25 06:00 01/11/25 05:57 50 MCG Pantoprazole Sodium 40 mg DAILY IV 01/09/25 10:00 01/11/25 08:57 40 MG Sodium Chloride 10 ml Q8HR IV 01/09/25 06:00 01/11/25 14:00 10 ML Acetaminophen/ Hydrocodone Bitart 1 tab Q4HP PRN PO 01/09/25 03:00 Ondansetron HCl 4 mg Q4HP PRN IV 01/09/25 03:00 Docusate Sodium 100 mg BIDPRN PRN PO 01/09/25 03:00 Acetaminophen 650 mg Q6HP PRN PO 01/09/25 03:00 Nitroglycerin 0.4 mg Q5MINP PRN SL 01/09/25 04:45 Morphine Sulfate 2 mg Q30M PRN IV 01/09/25 04:45 Meclizine HCl 25 mg Q8HPRN PRN PO 01/09/25 05:00 Cancel Meclizine HCl 25 mg Q8HPRN PRN PO 01/09/25 15:15 Lorazepam 1 mg ONCE PRN IV 01/09/25 22:30 01/10/25 09:31 1 MG Aspirin 81 mg DAILY PO 01/10/25 10:00 01/11/25 08:58 81 MG Ceftriaxone Sodium 50 ml @ 100 mls/hr DAILY@09 IV 01/10/25 12:00 01/11/25 08:57 100 MLS/HR objective General: the patient is well developed and nourished. No acute distress. MENTAL STATUS: Awake and alert. Oriented to person, place, time and general circumstances. Poorly organized historian SPEECH, LANGUAGE, HIGHER CORTICAL FUNCTION: no aphasia or dysathria. CRANIAL NERVES: Pupils are equal, round and reactive. EOMs full and conjugate. Facial sensation intact in all three divisions bilaterally. Mandibular strength intact. Facial muscles symmetrical and strength intact. Tongue midline. No fasciculations or atrophy. SENSATION: Sensation to touch and pinprick is normal. MOTOR: Normal tone in the upper and lower extremity. Normal muscle bulk. No fasciculations. No abnormal movements or posturing. Muscle strength of the major groups in the extremities is 5/5 with left leg drift. REFLEXES: Deep tendon reflexes are symmetrical. No pathological reflexes. CEREBELLAR/COORDINATION: Finger to nose and heel to balderas are normal bilaterally. GAIT/STATION: deferred. laboratory and microbiology Laboratory Tests 01/10/25 06:15 Test 01/10/25 06:15 Range/Units Serum Glucose 91 74-106 mg/dL Problem List Episodic event with lightheadedness, fatigue, and mild confusion Chronic stroke with minimal left leg weakness Multiple independent cardiovascular risk factors AFib Sinus pauses Assessment/Plan Monitoring Supportive treatment Telemetry Aspirin 81 mg daily Lipitor 40 mg daily GI prophylaxis Cardiology on case More recommendation per clinical course This medical document was created using an electronic medical record system with [employer] dictation system. Although this document has been carefully reviewed, there may still be some phonetic and typographical errors. These areas are purely typographical due to imperfections of the software programs, and do not reflect any compromise in the patient's medical care. Prognosis poor Plan discussed with: Patient, Other RAJNI BROWN MD Jan 11, 2025 21:37
--- NOTE | 2025-01-11 21:43 | DVHEEG2 ---
Neurology EEG Procedural Note Procedural Note EXAM DATE: 01/10/2025 REFERRING DOCTOR: Dr. Brown TECHNIQUE: Eighteen channels of EEG, 2 channels of EOG, and 1 channel of EKG were recorded using the [employer] 10/20 system. CLINICAL DATA: The patient was referred for an EEG evaluation for the evidence of seizure disorder. MEDICATIONS: See the chart BACKGROUND ACTIVITY: While the patient was awake, the background activity consisted of well regulated 8-9 Hz rhythmic waveforms, symmetrically distributed over both posterior quadrants and was reactive to eye opening. ACTIVATION: Hyperventilation: Not done Photic Stimulation: Not done Sleep: Stage I IMPRESSION: This is a normal EEG. No focal, lateralized, or epileptiform features are noted. If clinically indicated to rule out a seizure disorder, recommend repeat EEG with sleep deprivation. The EKG channel showed a regular heart rate of 60/minute [place] [address] RAJNI BROWN MD Jan 11, 2025 21:43
[2025-01-12] VITALS (7 sets, daily range): BP systolic 108–148; BP diastolic 74–89; PULSE 15–90; RESP 16–96; TEMP 36.7; O2SAT 95–100
[2025-01-12] MEDS ORDERED: ATOR40TA52 PO (10:23)
[2025-01-12] MEDS ORDERED: CEFD300C2 PO (10:23)
--- NOTE | 2025-01-12 10:27 | DVHDS2 ---
Discharge Summary Date of Admission Jan 09, 2025 at 04:45 Date of Discharge: Jan 12, 2025 Admitting Diagnosis Dizziness and giddiness Labs/Diagnostic Data: Laboratory Results Test 01/10/25 06:15 01/10/25 01:40 01/09/25 04:27 01/09/25 01:47 White Blood Count 5.3 10^3/uL (4.4-10.8) Red Blood Count 4.79 10^6/uL (4.0-5.20) Hemoglobin 14.3 g/dL (12.2-16.2) Hematocrit 41.8 % (36.0-46.0) Mean Corpuscular Volume 87.4 fL (80.0-100.0) Mean Corpuscular Hemoglobin 29.9 pg (28.0-32.0) Mean Corpuscular Hemoglobin Concent 34.3 g/dL (32.0-36.0) Red Cell Distribution Width 14.4 % (11.8-14.3) Platelet Count 189 10^3/uL (140-450) Mean Platelet Volume 8.6 fL (6.9-10.8) Neutrophils (%) (Auto) 58.0 % (37.0-80.0) Lymphocytes (%) (Auto) 24.8 % (10.0-50.0) Monocytes (%) (Auto) 10.8 % (0.0-12.0) Eosinophils (%) (Auto) 5.7 % (0.0-7.0) Basophils (%) (Auto) 0.7 % (0.0-2.0) Neutrophils # (Auto) 3.0 10 ^3/uL (1.6-8.6) Lymphocytes # (Auto) 1.3 10 ^3/uL (0.4-5.4) Monocytes # (Auto) 0.6 10 ^3/uL (0-1.3) Eosinophils # (Auto) 0.3 10 ^3/uL (0-0.8) Basophils # (Auto) 0 10 ^3/uL (0-0.2) Nucleated Red Blood Cells 0.1 % Sodium Level 144 mmol/L (136-145) Potassium Level 3.8 mmol/L (3.5-5.1) Chloride Level 108 mmol/L (98-107) Carbon Dioxide Level 27 mmol/L (20-31) Anion Gap 9 (5-15) Blood Urea Nitrogen 7 mg/dL (9-23) Creatinine 0.66 mg/dL (0.550-1.02) Glomerular Filtration Rate Calc 89 mL/min (>90) BUN/Creatinine Ratio 10.6 (10.0-20.0) Serum Glucose 91 mg/dL (74-106) Calcium Level 8.9 mg/dL (8.7-10.4) Total Bilirubin 1.0 mg/dL (0.2-1.0) Aspartate Amino Transferase (AST) 19 U/L (13-40) Alanine Aminotransferase (ALT) 15 U/L (7-40) Alkaline Phosphatase 94 U/L (46-116) Total Protein 5.4 g/dL (5.7-8.2) Albumin 3.7 g/dL (3.2-4.8) Urine Color Dark yellow (Yellow) Urine Clarity Turbid (Clear) Urine pH 5.5 (5.0-9.0) Urine Specific [place] 1.014 (1.001-1.035) Urine Protein Negative (Negative) Urine Ketones Negative (Negative) Urine Blood Trace /uL (Negative) Urine Nitrite 2+ (Negative) Urine Bilirubin Negative (Negative) Urine Urobilinogen Normal mg/dL (Negative) Urine Leukocyte Esterase 3+ /uL (Negative) Urine RBC 8 /hpf (0 - 4) Urine WBC Clumps Present /hpf (None Seen) Urine Microscopic WBC 254 /HPF (0-5) Urine Squamous Epithelial Cells Few /hpf (<5) Urine Bacteria None seen /hpf (None Seen) Urine Mucus Few (None Seen) Urine Glucose Normal mg/dL (Normal) Thyroid Stimulating Hormone (TSH) 2.74 uIU/mL (0.55-4.78) Troponin I High Sensitivity 6 ng/L (</=34) Test 01/09/25 00:40 B-Type Natriuretic Peptide 56.72 pg/mL (0-100) Other Laboratory Tests 01/10/25 06:15 Brief Hx & Hospital Course: History of Present Illness The patient is a 79-year-old female with multiple past medical history including COPD, CVA, lung cancer, thyroid disease, and hypertension who presented to [facility] ED with complaint of dizziness. Patient reports she has been experiencing dizziness for the past 2 months, described as spinning sensation, associated with high blood pressure, reporting systolic blood pressure in the 190s at home, getting worse that prompted this visit. Patient was seen and evaluated in the ED, laboratory data shows WBC 6.4, platelets 226, sodium 141, potassium 3.3, BUN 8, creatinine 0.74, glucose 111, calcium 9.8, BNP 56.72, troponin < 3, blood pressure 185/125 trending down to 150/91, heart rate 85, temperature 98.1 F, O2 saturation 94% on room air. Head CT results pending, please see medication orders section in the computer. On my assessment, patient denied chest pain, no headache, no diaphoresis, no shortness of breaths, no nausea, no vomiting, no fever, no chills. Patient was admitted for further evaluation and medical management. Course of hospitalization: Urinalysis reveals patient has positive UTI. Patient was started on IV Rocephin with improvement with her neurological status. Patient did receive MRI of the brain which was negative for any acute pathology. Neurology consultation was also placed. Patient disclosed that for the past two months she has had intermittent periods of generalized weakness as well as having racing heart rate that wakes her up in the middle of the night. Bedside telemetry monitoring reveals with the patient does have periods of atrial tachycardia. Echocardiogram was performed which revealed normal ejection fraction with no valvular disease. Recommendations by Dr. Beasley for outpatient assessment of implantable loop recorder versus Holter monitor we will be placed and discharge plan. Patient will be continued on aspirin and statins as well as cefdinir 300 mg p.o. b.i.d. for five days for treatment of her UTI. Patient will also follow up with the discharge Clinic in one week. Patient was agreeable with discharge plan. Questions answered. Physical examination General: Alert and Oriented x3. No acute distress. Well-nourished. Eyes: EOMI. Anicteric. HENT: Moist mucous membranes. Lungs: Clear to auscultation bilaterally. No accessory muscle use. Cardiovascular: Regular rate and rhythm. No murmur. No JVD. Abdomen: Soft, non-tender and non-distended. No palpable masses. Extremities: No edema. Non-tender. Skin: No rashes or lesions. Warm. Neurologic: No focal neurological deficits. CN II-XII grossly intact, but not individually tested. Psychiatric: Cooperative. Appropriate mood and affect. Total time spent with patient discussing and formulating plan of care: 35 minutes. This medical document was created using an electronic medical record system with [employer] dictation system. Although this document has been carefully reviewed, there may still be some phonetic and typographical errors. These areas are purely typographical due to imperfections of the software programs, and do not reflect any compromise in the patient's medical care. Consults/Reason for consult Neurology: Rule out CVA Cardiology: Atrial tachycardia, bradycardia Condition at Discharge: Fair Final Diagnosis/Problems List Metabolic encephalopathy secondary to UTI Secondary diagnosis: -ruled out CVA -history of CVA -accelerated hypertension -metabolic encephalopathy -history of lung CA with lobectomy -COPD -GERD -complicated cystitis -paroxysmal atrial fibrillation with periods of bradycardia. Noted R on T Discharge Disposition: Home Discharge Instruct/Medications Diet: Cardiac 2g Na,low cholest Activity: No Restrictions, As Tolerated Follow Up/Referral: Follow up with Dr. Beasley in 1-2 weeks to evaluate for possible implantable loop recorder versus Holter monitor Medications: Atorvastatin 40 mg q.h.s. Aspirin 81 mg p.o. daily Cefdinir 300 mg p.o. b.i.d. x5 days Continue all previous home medications Scheduled Amlodipine Besylate (Amlodipine Besylate), 1 TAB PO DAILY, (Reported) Aspirin (Parish Aspirin Ec Low Dose), 1 TAB PO DAILY, (Reported) Atorvastatin Calcium (Atorvastatin Calcium), 40 MG PO DAILY, (Reported) Atorvastatin Calcium (Atorvastatin Calcium), 1 TAB PO QPM Cefdinir (Cefdinir), 1 CAP PO BID Levothyroxine Sodium (Levothyroxine Sodium), 1 TAB PO DAILY, (Reported) Pantoprazole Sodium Sesquihydr (Pantoprazole Sodium), 1 TAB PO DAILY, (Reported) Potassium Chloride (Klor-Con 10), 1 TAB PO BID, (Reported) Discontinued Medications Benazepril Hcl (Benazepril Hcl), 1 TAB PO DAILY, (Reported) 36 Discharge Statement: "Patient was advised to return to the ER or call 911 if any headaches, dizziness, shortness of breath, chest pain, abdominal pain, bleeding, fevers, or worsening of medical condition. Patient was counseled about treatment plan, medications, possible side effects, patientverbalized understanding. All questions were answered to the best of my ability. This discharge took greater then 30 minutes in planning, reviewing documentation, counseling the patient, and discussing with other team members." ASSESSMENT ASSESSMENT Assessment Metabolic encephalopathy secondary to UTI Date of Service: Jan 12, 2025 Billing Provider: PANCHITO BARRERA NP Common Visit Codes: 64427-XLP/OBS DISCH DAY >30min PANCHITO BARRERA NP Jan 12, 2025 10:27
--- NOTE | 2025-01-12 10:58 | DVHPN2 ---
Progress Note - Dictate Date Seen: Jan 12, 2025 Medical Necessity Reason Pt with a Central, PICC or Fol: No Subjective Mr. Alexandre is a 79 years old right-handed female with a history of hypertension, dyslipidemia, hypothyroidism, stroke, GERD, gallstone, she was admitted to the [facility] on 01/09/25 with a chief company of dizziness. I have seen and examined the patient, I have discussed with her nurse, she reports doing fine, no dizziness She confirmed that she has heart trouble for 2-3 years, where her heart reason up and slow down, and this was captured when she was in [facility] Cardiology input appreciated Case was discussed with Tyron CBC, 01/09/2025: Unremarkable CMP, 01/09/2025: Unremarkable TG/HDL/LDL/HDL, 09/15/2024: 171/165/84/53 Vitamin B12, 09/15/2024: 266 Folic acid, 09/15/2024: 10.52 TSH, 01/09/2025: 2.74 EEG, 01/10/2025: Normal Carotid Doppler, 01/09/2025: Severe atherosclerotic disease with no hemodynamically significant stenosis. Any narrowing is less than 50%. CT head, 01/09/2025: 1. No acute intracranial abnormality. 2. Right frontotemporal and external capsule encephalomalacia consistent with sequelae of remote insult. 3. Chronic sequelae of microvascular disease and atrophic cortical volume loss MRI head, 01/10/2025: 1. No acute intracranial process identified. 2. Sequela of old hemorrhagic infarct in the right basal ganglia. 3. Mild global cortical atrophy and moderate chronic microvascular ischemic changes. vital signs Vital Sign Date Time Temp Pulse Resp B/P (MAP) Pulse Ox O2 Delivery O2 Flow Rate FiO2 01/12/25 10:27 136/74 01/12/25 08:59 98.1 73 17 95 98.1 01/12/25 08:00 Room Air* 0 21 Total Intake and Output 01/11/25 01/11/25 01/12/25 15:00 23:00 07:00 Intake Total 800 ml 600 ml Balance 800 ml 600 ml medications Current Medications Medications Dose Ordered Sig/Jordan Route Start Time Stop Time Status Last Admin Dose Admin Amlodipine Besylate 5 mg DAILY PO 01/09/25 10:00 01/12/25 10:27 5 MG Clonidine HCl 0.1 mg Q4HP PRN PO 01/09/25 03:00 01/11/25 13:34 0.1 MG Benazepril HCl 20 mg DAILY PO 01/09/25 10:00 01/12/25 10:26 20 MG Atorvastatin Calcium 20 mg HS PO 01/09/25 22:00 01/11/25 21:49 20 MG Levothyroxine Sodium 50 mcg QAM@0600 PO 01/09/25 06:00 01/12/25 05:29 50 MCG Pantoprazole Sodium 40 mg DAILY IV 01/09/25 10:00 01/12/25 10:24 40 MG Sodium Chloride 10 ml Q8HR IV 01/09/25 06:00 01/12/25 05:30 10 ML Acetaminophen/ Hydrocodone Bitart 1 tab Q4HP PRN PO 01/09/25 03:00 Ondansetron HCl 4 mg Q4HP PRN IV 01/09/25 03:00 Docusate Sodium 100 mg BIDPRN PRN PO 01/09/25 03:00 Acetaminophen 650 mg Q6HP PRN PO 01/09/25 03:00 Nitroglycerin 0.4 mg Q5MINP PRN SL 01/09/25 04:45 Morphine Sulfate 2 mg Q30M PRN IV 01/09/25 04:45 Meclizine HCl 25 mg Q8HPRN PRN PO 01/09/25 05:00 Cancel Meclizine HCl 25 mg Q8HPRN PRN PO 01/09/25 15:15 Lorazepam 1 mg ONCE PRN IV 01/09/25 22:30 01/10/25 09:31 1 MG Aspirin 81 mg DAILY PO 01/10/25 10:00 01/12/25 10:25 81 MG Ceftriaxone Sodium 50 ml @ 100 mls/hr DAILY@09 IV 01/10/25 12:00 01/12/25 10:25 100 MLS/HR objective General: the patient is well developed and nourished. No acute distress. MENTAL STATUS: Awake and alert. Oriented to person, place, time and general circumstances. Poorly organized historian SPEECH, LANGUAGE, HIGHER CORTICAL FUNCTION: no aphasia or dysathria. CRANIAL NERVES: Pupils are equal, round and reactive. EOMs full and conjugate. Facial sensation intact in all three divisions bilaterally. Mandibular strength intact. Facial muscles symmetrical and strength intact. Tongue midline. No fasciculations or atrophy. SENSATION: Sensation to touch and pinprick is normal. MOTOR: Normal tone in the upper and lower extremity. Normal muscle bulk. No fasciculations. No abnormal movements or posturing. Muscle strength of the major groups in the extremities is 5/5 with left leg drift. REFLEXES: Deep tendon reflexes are symmetrical. No pathological reflexes. CEREBELLAR/COORDINATION: Finger to nose and heel to balderas are normal bilaterally. GAIT/STATION: deferred. laboratory and microbiology Laboratory Tests 01/10/25 06:15 Test 01/10/25 06:15 Range/Units Serum Glucose 91 74-106 mg/dL Problem List Episodic event with lightheadedness, fatigue, and mild confusion Chronic stroke with minimal left leg weakness Multiple independent cardiovascular risk factors AFib Sinus pauses Assessment/Plan Monitoring Supportive treatment Telemetry Aspirin 81 mg daily Lipitor 40 mg daily GI prophylaxis Cardiology on case More recommendation per clinical course This medical document was created using an electronic medical record system with [employer] dictation system. Although this document has been carefully reviewed, there may still be some phonetic and typographical errors. These areas are purely typographical due to imperfections of the software programs, and do not reflect any compromise in the patient's medical care. Prognosis poor Plan discussed with: Other RAJNI BROWN MD Jan 12, 2025 10:58
[2025-01-12] MEDS ORDERED: AMLO1TAB22 PO (15:05)
== END 2025-01-12 13:10 | disposition home or self-care (01) | DRG 304 ==
LOC: EDBD 00:21 → ER 00:21 → OVERFLOW 04:45 → TELE-WESTW 12:01
PROVIDERS: ADMIT Nurse Practitioner Acute Care; ATTEND Nurse Practitioner Acute Care
DX: I16.1 Hypertensive emergency (principal); G93.41 Metabolic encephalopathy; N30.01 Acute cystitis with hematuria; I47.19 Other supraventricular tachycardia; I10 Essential (primary) hypertension; J44.9 Chronic obstructive pulmonary disease, unspecified; K21.9 Gastro-esophageal reflux disease without esophagitis; I48.0 Paroxysmal atrial fibrillation; E66.9 Obesity, unspecified; F17.210 Nicotine dependence, cigarettes, uncomplicated; I16.0 Hypertensive urgency; E87.6 Hypokalemia; E78.5 Hyperlipidemia, unspecified; E03.9 Hypothyroidism, unspecified; I49.3 Ventricular premature depolarization; G40.909 Epilepsy, unspecified, not intractable, without status epilepticus; Z79.899 Other long term (current) drug therapy; Z88.8 Allergy status to other drugs, medicaments and biological substances; Z86.73 Personal history of transient ischemic attack (TIA), and cerebral infarction without residual deficits; Z85.118 Personal history of other malignant neoplasm of bronchus and lung; Z82.49 Family history of ischemic heart disease and other diseases of the circulatory system; Z82.3 Family history of stroke; Z79.2 Long term (current) use of antibiotics; Z68.29 Body mass index [BMI] 29.0-29.9, adult
CPT/HCPCS: 36415; 70450; 70551; 80048; 80053; 81001; 83880; 84443; 84484; 85025; 93005; 93306; 93886; 95819; G0378; J2470